=== PATIENT | female | born 1940 | race Two or more races ===

== ENCOUNTER 2024-04-24 13:18 | Emergency (ER) | payer MEDICARE, OTHER, SELFPAY ==
[2024-04-24 13:25] VITALS: BP 140/55
--- NOTE | 2024-04-24 15:25 | ED.GENMED ---
History of Present Illness
<Mikhail Acosta MD - Last Filed: 04/25/24 16:16>
General
Chief Complaint: Cold/Flu/URI Symptoms
Source: patient
Exam Limitations: none
Time Seen by Provider: 04/24/24 14:43
History of Present Illness
History of Present Illness:
83-year-old female brought in with her daughter. Complaining of some fever and chills for 3 days. Also some mild pain in the left flank posteriorly. No cough. Some mild shortness of breath at times.
Past History
<Mikhail Acosta MD - Last Filed: 04/25/24 16:16>
Past History
ED Past Medical History: HTN
ED Past Surgical History:
Social History
Tobacco: Non-smoker
Alcohol: None
Drug: None
Review of Systems
<Mikhail Acosta MD - Last Filed: 04/25/24 16:16>
Review of Systems
All Other Systems: Not applicable
Constitutional: Reports chills; Denies fever
Cardiac: Reports no symptoms
ABD/GI: Reports no symptoms
Phy Exam
<Mikhail Acosta MD - Last Filed: 04/25/24 16:16>
Physical Exam
Physical Exam:
GENERAL: Alert and oriented in no apparent distress
EYE: Orbits normal.
NECK: Supple, no significant adenopathy.
ENT: Pharynx without erythema
CARDIAC: Regular rate and rhythm without any obvious murmurs.
LUNGS: No respiratory distress however crackles in the left base. No CVA tenderness
ABDOMEN: Soft, without focal tenderness or distention
NEUROLOGICAL: Alert and oriented , grossly non-focal
SKIN: Warm and dry, no rash or lesion, no discoloration, skin intact.
MUSCULOSKELETAL: No edema,no deformity.Good color
PSYCH: Normal and appropriate interaction.
Course
<Mikhail Acosta MD - Last Filed: 04/25/24 16:16>
Orders/Labs/Results
Orders:
Orders
04/24/24 14:50
IV Insert/Care/Rem.- Treatment PRN
Pulse Ox/cont/shift [RESP] Stat
Quantity: 1
04/24/24 14:51
Electrocardiogram (*1) Stat
Reason for Study: Other
Other Reason for Exam: pneumonia
EKG- Treatment ONCE
CR Chest - 2 Views Urgent
Comment:
Reason For Exam: Chills/Rales left base
04/24/24 15:22
COVID-19 Antigen Urgent
Source: Nasal Swab
Complete Blood Count/With Diff Urgent
Influenza A+B Rapid Molecular Urgent
ELIZA Source: Nasal Swab
Specimen Description:
04/24/24 15:52
Basic Metabolic Panel Urgent
04/24/24 16:13
Urinalysis Reflex To Culture Urgent
Date Specimen was Collected: 04/24/24
Time Specimen was Collected: 16:01
Urine Microscopic Reflex Cult Urgent
04/24/24 16:55
Add On- LAB Urgent
Tests Added?: probnp
04/24/24 17:02
NT-proBNP Urgent
04/24/24 18:46
D-Dimer Urgent
Abnormal Lab Results
04/24/24 04/24/24 04/24/24
15:22 15:52 16:13
RBC 3.42 L 10^6/uL
(4.20-5.40)
Hgb 10.9 L g/dL
(12.0-16.0)
Hct 31.4 L %
(37.0-47.0)
MCH 31.9 H pg
(27.0-31.0)
Absolute Lymphs (auto) 1.0 L 10^3/uL
(1.2-3.4)
Absolute Monos (auto) 0.9 H 10^3/uL
(0.1-0.6)
Lymphocytes % 12.6 L %
(20.5-51.1)
Monocytes % 11.4 H %
(1.7-9.3)
D-Dimer
Sodium 126 L mmol/L
(135-145)
Chloride 89 L mmol/L
(98-107)
BUN 22 H mg/dl
(7-17)
Glucose 102 H mg/dl
(70-99)
Urine RBC 3-6 A /HPF
(0-2)
Urine Bacteria (Reflex) Few A
(Negative)
Urine Albumin (Reflex) 3+ A
(Neg - Trace)
04/24/24
18:46
RBC
Hgb
Hct
MCH
Absolute Lymphs (auto)
Absolute Monos (auto)
Lymphocytes %
Monocytes %
D-Dimer 0.62 H ug/mlFEU
(0.00-0.50)
Sodium
Chloride
BUN
Glucose
Urine RBC
Urine Bacteria (Reflex)
Urine Albumin (Reflex)
04/24/24 15:22
04/24/24 15:52
Vital Signs
Initial and Last Documented VS:
Initial Vital Signs
Temp Pulse Resp BP Pulse Ox
98.3 F 69 16 140/55 100
04/24/24 13:25 04/24/24 13:25 04/24/24 13:25 04/24/24 13:25 04/24/24 13:25
Last Documented Vital Signs
Temp Pulse Resp BP Pulse Ox
97.8 F 79 17 159/66 100
04/24/24 19:39 04/24/24 19:39 04/24/24 19:39 04/24/24 19:39 04/24/24 19:39
<Samreen De Oliveira MD - Last Filed: 04/24/24 19:31>
Orders/Labs/Results
Orders:
Orders
04/24/24 14:50
IV Insert/Care/Rem.- Treatment PRN
Pulse Ox/cont/shift [RESP] Stat
Quantity: 1
04/24/24 14:51
Electrocardiogram (*1) Stat
Reason for Study: Other
Other Reason for Exam: pneumonia
EKG- Treatment ONCE
CR Chest - 2 Views Urgent
Comment:
Reason For Exam: Chills/Rales left base
04/24/24 15:22
COVID-19 Antigen Urgent
Source: Nasal Swab
Complete Blood Count/With Diff Urgent
Influenza A+B Rapid Molecular Urgent
ELIZA Source: Nasal Swab
Specimen Description:
04/24/24 15:52
Basic Metabolic Panel Urgent
04/24/24 16:13
Urinalysis Reflex To Culture Urgent
Date Specimen was Collected: 04/24/24
Time Specimen was Collected: 16:01
Urine Microscopic Reflex Cult Urgent
04/24/24 16:55
Add On- LAB Urgent
Tests Added?: probnp
04/24/24 17:02
NT-proBNP Urgent
04/24/24 18:46
D-Dimer Urgent
Abnormal Lab Results
04/24/24 04/24/24 04/24/24
15:22 15:52 16:13
RBC 3.42 L 10^6/uL
(4.20-5.40)
Hgb 10.9 L g/dL
(12.0-16.0)
Hct 31.4 L %
(37.0-47.0)
MCH 31.9 H pg
(27.0-31.0)
Absolute Lymphs (auto) 1.0 L 10^3/uL
(1.2-3.4)
Absolute Monos (auto) 0.9 H 10^3/uL
(0.1-0.6)
Lymphocytes % 12.6 L %
(20.5-51.1)
Monocytes % 11.4 H %
(1.7-9.3)
D-Dimer
Sodium 126 L mmol/L
(135-145)
Chloride 89 L mmol/L
(98-107)
BUN 22 H mg/dl
(7-17)
Glucose 102 H mg/dl
(70-99)
Urine RBC 3-6 A /HPF
(0-2)
Urine Bacteria (Reflex) Few A
(Negative)
Urine Albumin (Reflex) 3+ A
(Neg - Trace)
04/24/24
18:46
RBC
Hgb
Hct
MCH
Absolute Lymphs (auto)
Absolute Monos (auto)
Lymphocytes %
Monocytes %
D-Dimer 0.62 H ug/mlFEU
(0.00-0.50)
Sodium
Chloride
BUN
Glucose
Urine RBC
Urine Bacteria (Reflex)
Urine Albumin (Reflex)
04/24/24 15:22
04/24/24 15:52
Vital Signs
Initial and Last Documented VS:
Initial Vital Signs
Temp Pulse Resp BP Pulse Ox
98.3 F 69 16 140/55 100
04/24/24 13:25 04/24/24 13:25 04/24/24 13:25 04/24/24 13:25 04/24/24 13:25
Last Documented Vital Signs
Temp Pulse Resp BP Pulse Ox
97.8 F 79 17 159/66 100
04/24/24 19:39 04/24/24 19:39 04/24/24 19:39 04/24/24 19:39 04/24/24 19:39
<Mikhail Acosta MD - Last Filed: 04/25/24 16:16>
MDM/Problems Addressed
Differential Diagnosis Includes:
Possible left lower lobe pneumonia. Possible urinary/kidney issue. Workup in progress. COVID flu chest x-ray urine. Patient in no distress
<Mikhail Acosta MD - Last Filed: 04/25/24 16:16>
*Pulse Oximetry
Patient hypoxic: no
*EKG
Interpreted by ED Provider?: Yes
Interpretation: abnormal
Comparison EKG: no changes
Heart Rate: 81
Rate: normal
Rhythm: sinus
[place]: normal axis
Interval: normal interval
QRS Pattern: right bundle branch block
Ischemia: T-wave inversion
*Critical Care Note
Total Time (30-74mins, 75-104mins- exclusive of procedures): Not Applicable
<Mikhail Acosta MD - Last Filed: 04/25/24 16:16>
Update Note
Update Note:
. Patient with hyponatremia. Crackles in the left base. May be clinical pneumonia. Possibly a mild component of CHF. Warrants inpatient management
<Samreen De Oliveira MD - Last Filed: 04/24/24 19:31>
Update Note
Update Note:
. Patient with hyponatremia. Crackles in the left base. May be clinical pneumonia. Possibly a mild component of CHF. Warrants inpatient management
731pm follow up on sign out---D dimer noted to be normal (age adjusted), recommendation for d/c.
ED Attending Note
<Mikhail Acosta MD - Last Filed: 04/25/24 16:16>
-
Portions of this chart may have been created with voice recognition software.� Occasional wrong word or��sound alike� substitutions may have occurred due to the inherent limitations of voice recognition software.
Discharge Plan
Departure
Patient Disposition: Home (Routine Discharge)
Date of Disposition: 04/24/24
Time of Disposition: 19:31
Patient with high blood pressure during this ER visit?: Yes
Discharge Problem:
Left posterior chest pain, Hyponatremia/dyspnea
Instructions: Upper Back Pain (DC), Hyponatremia, BLOOD PRESSURE
Prescriptions:
No Action
multivitamin with folic acid [Tab-A-Luba] 1 TABLET tablet
1 tab PO DAILY
hydralazine 25 MG tablet
50 mg PO BID Qty: 60 0RF
metoprolol succinate 25 MG tablet extended release 24 hr
25 mg PO DAILY Qty: 30 0RF
atorvastatin 40 mg Tablet
40 mg PO QPM Qty: 30 0RF
aspirin 81 mg Tablet,Chewable
81 mg PO DAILY Qty: 30 1RF
calcium carbonate [Calcium 500] 500 mg calcium (1,250 mg) Tablet
500 mg PO DAILY
amlodipine [Norvasc] 10 mg Tablet
10 mg PO DAILY
torsemide 10 mg tablet
5 mg PO DAILY
Referrals:
Lindsay Machado MD [Family Provider] - Tomorrow
Activity Restrictions/Additional Instructions:
Fluid restriction
Call your primary physician tomorrow to get a repeat sodium level done in 2 to 3 days
Interventions
Interventions:
*Risk Screen - Suicide Last Done: 04/24/24 13:25
*General Assessment Last Done: 04/24/24 13:25
*Neglect/Abuse Screening Last Done: 04/24/24 13:40
ED- Fall Risk Assessment Last Done: 04/24/24 19:39
*ED COVID-19 Vaccine History Last Done: 04/24/24 13:25
*Nursing Disposition Last Done: 04/24/24 19:39
ED- Pulmonary Assessment Last Done: 04/24/24 13:40
Discharge Date and Time
Discharge Date/Time: 04/24/24 19:50
Print Language: GUINEAN
[2024-04-24 15:49] LABS: % Basophils 0.4 % (0-2); % Eosinophils 0.1 % (0-6); % Immature Granulocytes 0.3 % (0-0.5); % Lymphocytes 12.6 % (20.5-51.1); % Monocytes 11.4 % (1.7-9.3); % Neutrophils 75.2 % (42.2-75.2); Absolute Monocytes 0.9 10^3/uL (0.1-0.6); Absolute Neutrophils 5.8 10^3/uL (1.4-6.5); Hematocrit 31.4 % (37.0-47.0); Hemoglobin 10.9 g/dL (12.0-16.0); Mean Corp Hgb Conc. 34.7 g/dL (33.0-37.0); Mean Corpuscular Hgb 31.9 pg (27.0-31.0); Mean Corpuscular Volume 91.8 fL (81.0-99.0); Mean Platelet Volume 10.4 fL (7.4-10.4); Nucleated Red Blood Cells % 0 %; Platelet Count 197 10^3/uL (130-400); Red Blood Cell Count 3.42 10^6/uL (4.20-5.40); White Blood Cell Count 7.7 10^3/uL (4.8-10.8)
[2024-04-24 15:53] LABS: COVID-19 Antigen Negative (Negative)
[2024-04-24 16:20] LABS: Urine Albumin 3+ (Neg - Trace); Urine Bilirubin Negative (Negative); Urine Character Clear (Clear); Urine Color Yellow; Urine Glucose Negative (Negative); Urine Ketone Negative (Negative); Urine Leukocyte Negative (Negative); Urine Nitrite Negative (Negative); Urine Occult Blood Negative (Negative); Urine Specific Gravity 1.015 (<1.030); Urine Urobilinogen Negative (Neg - 1+)
[2024-04-24 16:24] LABS: Blood Urea Nitrogen 22 mg/dl (7-17); Calcium 8.9 mg/dl (8.4-10.2); Carbon Dioxide 26 mmol/L (22-30); Chloride 89 mmol/L (98-107); Glucose 102 mg/dl (70-99); Potassium 4.5 mmol/L (3.5-5.1); Sodium 126 mmol/L (135-145); eGFR > 60.00
[2024-04-24 16:31] LABS: Urine Mucus Few
[2024-04-24 16:32] LABS: Urine Bacteria Few (Negative); Urine Hyaline Cast >15 /LPF (0-2)
[2024-04-24 17:32] LABS: NT-proBNP 3780 pg/ml
[2024-04-24 19:15] LABS: D-Dimer 0.62 ug/mlFEU (0.00-0.50)
[2024-04-24 19:39] VITALS: BP 159/66
== END 2024-04-24 19:50 | disposition home or self-care (01) ==
LOC: EMR 13:18
PROVIDERS: EMERGENCY PHYSICIAN Emergency Medicine; FAMILY PHYSICIAN Emergency Medicine
DX: R07.89 Other chest pain (principal); E87.1 Hypo-osmolality and hyponatremia; R06.00 Dyspnea, unspecified; R50.9 Fever, unspecified; I10 Essential (primary) hypertension
CPT/HCPCS: 99283; 71046; 80048; 81003; 81015; 83880; 85025; 85379; 87502; 87811; 93005

== ENCOUNTER → 2024-05-05 07:12 | Outpatient (REF) | payer MEDICARE, OTHER, SELFPAY | LOC: RCS 07:12 | PROVIDERS: ATTENDING PHYSICIAN Internal Medicine Cardiovascular Disease; FAMILY PHYSICIAN Emergency Medicine | DX: I10 Essential (primary) hypertension (principal); I50.30 Unspecified diastolic (congestive) heart failure | CPT/HCPCS: 93306 ==

== ENCOUNTER 2024-09-10 17:22 | Inpatient (IN) | payer MEDICARE, OTHER, SELFPAY ==
[2024-09-10] VITALS (10 sets, daily range): BP systolic 119–158; BP diastolic 48–65; BMI 24.1; BMI 23.0
[2024-09-10 14:52] LABS: % Basophils 0.1 % (0-2); % Immature Granulocytes 0.5 % (0-0.5); % Lymphocytes 2.6 % (20.5-51.1); % Monocytes 8.3 % (1.7-9.3); % Neutrophils 88.5 % (42.2-75.2); Absolute Immature Granulocytes 0.1 10^3/uL (0-0.05); Absolute Lymphocytes 0.3 10^3/uL (1.2-3.4); Absolute Monocytes 0.9 10^3/uL (0.1-0.6); Absolute Neutrophils 9.3 10^3/uL (1.4-6.5); Hematocrit 30.3 % (37.0-47.0); Hemoglobin 10.2 g/dL (12.0-16.0); Mean Corp Hgb Conc. 33.7 g/dL (33.0-37.0); Mean Corpuscular Hgb 31.1 pg (27.0-31.0); Mean Corpuscular Volume 92.4 fL (81.0-99.0); Mean Platelet Volume 10.3 fL (7.4-10.4); Nucleated Red Blood Cells % 0 %; Platelet Count 229 10^3/uL (130-400); Red Blood Cell Count 3.28 10^6/uL (4.20-5.40); Red Cell Dist. Width 12.1 % (11.5-14.5); White Blood Cell Count 10.5 10^3/uL (4.8-10.8)
[2024-09-10 15:04] LABS: ALT (SGPT) 29 U/L (0-35); AST (SGOT) 37 U/L (14-36); Albumin 4.2 g/dl (3.5-5.0); Alkaline Phosphatase 95 U/L (38-126); Blood Urea Nitrogen 26 mg/dl (7-17); Calcium 9.3 mg/dl (8.4-10.2); Carbon Dioxide 28 mmol/L (22-30); Chloride 89 mmol/L (98-107); Estimated Creatinine Clearance 32 ml/min; Glucose 173 mg/dl (70-99); Potassium 4.7 mmol/L (3.5-5.1); Sodium 125 mmol/L (135-145); Total Bilirubin 0.8 mg/dl (0.2-1.3); Total Protein 7.2 g/dl (6.3-8.2); eGFR 55.55
--- NOTE | 2024-09-10 15:12 | ED.GENMED ---
History of Present Illness
General
Chief Complaint: Weakness
Time Seen by Provider: 09/10/24 14:21
History of Present Illness
History of Present Illness:
84-year-old female with history of hypertension presenting to the emergency department for shortness of breath and weakness. Patient arrives with daughter who notes symptoms for the past week. However, symptoms appeared to have worsened today.
Patient was saying that she did not feel well so daughter called the ambulance. She does note that she saw the asset manager yesterday, told her everything was okay. She did change her medications, stopped her amlodipine and started nifedipine
instead. Patient has had increased difficulty breathing, swelling in her legs, swelling in her face. Does also note dyspnea on exertion. Denies chest pain. Denies cough or fever. Denies abdominal pain or GI symptoms. Denies any known sick
contacts. Denies additional acute complaints
Past History
Past History
ED Past Medical History: HTN
ED Past Surgical History:
Social History
Tobacco: Non-smoker
Alcohol: None
Drug: None
Phy Exam
Physical Exam
Physical Exam:
General: no clinical signs of dehydration, nontoxic and in no acute distress
HEENT: protecting airway
Neck: appears supple, JVD
CV: Normal heart rate, regular rhythm, no evidence of cyanosis
Resp: Mild tachypnea with crackles bilaterally
Abd: Soft and non-distended, no tenderness to palpation
Extremities: No deformities, minimal swelling to the ankles
Neuro: alert, no focal neurologic deficit
: deferred
Rectal: deferred
Psych: Normal affect
Skin: Intact
Course
Orders/Labs/Results
Orders:
Orders
09/10/24 14:23
EKG [Electrocardiogram (*1)] Urgent
Reason for Study: Fatigue / Weakness
09/10/24 14:24
EKG- Treatment ONCE
09/10/24 14:34
COVID-19 Antigen Urgent
Source: Nasal Swab
Complete Blood Count/With Diff Urgent
Comprehensive Metabolic Panel Urgent
Influenza A+B Rapid Molecular Urgent
ELIZA Source: Nasal Swab
Specimen Description:
09/10/24 14:45
CR Chest - 2 Views Urgent
Comment:
Reason For Exam: SOB
09/10/24 14:51
NT-proBNP Urgent
Troponin I Urgent
09/10/24 15:15
Electrocardiogram (*1) Urgent
Reason for Study: Fatigue / Weakness
EKG- Treatment ONCE
09/10/24 16:21
Procalcitonin Urgent
PCT Algorithmm Indication: Respiratory
Abnormal Lab Results
09/10/24
14:34
RBC 3.28 L 10^6/uL
(4.20-5.40)
Hgb 10.2 L g/dL
(12.0-16.0)
Hct 30.3 L %
(37.0-47.0)
MCH 31.1 H pg
(27.0-31.0)
Abs Immat Gran (auto) 0.1 H 10^3/uL
(0-0.05)
Absolute Neuts (auto) 9.3 H 10^3/uL
(1.4-6.5)
Absolute Lymphs (auto) 0.3 L 10^3/uL
(1.2-3.4)
Absolute Monos (auto) 0.9 H 10^3/uL
(0.1-0.6)
Neutrophils % 88.5 H %
(42.2-75.2)
Lymphocytes % 2.6 L %
(20.5-51.1)
Sodium 125 L mmol/L
(135-145)
Chloride 89 L mmol/L
(98-107)
BUN 26 H mg/dl
(7-17)
Glucose 173 H mg/dl
(70-99)
AST 37 H U/L
(14-36)
09/10/24 14:34
09/10/24 14:34
Vital Signs
Initial and Last Documented VS:
Initial Vital Signs
BP
139/56
09/10/24 14:17
Last Documented Vital Signs
Temp Pulse Resp BP Pulse Ox
97.6 F 74 31 131/51 97
09/10/24 14:19 09/10/24 16:00 09/10/24 16:00 09/10/24 16:00 09/10/24 16:00
MDM/Problems Addressed
MDM/Problems Addressed:
84-year-old female with history of high blood pressure presenting for generalized weakness and shortness of breath. Vital signs on arrival are significant for tachypnea.
On exam, patient is in no acute distress, however is tachypneic with increased work of breathing and crackles bilaterally. Patient also has signs of swelling, lower extremities and some puffiness to the face. Symptoms are concerning for possible
volume overload state such as CHF. Plan for EKG, laboratory analysis, chest x-ray imaging. Will also obtain viral swabs, however afebrile, nontoxic with lower suspicion for systemic infection
16:15 -patient's BNP is elevated. Chest x-ray shows patchy opacity in the left lung, possible mild pneumonia. Patient without cough or fever, no leukocytosis. Lower suspicion for infection. Continue to suspect volume overload state. Will start
patient on Lasix. Patient also noted to be hyponatremic, which she has had in the past. Will continue to monitor. Plan for admission given her increased work of breathing
*EKG
Interpreted by ED Provider?: Yes
EKG Intrepretation Date: 09/10/24
EKG Intrepretation Time: 16:22
Interpretation: normal
Comparison EKG: no changes (04/24/24)
Heart Rate: 75
Rate: normal
Rhythm: sinus
[place]: normal axis
Interval: normal interval
QRS Pattern: right bundle branch block
Ischemia: no ischemia
*Critical Care Note
Total Time (30-74mins, 75-104mins- exclusive of procedures): Not Applicable
ED Attending Note
-
Portions of this chart may have been created with voice recognition software.� Occasional wrong word or��sound alike� substitutions may have occurred due to the inherent limitations of voice recognition software.
Discharge Plan
Departure
Prescriptions:
No Action
multivitamin with folic acid [Tab-A-Luba] 1 TABLET tablet
1 tab PO DAILY
hydralazine 25 MG tablet
50 mg PO BID Qty: 60 0RF
metoprolol succinate 25 MG tablet extended release 24 hr
25 mg PO DAILY Qty: 30 0RF
atorvastatin 40 mg Tablet
40 mg PO QPM Qty: 30 0RF
aspirin 81 mg Tablet,Chewable
81 mg PO DAILY Qty: 30 1RF
calcium carbonate [Calcium 500] 500 mg calcium (1,250 mg) Tablet
500 mg PO DAILY
amlodipine [Norvasc] 10 mg Tablet
10 mg PO DAILY
torsemide 10 mg tablet
5 mg PO DAILY
Referrals:
Lindsay Machado MD [Family Provider] -
Interventions
Interventions:
*Risk Screen - Suicide Last Done: 09/10/24 14:26
*General Assessment Last Done: 09/10/24 14:50
*Neglect/Abuse Screening Last Done: 09/10/24 14:26
*ED- Fall Risk Assessment Last Done: 09/10/24 14:50
*ED COVID-19 Vaccine History Last Done: 09/10/24 14:50
ED- Cardiac Assessment Last Done: 09/10/24 14:24
ED- Neurological Assessment Last Done: 09/10/24 14:24
ED- Pulmonary Assessment Last Done: 09/10/24 14:24
Discharge Date and Time
Print Language: SWISS
[2024-09-10 15:24] LABS: COVID-19 Antigen Negative (Negative)
[2024-09-10 15:30] LABS: NT-proBNP 5430 pg/ml; Troponin I < 0.012 ng/ml
--- NOTE | 2024-09-10 17:00 | HPS.HSE ---
Family Physician
-
Family Physician: Lindsay Machado MD
Chief Complaint
-
shortness of breath
History of Present Illness
84-year-old female past medical history of hypertension, diastolic CHF, hypertension, CAD, right bundle branch block, paroxysmal atrial tachycardia, bradycardia, chronic hyponatremia, hyperlipidemia, presenting with shortness of breath and weakness.
She arrives with her daughter who notes symptoms for the few days but got worse today. She has increased shortness of breath, swelling in her legs and swelling particularly right leg and in her face. She has shortness of breath with exertion.
Denies chest pain. Denies cough or fever. Denies abdominal pain or nausea or vomiting or diarrhea. Denies sick contacts.
Her weight has been stable.
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 Regalado yesterday and everything was normal at that time.
Patient was previously on lisinopril which was changed to amlodipine due to hyperkalemia. She was treated with Lokelma. Yesterday at her set illustrator visit she was changed from amlodipine to nifedipine although her blood pressure has been stable.
Patient is also complaining of pain in her left upper back. No recent trauma or injury.
She does not smoke or drink alcohol.
Medical History
Past Medical History
Past Medical History: Reports Other (hypertension, diastolic CHF, hypertension, CAD, right bundle branch block, paroxysmal atrial tachycardia, bradycardia, chronic hyponatremia, hyperlipidemia)
Past Surgical History: Reports None
Social History
Tobacco: Non-smoker
Alcohol: None
Drug: None
Family History
Family History: Not pertinent
Allergies / Home Medications
Allergies reflects when Allergies were last updated in [facility].
Home Medications with original date entered in [facility]
Allergy/Medication List:
Allergies
Allergy/AdvReac Type Severity Reaction Status Date / Time
No Known Allergies Allergy Verified 09/10/24 14:19
Home Medications
multivitamin with folic acid 400 mcg tablet (Tab-A-Luba) 1 tab PO DAILY Supplement 04/13/20
hydralazine 25 mg tablet 50 mg (2 x 25 mg) PO BID #60 tabs 04/19/20
metoprolol succinate 25 mg tablet,extended release 24 hr 25 mg PO DAILY #30 tabs 04/19/20
aspirin 81 mg chewable tablet 81 mg PO DAILY #30 tabs 06/17/22
atorvastatin 40 mg tablet 40 mg PO QPM #30 tabs 06/17/22
amlodipine 10 mg tablet (Norvasc) 10 mg PO DAILY 04/24/24
calcium carbonate 500 mg PO DAILY 04/24/24
torsemide 10 mg tablet 5 mg PO DAILY 04/24/24
Review of Systems
-
History Source: Patient
A 12 point ROS was completed and negative except as noted: Yes
Constitutional: Reports No Symptoms
EENT: Reports No Symptoms
Respiratory: Reports See HPI
Cardiac: Reports See HPI
Abdomen/GI: Reports No Symptoms
: Reports No Symptoms
Musculoskeletal: Reports No Symptoms
Skin: Reports No Symptoms
Neurological: Reports No Symptoms
Endocrine: Reports No Symptoms
Hematologic/Lymphatic: Reports No Symptoms
Psych: Reports No Symptoms
Physical Exam
Vital Signs
Vital Signs
Temp Pulse Resp BP Pulse Ox
97.6 F 74 31 131/51 97
09/10/24 14:19 09/10/24 16:00 09/10/24 16:00 09/10/24 16:00 09/10/24 16:00
Physical Exam
General: Well Developed, Well Nourished and No Apparent Distress
HEENT: NormoCephalic, Moist mucous membranes and Atraumatic
Respiratory: Clear
Cardiac: S1/S2, Regular Rhythm and Peripheral Edema; No Murmur or Rub
GI: Soft, Non Tender, Non Distended and Normal Bowel Sounds; No Organomegaly
Rectal: Deferred by Provider
Musculoskeletal: No Clubbing, No Cyanosis and No Edema
Skin: No Rash
Neuro: Nonfocal/grossly intact
Laboratory Results
-
09/10/24 14:34
09/10/24 14:34
Laboratory Results
Total Bilirubin 0.8 mg/dl (0.2-1.3) 09/10/24 14:34
AST 37 U/L (14-36) H 09/10/24 14:34
ALT 29 U/L (0-35) 09/10/24 14:34
Alkaline Phosphatase 95 U/L (38-126) 09/10/24 14:34
Troponin I < 0.012 ng/ml 09/10/24 14:51
Data Reviewed
-
Lab Data: Labs Reviewed by me
Old Records: Reviewed
Impression/Plan
-
IMPRESSION:
PLAN:
# Acute HFpEF exacerbation
-Cardiac BNP of 5400
-Chest x-ray shows patchy opacity in the left lung base suspicious for mild pneumonia, stable cardiomegaly
-No infectious symptoms, Pro-Humphrey pending
-Check I's and O's, daily weights
-40 IV Lasix daily
-Right leg is asymmetrically more swollen, daughter would like to hold off on venous ultrasound at this time
-Cardiology consulted
# Upper back pain likely muscular
-Tylenol as needed
CAD
-Continue aspirin, statin
History of right bundle branch block
Paroxysmal atrial tachycardia
-Continue metoprolol
History of bradycardia
Essential hypertension
-Continue nifedipine
Chronic hyponatremia
-Sodium 125 from 126 previously
-Should improve with Lasix
Hyperlipidemia
Chronic anemia
-Hemoglobin stable
Full code
DVT prophylaxis�heparin
Cardiac diet
[2024-09-10] MEDS: LASIX 40 MG IV (17:13)
[2024-09-10 17:44] LABS: Procalcitonin < 0.05 ng/ml (0.0-0.25)
[2024-09-10] MEDS: DUONEB 3 ML INH (21:40)
[2024-09-10] MEDS: APRESOLINE 50 MG PO (22:03)
[2024-09-10] MEDS: LIPITOR 40 MG PO (22:03)
[2024-09-11 04:19] VITALS: BP 149/63
[2024-09-11 06:00] VITALS: BMI 21.1
[2024-09-11 06:06] LABS: % Basophils 0.1 % (0-2); % Eosinophils 0.1 % (0-6); % Immature Granulocytes 0.5 % (0-0.5); % Monocytes 9.7 % (1.7-9.3); % Neutrophils 85.6 % (42.2-75.2); Absolute Immature Granulocytes 0.1 10^3/uL (0-0.05); Absolute Lymphocytes 0.4 10^3/uL (1.2-3.4); Absolute Monocytes 1.1 10^3/uL (0.1-0.6); Absolute Neutrophils 9.3 10^3/uL (1.4-6.5); Hematocrit 27.8 % (37.0-47.0); Hemoglobin 9.6 g/dL (12.0-16.0); Mean Corp Hgb Conc. 34.5 g/dL (33.0-37.0); Mean Corpuscular Hgb 31.5 pg (27.0-31.0); Mean Corpuscular Volume 91.1 fL (81.0-99.0); Mean Platelet Volume 10.8 fL (7.4-10.4); Nucleated Red Blood Cells % 0 %; Platelet Count 216 10^3/uL (130-400); Red Blood Cell Count 3.05 10^6/uL (4.20-5.40); Red Cell Dist. Width 11.9 % (11.5-14.5); White Blood Cell Count 10.9 10^3/uL (4.8-10.8)
[2024-09-11 06:35] LABS: ALT (SGPT) 36 U/L (0-35); AST (SGOT) 43 U/L (14-36); Albumin 4.2 g/dl (3.5-5.0); Alkaline Phosphatase 100 U/L (38-126); Blood Urea Nitrogen 30 mg/dl (7-17); Carbon Dioxide 29 mmol/L (22-30); Chloride 87 mmol/L (98-107); Estimated Creatinine Clearance 33 ml/min; Glucose 109 mg/dl (70-99); Potassium 4.5 mmol/L (3.5-5.1); Sodium 126 mmol/L (135-145); Total Bilirubin 0.8 mg/dl (0.2-1.3); Total Protein 6.8 g/dl (6.3-8.2); eGFR 55.55
[2024-09-11 07:30] VITALS: BP 132/52
--- NOTE | 2024-09-11 08:54 | W.PN.HOSP.TC ---
Addendum entered and electronically signed by Terrell Mojica DO 09/11/24 13:48:
Correction: Acute on chronic heart failure with preserved EF exacerbation.
Original Note:
Today's Communication/Plan
-
Diuresis
Cardiology consult
Fluid restriction
Check urine studies, serum osmolarity, TSH
Assessment / Plan
Assessment / Plan
Gen-AAOx3, NAD
HEENT-NC, AT, anicteric, clear oral mm
Neck-supple
CV-reg, no M, +S1/S2
Lungs-mild end expiratory wheezing bilaterally
Abd-soft, NT, ND
Ext-no edema
Musculoskeletal-no cyanosis, clubbing
Skin-warm and dry
Neuro-grossly non-focal
Psych-calm, cooperative
Chronic heart failure preserved EF exacerbation -improving, continue IV Lasix. Consult cardiology. BNP 5430. Clinically improving, shortness of breath resolved. Although unclear if accurate, weight is down.
Chest x-ray reviewed. Patchy left base opacity noted, clinically doubt pneumonia. Repeat chest x-ray as an outpatient.
Chronic hyponatremia -sodium 126. Check urine studies, serum osmolarity, TSH. Fluid restriction.
Chronic normocytic anemia -hemoglobin at baseline. Outpatient follow-up.
Hyperlipidemia -atorvastatin.
Essential hypertension
Full code
Anticipated Discharge: 24 - 48 hours
Subjective/Interval History
-
Date of Service: September 11, 2024
Patient seen and examined. No complaints.
Objective Data
-
Labs:
Laboratory Results
09/11/24
05:37
WBC 10.9 H
Hgb 9.6 L
Hct 27.8 L
Plt Count 216
Sodium 126 L
Potassium 4.5
Chloride 87 L
Carbon Dioxide 29
BUN 30 H
Creatinine 1.0
Glucose 109 H
Calcium 9.0
Total Bilirubin 0.8
AST 43 H
ALT 36 H
Alkaline Phosphatase 100
Vital Signs:
Vital Signs
Temp Pulse Resp BP Pulse Ox
97.9 F 85 18 149/63 93
09/11/24 04:19 09/11/24 04:19 09/11/24 04:19 09/11/24 04:19 09/11/24 04:19
I&O
09/10/24 09/11/24 09/12/24
06:59 06:59 06:59
Output Total 300 / 300
Balance -300 / -300
Review of Systems
-
History Source: Patient
All other systems: Reviewed and negative
[2024-09-11] MEDS: APRESOLINE 50 MG PO ×2 (09:30→21:30)
[2024-09-11] MEDS: LASIX 40 MG IV (09:30)
[2024-09-11] MEDS: PROCARDIA XL (EXTENDED RELEASE) 30 MG PO (09:31)
[2024-09-11] MEDS: THERAGRAN 1 TABLET PO (09:31)
[2024-09-11] MEDS: LOW STRENGTH ASPIRIN 81 MG PO (09:31)
[2024-09-11] MEDS: TOPROL XL 25 MG PO (09:31)
[2024-09-11 10:20] LABS: Osmolality Urine 358 mOsm/kg (300-900)
[2024-09-11 10:22] LABS: TSH 1.73 uIU/ml (0.47-4.68)
[2024-09-11 10:27] LABS: Urine Sodium 5 mmol/L (30-90)
[2024-09-11 10:48] LABS: Osmolality Serum 265 mOsm/kg (275-300)
[2024-09-11 15:00] VITALS: BP 133/56
--- NOTE | 2024-09-11 15:14 | CM ---
conference manager reviewed patient's chart and spoke with patient and daughter at bedside, patient lives with daughter is independent with adl's and ambulation, no dme, home with daughter when stable.
PCP: Lindsay Machado
[facility] in [place]
Plan; Home when stable, no needs.
[2024-09-11] MEDS: TUMS CHEWABLE TABLET 200 MG PO (16:34)
[2024-09-11] MEDS: LIPITOR 40 MG PO (16:36)
--- NOTE | 2024-09-11 16:50 | CON.CAR ---
Consultation
Consultation Request
Date/Time Consultation Requested: 09/11/24 11:00AM
Date/Time Consultation Performed: 09/11/24 3:30 PM
Requesting Provider: Dr Paz
Performing Provider: Dr Dickson
Reason for Consultation: CHF
Medical History
-
Chief Complaint: chest pain
History of Present Illness:
84 year old female with past medical history of chronic heart failure with preserved ejection fraction, hypertension, hyponatremia/hyperkalemia, history of abnormal troponin in the setting of COVID-pneumonia 2021, previous syncope and atrial
tachycardia presents with face swelling, leg edema, and shortness of breath. She was recently seen in [facility] office and had some mild dyspnea but overall felt okay. 1 day prior to admission she had increased fatigue, shortness of breath, and more
swelling in her face and abdomen. Her breathing worsened and she had some orthopnea and presented to the emergency room was found to be in acute heart failure with preserved ejection fraction. She did admit to drinking more water over the past 24
hours and did have a diet that was somewhat high in salt. She was having some left axillary and flank pains. She has no fevers or chills. She has no coughing or wheezing. She denies any palpitations or syncope. Her lisinopril was recently
stopped due to elevated potassium.
Past Medical History
Past Medical History: CHF (chronic HfpEF), HTN and Other (hyponatremia, hyperkalemia, RBBB)
Past Surgical History:
Social History
Tobacco: Non-Smoker
Alcohol: None
Living: With Family
Family History
Family History: Hypertension
Allergies / Home Medications
Allergy/AdvReac Type Severity Reaction Status Date / Time
No Known Allergies Allergy Verified 09/10/24 14:19
�Medication �Instructions �Recorded �Confirmed �Type
multivitamin with folic acid 400 1 tab PO DAILY Supplement 04/13/20 09/10/24 History
mcg tablet (Tab-A-Luba)
hydralazine 25 mg tablet 50 mg (2 x 25 mg) PO BID #60 tabs 04/19/20 09/10/24 Rx
metoprolol succinate 25 mg 25 mg PO DAILY #30 tabs 04/19/20 09/10/24 Rx
tablet,extended release 24 hr
aspirin 81 mg chewable tablet 81 mg PO DAILY #30 tabs 06/17/22 09/10/24 Rx
atorvastatin 40 mg tablet 40 mg PO QPM #30 tabs 06/17/22 09/10/24 Rx
calcium carbonate 500 mg PO DAILY Supplement 04/24/24 09/10/24 History
nifedipine 30 mg tablet,extended 30 mg PO DAILY Blood Pressure 09/10/24 09/10/24 History
release 24 hr
omega 7-hsn-ypp-fish oil 1,000 mg 1 cap PO DAILY Supplement 09/10/24 09/10/24 History
(120 mg-180 mg) capsule (Fish Oil)
prednisolone 1 %-moxifloxacin 0.5 1 drp ophthalmic (eye) QID Eye 09/10/24 09/10/24 History
%-bromfenac 0.075 % eye drops susp Condition
sodium zirconium cyclosilicate 5 5 g PO DAILY Supplement 09/10/24 09/10/24 History
gram oral powder packet (Lokelma)
torsemide 5 mg tablet 5 mg PO DAILY Fluid 09/10/24 09/10/24 History
Retention/Swelling
Review of Systems
-
History Source: Family
Constitutional: Weight Gain and Fatigue
EENT: No Symptoms
Respiratory: Trouble Breathing
Cardiac: Chest Pain
Abdomen/GI: No Symptoms
: No Symptoms
Musculoskeletal: No Symptoms
Skin: No Symptoms
Neurological: Weakness
Endocrine: No Symptoms
Physical Exam
Vital Signs
Temp Pulse Resp BP Pulse Ox
97.7 F 92 16 132/52 91
09/11/24 07:30 09/11/24 07:30 09/11/24 07:30 09/11/24 07:30 09/11/24 07:30
Lab Results
09/11/24 05:37
09/11/24 05:37
Troponin I < 0.012 ng/ml 09/10/24 14:51
Gra-N-Ljneapxahdg Pept 5430 pg/ml 09/10/24 14:51
Physical Exam
General: Well Developed, Well Nourished and No Apparent Distress
HEENT: Normocephalic and Anicteric
Respiratory: Clear and Non Labored Respirations
Cardiac: S1/S2, Regular Rhythm and Murmur (06/27 syst LSB)
GI: Soft, Non Tender and Non Distended
Genito-urinary: No Costovertebral Tender
Musculoskeletal: No Cyanosis
Skin: Warm and Dry
Neuro: AO x 3
Psych: Calm
Impression / Plan
-
Assess:
Acute heart failure with preserved EF
COVID-pneumonia May 2022 with abnormal troponin
Chronic hyponatremia
Hyperkalemia with lisinopril
Hypertension
Paroxysmal atrial tachycardia
History of bradycardia
Hypercholesterolemia
Right bundle branch block
Echo April 2024, EF 71%, mild LVH, mild MR, mild TR with PA pressure 30
Lexiscan nuclear stress test August 13, 2022 with fixed inferior defect and no ischemia. EF 60%
PLan:
She presents with shortness of breath and acute heart failure with preserved ejection fraction. Lisinopril was recently stopped and she admits to drinking significant amounts of fluid. proBNP is elevated at 5430. Troponin is normal and EKG
reveals normal sinus rhythm with marked ST and T wave abnormalities in the inferolateral leads. EKG is unchanged from previous EKG
Clinically she is improved with diuresis. Continue IV Lasix for another 24 hours then switch to oral diuretics.
Continue metoprolol 25 mg daily. She has had bradycardia the past so would not further titrate. Would hold on lisinopril with hyperkalemia. Continue nifedipine 30 mg daily and hydralazine 50 mg twice daily.
Check on cost of Natanxiga. Creatinine 1.0.
She has a history of chronic hyponatremia. Continue to follow. Sodium currently 126. Could consider a dose of Samsca but underlying sodium over past several years has been in the 125-130 range
Will repeat echocardiogram to reevaluate LVEF and valves.
Data Reviewed
-
EKG: Tracing Personally Visualized and interpreted
Radiology: Report Reviewed by me
Medical Tests (Nuc Med, Echo etc): Report Reviewed by me
Labs: Labs Reviewed by me
Old Records: Reviewed
[2024-09-11 19:40] VITALS: BP 102/50
[2024-09-11] MEDS: DUONEB 3 ML INH (22:42)
[2024-09-11 23:31] VITALS: BP 145/64
[2024-09-12 03:45] VITALS: BP 138/63
[2024-09-12 06:00] VITALS: BMI 20.1
[2024-09-12 07:03] LABS: ALT (SGPT) 42 U/L (0-35); AST (SGOT) 42 U/L (14-36); Albumin 3.7 g/dl (3.5-5.0); Alkaline Phosphatase 107 U/L (38-126); Blood Urea Nitrogen 40 mg/dl (7-17); Calcium 9.3 mg/dl (8.4-10.2); Carbon Dioxide 31 mmol/L (22-30); Chloride 89 mmol/L (98-107); Estimated Creatinine Clearance 28 ml/min; Glucose 107 mg/dl (70-99); Potassium 4.9 mmol/L (3.5-5.1); Sodium 126 mmol/L (135-145); Total Bilirubin 0.8 mg/dl (0.2-1.3); Total Protein 6.7 g/dl (6.3-8.2); eGFR 44.64
[2024-09-12 07:25] VITALS: BP 155/65
[2024-09-12 11:09] VITALS: BP 148/61
[2024-09-12] MEDS: LOW STRENGTH ASPIRIN 81 MG PO (11:27)
[2024-09-12] MEDS: PROCARDIA XL (EXTENDED RELEASE) 30 MG PO (11:27)
[2024-09-12] MEDS: TOPROL XL 25 MG PO ×2 (11:27→20:14)
[2024-09-12] MEDS: APRESOLINE 50 MG PO ×2 (11:28→20:15)
[2024-09-12] MEDS: THERAGRAN 1 TABLET PO (11:28)
--- NOTE | 2024-09-12 11:47 | W.PN.HOSP.TC ---
Today's Communication/Plan
-
cards input
cont FR
Monitor BP
Assessment / Plan
Assessment / Plan
Gen-AAOx3, NAD
HEENT-NC, AT, anicteric, clear oral mm
Neck-supple
CV-reg, no M, +S1/S2
Lungs-CTA bl, on room air
Abd-soft, NT, ND
Ext-no edema
Musculoskeletal-no cyanosis, clubbing, improvement in ankle edema
Skin-warm and dry
Neuro-grossly non-focal
Psych-calm, cooperative
Chronic heart failure preserved EF exacerbation -improving, . Consult cardiology. BNP 5430. Clinically improving, shortness of breath resolved. Although unclear if accurate, weight is down.
Chest x-ray reviewed. Patchy left base opacity noted, clinically doubt pneumonia. Repeat chest x-ray as an outpatient.
can probably transition to po diuretics. await further input.
Chronic hyponatremia -sodium 126? SIADH. Cont with FR.
Chronic normocytic anemia -hemoglobin at baseline. Outpatient follow-up.
Hyperlipidemia -atorvastatin.
Essential hypertension-Cont nifedipine and hydralazine
CKD3a vs. 3b-Cr at 1.2
Full code
Anticipated Discharge: Within 24 hours
Subjective/Interval History
-
Date of Service: September 12, 2024
states feeling alot better
lost weight
on room air
Objective Data
-
Labs:
Laboratory Results
09/12/24
06:16
Sodium 126 L
Potassium 4.9
Chloride 89 L
Carbon Dioxide 31 H
BUN 40 H
Creatinine 1.2 H
Glucose 107 H
Calcium 9.3
Total Bilirubin 0.8
AST 42 H
ALT 42 H
Alkaline Phosphatase 107
Vital Signs:
Vital Signs
Temp Pulse Resp BP Pulse Ox
97.5 F 91 18 148/61 97
09/12/24 11:09 09/12/24 11:27 09/12/24 11:09 09/12/24 11:27 09/12/24 11:09
I&O
09/11/24 09/12/24 09/13/24
06:59 06:59 06:59
Intake Total 840 / 840
Output Total 300 / 300 100 / 100
Balance -300 / -300 740 / 740
--- NOTE | 2024-09-12 12:10 | W.PN.CARDCBS ---
Today's Communication / Plan
-
Switch to oral diuretics
Increase metoprolol and monitor tele
Monitor renal function/Na/K
Echo pending
D/C planning
Impression / Plan
-
Assess:
Acute heart failure with preserved EF
COVID-pneumonia May 2022 with abnormal troponin
Chronic hyponatremia
Hyperkalemia with lisinopril
Hypertension
Paroxysmal atrial tachycardia
History of bradycardia
Hypercholesterolemia
Right bundle branch block
Echo April 2024, EF 71%, mild LVH, mild MR, mild TR with PA pressure 30
Lexiscan nuclear stress test August 13, 2022 with fixed inferior defect and no ischemia. EF 60%
PLan:
HFpEF,improved
- proBNP is elevated at 5430.
- Troponin is normal and EKG reveals normal sinus rhythm with marked ST and T wave abnormalities in the inferolateral leads. EKG is unchanged from previous EKG
- Weight decreased (? accurate 15 lbs per chart; todays weight 110lbs) with IV lasix with improved symptoms. O2 97% RA
- Cr increased from 1 to 1.2; K ok at 4.9
-Switch back to oral torsemide but increase to 10mg daily
-Will repeat echocardiogram to reevaluate LVEF and valves.
-Consider outpatient addition of SGLT-2 inh but hold for now given increased Cr
Chronic hyponatremia
- stable.
-Could consider a dose of Samsca but underlying sodium over past several years has been in the 125-130 range
- Monitor with labs
- Follows with Nephrology
AoCRI
-s/p IV lasix
-Monitor and switch to oral lasix
PAT
-Will increase metoprolol succinte 25 mg BID.
-She has had bradycardia not seen at present; consider OP monitor
HTN0 uncontrolled
-NO ANAI/ARB/Aldactone with RASTA/ hyperkalemia.
- New nifedipine 30 mg daily started Thursday (switch from Norvas 2/2 pedal edema)
- Continue hydralazine 50 mg twice daily and increased Metoprolol succinate to 5mg BID
Discussed with daughter Thomas
Possible D/C home next 24 hours
Progress Note - Water Mangle Tender
Subjective
Date of Service: September 12, 2024
Seen and examined. Lying supine on RA. No complaints except daughter concerned about no BM for 2 days
Objective
Labs:
09/11/24 05:37
09/12/24 06:16
Labs
Hgb 9.6 g/dL (12.0-16.0) L 09/11/24 05:37
Hct 27.8 % (37.0-47.0) L 09/11/24 05:37
Plt Count 216 10^3/uL (130-400) 09/11/24 05:37
Sodium 126 mmol/L (135-145) L 09/12/24 06:16
Potassium 4.9 mmol/L (3.5-5.1) 09/12/24 06:16
BUN 40 mg/dl (7-17) H 09/12/24 06:16
Creatinine 1.2 mg/dL (0.6-1.0) H 09/12/24 06:16
Glucose 107 mg/dl (70-99) H 09/12/24 06:16
Troponins
09/10/24
14:51
Troponin I < 0.012
Vital Signs and I&O:
Vital Signs
Temp Pulse Resp BP Pulse Ox
97.5 F 91 18 148/61 97
09/12/24 11:09 09/12/24 11:27 09/12/24 11:09 09/12/24 11:27 09/12/24 11:09
Vital Signs
Temp Pulse Resp BP Pulse Ox
97.5 F 91 18 148/61 97
09/12/24 11:09 09/12/24 11:27 09/12/24 11:09 09/12/24 11:27 09/12/24 11:09
Intake & Output
09/10/24 09/11/24 09/12/24 09/13/24
06:59 06:59 06:59 06:59
Intake Total 840 / 840
Output Total 300 / 300 100 / 100
Balance -300 / -300 740 / 740
Physical Exam
Physical Exam
General: No acute distress, AAOX3
Heart: Regular, positive S1/S2, No murmur
Lungs: bronchovesicular BS, + rhonchi
Abd: Positive BS, NT/ND, neg rebound/rigidity/guarding
Ext: resolved edema tops of feet.
[2024-09-12] MEDS: LASIX IV (12:13)
[2024-09-12 15:38] VITALS: BP 110/58
[2024-09-12] MEDS: SENOKOT-S 1 TABLET PO ×2 (16:39→20:15)
[2024-09-12] MEDS: MIRALAX 17 GRAMS PO (16:39)
[2024-09-12] MEDS: LIPITOR 40 MG PO (16:39)
[2024-09-12 19:55] VITALS: BP 141/66
[2024-09-12] MEDS: DULCOLAX 10 MG PO (21:21)
[2024-09-12] MEDS: DUONEB 3 ML INH (21:58)
[2024-09-12 23:06] VITALS: BP 126/58
[2024-09-13 03:04] VITALS: BP 133/55
[2024-09-13 06:00] VITALS: BMI 20.3
[2024-09-13 07:30] VITALS: BP 133/56
[2024-09-13 07:57] LABS: NT-proBNP 11500 pg/ml
[2024-09-13 08:18] LABS: ALT (SGPT) 35 U/L (0-35); AST (SGOT) 35 U/L (14-36); Albumin 3.3 g/dl (3.5-5.0); Alkaline Phosphatase 86 U/L (38-126); Blood Urea Nitrogen 54 mg/dl (7-17); Calcium 8.6 mg/dl (8.4-10.2); Carbon Dioxide 28 mmol/L (22-30); Chloride 90 mmol/L (98-107); Estimated Creatinine Clearance 24 ml/min; Glucose 101 mg/dl (70-99); Magnesium 2.6 mg/dl (1.6-2.3); Potassium 4.4 mmol/L (3.5-5.1); Sodium 125 mmol/L (135-145); Total Bilirubin 0.7 mg/dl (0.2-1.3)
[2024-09-13] MEDS: PROCARDIA XL (EXTENDED RELEASE) 30 MG PO (09:32)
[2024-09-13] MEDS: APRESOLINE 50 MG PO ×2 (09:32→19:40)
[2024-09-13] MEDS: THERAGRAN 1 TABLET PO (09:33)
[2024-09-13] MEDS: LOW STRENGTH ASPIRIN 81 MG PO (09:33)
[2024-09-13] MEDS: MIRALAX 17 GRAMS PO (09:33)
[2024-09-13] MEDS: TOPROL XL 25 MG PO ×2 (09:35→19:41)
[2024-09-13] MEDS: SENOKOT-S 1 TABLET PO ×2 (09:35→19:40)
[2024-09-13 11:17] VITALS: BP 133/55
--- NOTE | 2024-09-13 11:46 | W.PN.HOSP.TC ---
Today's Communication/Plan
-
bowel regimen
trend bmp
nephro input
cont with FR
Assessment / Plan
Assessment / Plan
Gen-AAOx3, NAD
HEENT-NC, AT, anicteric, clear oral mm
Neck-supple
CV-reg, no M, +S1/S2
Lungs-CTA bl, on room air
Abd-soft, NT, ND
Ext-no edema
Musculoskeletal-no cyanosis, clubbing, improvement in ankle edema
Skin-warm and dry
Neuro-grossly non-focal
Psych-calm, cooperative
Chronic heart failure preserved EF exacerbation -improving, . Consult cardiology. [place] 5430 to [address]. Clinically improving, shortness of breath resolved. Although unclear if weight is down by so much.
Chest x-ray reviewed. Patchy left base opacity noted, clinically doubt pneumonia. Repeat chest x-ray as an outpatient.
can probably transition to po diuretics-demadex 10mg. Bump in BUN/Cr noted. Await further nephro input
Chronic hyponatremia -sodium 125. FR continues. Will ask nephro for input-?samsca.
Chronic normocytic anemia -hemoglobin at baseline. Outpatient follow-up.
Hyperlipidemia -atorvastatin.
Essential hypertension-Cont nifedipine and hydralazine
Constipation-resolved.
Mild BRANDON on CKD3a vs. 3b-Cr at 1.4
Full code
Anticipated Discharge: Within 24 hours
Subjective/Interval History
-
Date of Service: September 13, 2024
denies sob
had bm earlier today
increase in creatine
Objective Data
-
Labs:
Laboratory Results
09/13/24
06:58
Sodium 125 L
Potassium 4.4
Chloride 90 L
Carbon Dioxide 28
BUN 54 H
Creatinine 1.4 H
Glucose 101 H
Calcium 8.6
Total Bilirubin 0.7
AST 35
ALT 35
Alkaline Phosphatase 86
Vital Signs:
Vital Signs
Temp Pulse Resp BP Pulse Ox
97.3 F 76 16 133/55 96
09/13/24 11:17 09/13/24 11:17 09/13/24 11:17 09/13/24 11:17 09/13/24 11:17
I&O
09/12/24 09/13/24 09/14/24
06:59 06:59 06:59
Intake Total 840 / 840 600 / 600
Output Total 100 / 100
Balance 740 / 740 600 / 600
--- NOTE | 2024-09-13 12:32 | W.PN.CARDCBS ---
Today's Communication / Plan
-
Nephrology evaluation for worsening renal insufficiency and hyponatremia
Might consider Dashawn as remains hypoxic with exertion
Impression / Plan
-
PCP: Dr. Lindsay Machado
Assess:
Acute heart failure with preserved EF
COVID-pneumonia May 2022 with abnormal troponin
Chronic hyponatremia
Hyperkalemia with lisinopril
Hypertension
Paroxysmal atrial tachycardia
History of bradycardia
Hypercholesterolemia
Right bundle branch block
Echocardiogram 09/12/2024: Ejection fraction 60 to 65%, mild to moderate MR, PA systolic 52 mmHg
Echo April 2024, EF 71%, mild LVH, mild MR, mild TR with PA pressure 30
Lexiscan nuclear stress test August 13, 2022 with fixed inferior defect and no ischemia. EF 60%
PLan:
She remains hypoxic per nursing and nephrology has been consulted for hyponatremia and worsening renal insufficiency
? Might need to consider Dashawn
Consider outpatient addition of SGLT-2 inh but hold for now given increased Cr
NO ANAI/ARB/Aldactone with RASTA/ hyperkalemia.
nifedipine 30 mg daily started during admission (switch from Norvas 2/2 pedal edema)
Continue hydralazine 50 mg twice daily and increased Metoprolol succinate to 5mg BID
Progress Note - Baker Operator Automatic
Subjective
Date of Service: September 13, 2024
No complaints. Hypoxic with ambulation per nursing
Objective
Labs:
09/11/24 05:37
09/13/24 06:58
Labs
Hgb 9.6 g/dL (12.0-16.0) L 09/11/24 05:37
Hct 27.8 % (37.0-47.0) L 09/11/24 05:37
Plt Count 216 10^3/uL (130-400) 09/11/24 05:37
Sodium 125 mmol/L (135-145) L 09/13/24 06:58
Potassium 4.4 mmol/L (3.5-5.1) 09/13/24 06:58
BUN 54 mg/dl (7-17) H 09/13/24 06:58
Creatinine 1.4 mg/dL (0.6-1.0) H 09/13/24 06:58
Glucose 101 mg/dl (70-99) H 09/13/24 06:58
Troponins
09/10/24
14:51
Troponin I < 0.012
Vital Signs and I&O:
Vital Signs
Temp Pulse Resp BP Pulse Ox
97.3 F 76 16 133/55 96
09/13/24 11:17 09/13/24 11:17 09/13/24 11:17 09/13/24 11:17 09/13/24 11:17
Vital Signs
Temp Pulse Resp BP Pulse Ox
97.3 F 76 16 133/55 96
09/13/24 11:17 09/13/24 11:17 09/13/24 11:17 09/13/24 11:17 09/13/24 11:17
Intake & Output
09/11/24 09/12/24 09/13/24 09/14/24
06:59 06:59 06:59 06:59
Intake Total 840 / 840 600 / 600
Output Total 300 / 300 100 / 100
Balance -300 / -300 740 / 740 600 / 600
Physical Exam
Physical Exam
General: Well developed, well nourished in NAD.
Neck: Supple, no JVD, HJR, carotids +2 B/L, no bruits bilaterally.
Heart: Non displaced PMI, RRR, no murmurs, No S3, S4, no rubs.
Lungs: Scattered rhonchi
Extremities: No clubbing, cyanosis or edema bilaterally.
Neuro: Grossly nonfocal, awake, alert and oriented x3.
[2024-09-13] MEDS: DEMADEX PO (13:24)
--- NOTE | 2024-09-13 13:36 | CM ---
Chart reviewed. Care ongoing at this time.
Nephro consulted
Plan: Home; no needs
--- NOTE | 2024-09-13 14:15 | W.CON.NEPH ---
Consultation
-
Date/Time Consultation Requested: 09/13/24 0851
Date/Time Consultation Performed: 09/13/24 1530
Requesting Provider: Marky Pollard
Performing Provider: Isaura Barksdale
Reason for Consultation: BRANDON, hyponatremia
Medical History
-
Chief Complaint: SOB
History of Present Illness:
84-year-old female past medical history of hypertension on CCB, hydralazine,metoprolol, diastolic CHF on low dose of Torsemide, CAD on ASA, right bundle branch block, paroxysmal atrial tachycardia, bradycardia, chronic hyponatremia, CKD3b cr
1.2-1.[address] Matos hyperlipidemia, presenting with shortness of breath and weakness on 09/10. She diagnosed with CHF flare and has been receiving diuretics. Her sodium was at 125 since admit with out change despite diuretics. Her cr also
increasing to 1.4 hence nephrology consulted.
She saw Dr Matos on 09/02, 2 months prior pt was started on lisinopril for proteinuria 1.7gm/gm of cr however was discontinued for hyperkalemia, 2weeks ago. Repeat labs still had potassium 5.6 hence she was given Lokelma, She only had 1-2 doses
then started c/o increasing edema. She subsequently saw Dr Mccrary on and Amlodipine changed to Nifedipine for edema. Denies chest pain. Denies cough or fever. Denies abdominal pain or nausea or vomiting or diarrhea. Denies sick
contacts.She still with sob mostly when she on left side and back on 2lit of O2 today. No dysuria. She also has vague c/o left upper abd pain.
Past Medical History
hypertension, diastolic CHF, hypertension, CAD, right bundle branch block, paroxysmal atrial tachycardia, bradycardia, chronic hyponatremia, hyperlipidemia, proteinuria
Social History
Tobacco: Non-Smoker
Alcohol: None
Living: With Family (daughter)
Family History
Family History: Not Pertinent
Allergies / Home Medications
Allergy/AdvReac Type Severity Reaction Status Date / Time
No Known Allergies Allergy Verified 09/10/24 14:19
�Medication �Instructions �Recorded �Confirmed �Type
multivitamin with folic acid 400 1 tab PO DAILY Supplement 04/13/20 09/10/24 History
mcg tablet (Tab-A-Luba)
hydralazine 25 mg tablet 50 mg (2 x 25 mg) PO BID #60 tabs 04/19/20 09/10/24 Rx
metoprolol succinate 25 mg 25 mg PO DAILY #30 tabs 04/19/20 09/10/24 Rx
tablet,extended release 24 hr
aspirin 81 mg chewable tablet 81 mg PO DAILY #30 tabs 06/17/22 09/10/24 Rx
atorvastatin 40 mg tablet 40 mg PO QPM #30 tabs 06/17/22 09/10/24 Rx
calcium carbonate 500 mg PO DAILY Supplement 04/24/24 09/10/24 History
nifedipine 30 mg tablet,extended 30 mg PO DAILY Blood Pressure 09/10/24 09/10/24 History
release 24 hr
omega 0-bbe-rsf-fish oil 1,000 mg 1 cap PO DAILY Supplement 09/10/24 09/10/24 History
(120 mg-180 mg) capsule (Fish Oil)
prednisolone 1 %-moxifloxacin 0.5 1 drp ophthalmic (eye) QID Eye 09/10/24 09/10/24 History
%-bromfenac 0.075 % eye drops susp Condition
sodium zirconium cyclosilicate 5 5 g PO DAILY Supplement 09/10/24 09/10/24 History
gram oral powder packet (Lokelma)
torsemide 5 mg tablet 5 mg PO DAILY Fluid 09/10/24 09/10/24 History
Retention/Swelling
Review of Systems
-
All other systems: Negative unless noted
Physical Exam
Vital Signs
Vital Signs
Temp Pulse Resp BP Pulse Ox
97.3 F 76 16 133/55 96
09/13/24 11:17 09/13/24 11:17 09/13/24 11:17 09/13/24 11:17 09/13/24 13:19
Lab Results
WBC 10.9 10^3/uL (4.8-10.8) H 09/11/24 05:37
RBC 3.05 10^6/uL (4.20-5.40) L 09/11/24 05:37
Hgb 9.6 g/dL (12.0-16.0) L 09/11/24 05:37
Hct 27.8 % (37.0-47.0) L 09/11/24 05:37
Plt Count 216 10^3/uL (130-400) 09/11/24 05:37
Sodium 125 mmol/L (135-145) L 09/13/24 06:58
Potassium 4.4 mmol/L (3.5-5.1) 09/13/24 06:58
Chloride 90 mmol/L (98-107) L 09/13/24 06:58
Carbon Dioxide 28 mmol/L (22-30) 09/13/24 06:58
BUN 54 mg/dl (7-17) H 09/13/24 06:58
Creatinine 1.4 mg/dL (0.6-1.0) H 09/13/24 06:58
eGFR 37.10 09/13/24 06:58
Glucose 101 mg/dl (70-99) H 09/13/24 06:58
Calcium 8.6 mg/dl (8.4-10.2) 09/13/24 06:58
Tqz-U-Lhhdvskgskp Pept 25273 pg/ml 09/13/24 06:58
Albumin 3.3 g/dl (3.5-5.0) L 09/13/24 06:58
Physical Exam
General: Awake, Alert, Oriented, AOx3 and Nontoxic
HEENT: EOMI, Anicteric and Neck Supple
Respiratory: Crackels (left base) and Other (mild tachypena, using neck muscles)
Cardiac: S1/S2 and Regular Rate/Rhythm
Breast: Deferred by me
Abdomen: Soft, Nontender and Nondistended
Musculoskeletal: No Cyanosis and No Edema (trace)
Skin: No Rash, Warm and Dry
Neuro: Nonfocal/Grossly Intact
Psych: Insight/judgement good and Appropriate
Data Reviewed
-
Radiology: Report Reviewed by me, Discussed with Nurse, Discussed with Patient and Discussed with Family
Labs: Labs Reviewed by me, Discussed with Nurse, Discussed with Patient and Discussed with Family
Assessment/Plan
-
IMP:
Acute on chr HFpEF
Chronic hyponatremia
CKD [id number] cr 1.2-1.3
PAT
HTN
Chronic normocytic anemia
Hyperlipidemia
Essential hypertension
Constipation
proteinuria-1.7gm/gm of cr
Plan:
A/w CHF, worsened hyponatremia
wt improving CHF is better iV diuresis
cr is up at 1.4 which is not too far from her baseline, check bladder scan 150cc
likely may have to tolerate higher cr to maintain vol status, urine studies ordered
hyponatremia-from hypervolemia, U na low, U osmo 358
TSH normal, will dose samsca
maintain FR and low salt diet
BP stable
she still with sob despite losing wt and improving edema
BNP is high, check CXR , probably o to resume Torsemide
d/w pt and daughter on phone
d/w nursing
[2024-09-13 15:24] VITALS: BP 127/57
[2024-09-13] MEDS: DUONEB 3 ML INH (15:46)
[2024-09-13] MEDS: LIPITOR 40 MG PO (17:25)
[2024-09-13] MEDS: SAMSCA 7.5 MG PO (18:17)
[2024-09-13] MEDS: DULCOLAX 10 MG PO (19:43)
[2024-09-13 20:03] VITALS: BP 146/58
[2024-09-13 21:22] LABS: Urine Albumin 2+ (Neg - Trace); Urine Bilirubin Negative (Negative); Urine Character Clear (Clear); Urine Color Yellow; Urine Glucose Negative (Negative); Urine Ketone Negative (Negative); Urine Leukocyte 2+ (Negative); Urine Nitrite Negative (Negative); Urine Occult Blood Negative (Negative); Urine Specific Gravity 1.015 (<1.030); Urine Urobilinogen Negative (Neg - 1+)
[2024-09-13 21:32] LABS: Urine Squamous Cell 0-2 /LPF (Few)
[2024-09-13 21:33] LABS: Urine Bacteria Moderate (Negative); Urine Red Blood Cell 0-2 /HPF (0-2)
[2024-09-13 21:54] LABS: Protein/creatinine Ratio 0.7; Urine Protein 54 mg/dl; Urine Sodium < 5 mmol/L (30-90)
[2024-09-13 23:37] VITALS: BP 146/61
[2024-09-14] VITALS (7 sets, daily range): BP systolic 132–151; BP diastolic 43–84; PULSE 76; O2SAT 90; BMI 20.4
[2024-09-14] MEDS: MIRALAX 17 GRAMS PO (08:55)
[2024-09-14] MEDS: APRESOLINE 50 MG PO ×2 (08:56→20:47)
[2024-09-14] MEDS: SENOKOT-S 1 TABLET PO ×2 (08:56→20:47)
[2024-09-14] MEDS: DEMADEX 10 MG PO (08:56)
[2024-09-14] MEDS: PROCARDIA XL (EXTENDED RELEASE) 30 MG PO (08:58)
[2024-09-14] MEDS: TOPROL XL 25 MG PO ×2 (08:59→20:47)
[2024-09-14] MEDS: THERAGRAN 1 TABLET PO (08:59)
[2024-09-14] MEDS: LOW STRENGTH ASPIRIN 81 MG PO (08:59)
[2024-09-14] MEDS: FLUSH (NSS) 1 FLUSH IV (08:59)
[2024-09-14 09:27] LABS: Blood Urea Nitrogen 64 mg/dl (7-17); Calcium 8.9 mg/dl (8.4-10.2); Carbon Dioxide 33 mmol/L (22-30); Chloride 91 mmol/L (98-107); Estimated Creatinine Clearance 25 ml/min; Glucose 100 mg/dl (70-99); Potassium 4.4 mmol/L (3.5-5.1); Sodium 129 mmol/L (135-145); eGFR 40.55
--- NOTE | 2024-09-14 12:46 | W.PN.HOSP.TC ---
Addendum entered and electronically signed by Marky Toribio MD 09/14/24 14:06:
updated daughter and grandson over the phone in details.
Described to them US RESULTS of R sided pleural effusion-family to d/w among themselves about Thoracentesis.
Original Note:
Today's Communication/Plan
-
cont demadex 10mg
US chest
nephro recs
Assessment / Plan
Assessment / Plan
Gen-AAOx3, NAD
HEENT-NC, AT, anicteric, clear oral mm
Neck-supple
CV-reg, no M, +S1/S2
Lungs-CTA bl, on room air
Abd-soft, NT, ND
Ext-no edema
Musculoskeletal-no cyanosis, clubbing, improvement in ankle edema
Skin-warm and dry
Neuro-grossly non-focal
Psych-calm, cooperative
Chronic heart failure preserved EF exacerbation -improving, . Consult cardiology. BNP 5430 to [address]. Clinically improving, shortness of breath resolved. Although unclear if weight is down by so much.
Chest x-ray reviewed. Patchy left base opacity noted, clinically doubt pneumonia.
can probably transition to po diuretics-demadex 10mg. Bump in BUN/Cr noted. Await further nephro input
Check US chest to assess for effusion
Chronic hyponatremia -sodium 125 s/p samsca. Na now at 129. Cont with FR. Appreciate nephro input.
Chronic normocytic anemia -hemoglobin at baseline. Outpatient follow-up.
Hyperlipidemia -atorvastatin.
Essential hypertension-Cont nifedipine and hydralazine
Constipation-resolved.
Mild BRANDON on CKD3a vs. 3b-Cr improved to 1.3
Full code
Anticipated Discharge: Within 24 hours
Subjective/Interval History
-
Date of Service: September 14, 2024
denies chest pain
tolerating diet
no overt sob
s/p samsca
Objective Data
-
Labs:
Laboratory Results
09/14/24
08:24
Sodium 129 L
Potassium 4.4
Chloride 91 L
Carbon Dioxide 33 H
BUN 64 H
Creatinine 1.3 H
Glucose 100 H
Calcium 8.9
Vital Signs:
Vital Signs
Temp Pulse Resp BP Pulse Ox
98.0 F 76 20 141/49 90
09/14/24 11:15 09/14/24 11:15 09/14/24 11:15 09/14/24 11:15 09/14/24 11:15
I&O
09/13/24 09/14/24 09/15/24
06:59 06:59 06:59
Intake Total 600 / 600 840 / 840
Output Total 700 / 700
Balance 600 / 600 140 / 140
--- NOTE | 2024-09-14 13:27 | W.PN.CARDCBS ---
Addendum entered and electronically signed by Jimbo Dai MD 09/14/24 14:14:
I saw and examined the patient.
The High Pressure Boiler Operator's note was reviewed and I agree with the note.
Comment: Briefly, 84-year-old woman with past medical history of heart failure preserved ejection fraction presenting in acute decompensated heart failure
Appears euvolemic today on exam and is no longer requiring supplemental oxygen
Weights have plateaued and patient has been transitioned to oral diuretics
May benefit from MRA or SGLT2 but given fluctuating renal function would hold off for now, consider adding as outpatient
Appreciate nephrology input regarding management of renal insufficiency and hyponatremia, will defer further diuretic dosing to them
We will sign off, outpatient follow-up will be arranged
Please recall as needed
Original Note:
Today's Communication / Plan
-
await chest US, may need thoracentesis
currently on po torsemide, diuresis per nephrology
consider increasing BB given elevated BPs
Impression / Plan
-
PCP: Dr. Lindsay Machado
Primary Renal Dialysis Rn: Dr. Regalado
Assessment:
Acute heart failure with preserved EF
COVID-pneumonia May 2022 with abnormal troponin
Chronic hyponatremia
Hyperkalemia with lisinopril
Hypertension
Paroxysmal atrial tachycardia
History of bradycardia
Hypercholesterolemia
Right bundle branch block
Echocardiogram 09/12/2024: Ejection fraction 60 to 65%, mild to moderate MR, PA systolic 52 mmHg
Echo April 2024, EF 71%, mild LVH, mild MR, mild TR with PA pressure 30
Lexiscan nuclear stress test August 13, 2022 with fixed inferior defect and no ischemia. EF 60%
Plan:
-patient without complaints today
-Unclear if weights on admission accurate. Suspect down closer to 4 pounds from admission
-Nephrology managing diuretics in the setting of BRANDON and hyponatremia. Currently on torsemide 10 mg daily. Creatinine 1.3
-Received Samsca 09/13 and sodium up to 129
-Repeat chest x-ray 09/13 with evidence of small to right sided pleural effusion and proBNP 09/13 was up from admission (5430 --> 17554). For chest ultrasound to evaluate further and may consider for thoracentesis if enough fluid present
-may need to tolerate degree of renal insufficiency to keep patient euvolemic
-EF normal by echocardiogram this admission. Continue beta-farideh (dose increased this admission), hydralazine, nifedipine (switched from Norvasc this admission due to lower extremity edema). Consider uptitration as BPs remain elevated. She is
not a candidate for ANAI/ARB/Aldactone with RASTA and prior hyperkalemia. Could consider addition of SGLT2 inhibitor as an outpatient if creatinine stabilizes
-in SR with PACs and 2 brief episodes of atrial tachycardia on review of tele overnight.
-d/w nursing
-d/w daughter Thomas via telephone for 10:54 and updated. She relayed that she was unhappy that she did not know that patient got a repeat CXR yesterday or chest US today. We discussed that based on results of chest US her mother may be considered for
thoracentesis. She tells me she would like to be notified prior to any additional tests being ordered; this was relayed to nephro and hospitalist via TT. We reviewed results of echo this admission and discussed patient's diastolic CHF. discussed HTN
likely contributing. We discussed we need to be cautious with diuresis and CHF treatment due to patient's renal insufficiency and hyponatremia.
Progress Note - Renal Dialysis Rn
Subjective
Date of Service: September 14, 2024
patient without complaints
Objective
Labs:
09/11/24 05:37
09/14/24 08:24
Labs
Hgb 9.6 g/dL (12.0-16.0) L 09/11/24 05:37
Hct 27.8 % (37.0-47.0) L 09/11/24 05:37
Plt Count 216 10^3/uL (130-400) 09/11/24 05:37
Sodium 129 mmol/L (135-145) L 09/14/24 08:24
Potassium 4.4 mmol/L (3.5-5.1) 09/14/24 08:24
BUN 64 mg/dl (7-17) H 09/14/24 08:24
Creatinine 1.3 mg/dL (0.6-1.0) H 09/14/24 08:24
Glucose 100 mg/dl (70-99) H 09/14/24 08:24
Vital Signs and I&O:
Vital Signs
Temp Pulse Resp BP Pulse Ox
98.0 F 76 20 141/49 90
09/14/24 11:15 09/14/24 11:15 09/14/24 11:15 09/14/24 11:15 09/14/24 11:15
Vital Signs
Temp Pulse Resp BP Pulse Ox
98.0 F 76 20 141/49 90
09/14/24 11:15 09/14/24 11:15 09/14/24 11:15 09/14/24 11:15 09/14/24 11:15
Intake & Output
09/12/24 09/13/24 09/14/24 09/15/24
07:59 07:59 07:59 07:59
Intake Total 840 / 840 600 / 600 840 / 840
Output Total 100 / 100 700 / 700
Balance 740 / 740 600 / 600 140 / 140
Physical Exam
Physical Exam
GEN: No distress, awake, alert
HEENT: supple, anicteric, mmm, eomi
LUNGS: Decreased BS RLB, no wheezes
CV: Reg, S1/S2, no murmur
EXT: No cyanosis, clubbing, edema
NEURO: Gross non-focal
SKIN: Warm, pink, dry. No rash
--- NOTE | 2024-09-14 15:13 | W.PN.NEPH.PH ---
Today's Communication / Plan
-
Torsemide
Assessment/Plan
-
IMP:
Acute on chr HFpEF
Chronic hyponatremia
CKD [id number] cr 1.2-1.3
PAT
HTN
Chronic normocytic anemia
Hyperlipidemia
Essential hypertension
Constipation
proteinuria-1.7gm/gm of cr
Plan:
A/w CHF, worsened hyponatremia
wt improving CHF is better iV diuresis
likely may have to tolerate higher cr to maintain vol status, urine studies ordered
hyponatremia-from hypervolemia, U na low, U osmo 358
maintain FR and low salt diet
Lost 8 kg since admission
Status post [facility] 09/13
Ultrasound the chest no significant pleural effusion
Continue with torsemide
Placed call to daughter, Thomas [phone] , no answer will contact her tomorrow as needed
-
-
Date of Service: September 14, 2024
CC / HPI / ROS
-
Chief Complaint:
Shortness of breath and CHF
History of Present Illness:
Patient with more chronic kidney disease CHF presents with shortness of breath
Review of Systems:
Comfortable sitting in the chair no chest pain or shortness of breath
Labs
-
Labs:
WBC 10.9 10^3/uL (4.8-10.8) H 09/11/24 05:37
RBC 3.05 10^6/uL (4.20-5.40) L 09/11/24 05:37
Hgb 9.6 g/dL (12.0-16.0) L 09/11/24 05:37
Hct 27.8 % (37.0-47.0) L 09/11/24 05:37
Plt Count 216 10^3/uL (130-400) 09/11/24 05:37
Sodium 129 mmol/L (135-145) L 09/14/24 08:24
Potassium 4.4 mmol/L (3.5-5.1) 09/14/24 08:24
Chloride 91 mmol/L (98-107) L 09/14/24 08:24
Carbon Dioxide 33 mmol/L (22-30) H 09/14/24 08:24
BUN 64 mg/dl (7-17) H 09/14/24 08:24
Creatinine 1.3 mg/dL (0.6-1.0) H 09/14/24 08:24
eGFR 40.55 09/14/24 08:24
Glucose 100 mg/dl (70-99) H 09/14/24 08:24
Calcium 8.9 mg/dl (8.4-10.2) 09/14/24 08:24
Mym-N-Zccimmyxtfk Pept 76266 pg/ml 09/13/24 06:58
Albumin 3.3 g/dl (3.5-5.0) L 09/13/24 06:58
Physical Exam
-
Vital Signs:
Vital Signs
Temp Pulse Resp BP Pulse Ox
98.0 F 76 20 141/49 90
09/14/24 11:15 09/14/24 11:15 09/14/24 11:15 09/14/24 11:15 09/14/24 11:15
Respiratory:: Bilateral: Coarse
Lung Excursion:: Normal
Abdomen:: Soft
Bowel Sounds:: Decreased
Extremity Edema:: +1: Bilateral:
Other Findings::
COVID isolation
--- NOTE | 2024-09-14 16:20 | PTCARENOTE ---
Pt AA, Ox3, responds slowly to name; slight language barrier; understand Zambian. HUDSON; OOB to chair/BR with assist x1/walker, polina well. No c/o weakness/dizziness. VSS. Telemetry:NSR. On room air- pulse ox 92 %; pt with (+) slight HOYOS; denies
SOB. Abd soft, polina PO well, re-inforced 1200 ml fluid restriction. Resting in bed at present. Will continue to monitor.
[2024-09-14] MEDS: LIPITOR 40 MG PO (17:30)
[2024-09-15 03:23] VITALS: BP 124/65
[2024-09-15 05:37] VITALS: BMI 20.4
[2024-09-15 07:44] LABS: Blood Urea Nitrogen 68 mg/dl (7-17); Calcium 8.6 mg/dl (8.4-10.2); Carbon Dioxide 32 mmol/L (22-30); Chloride 93 mmol/L (98-107); Estimated Creatinine Clearance 28 ml/min; Glucose 103 mg/dl (70-99); Potassium 4.8 mmol/L (3.5-5.1); Sodium 131 mmol/L (135-145); eGFR 44.64
[2024-09-15 08:01] VITALS: BP 157/56
[2024-09-15] MEDS: MIRALAX 17 GRAMS PO (08:49)
[2024-09-15] MEDS: DEMADEX 10 MG PO (08:50)
[2024-09-15] MEDS: APRESOLINE 50 MG PO ×2 (08:51→20:17)
[2024-09-15] MEDS: SENOKOT-S 1 TABLET PO (08:51)
[2024-09-15] MEDS: LOW STRENGTH ASPIRIN 81 MG PO (08:51)
[2024-09-15] MEDS: PROCARDIA XL (EXTENDED RELEASE) 30 MG PO (08:51)
[2024-09-15] MEDS: THERAGRAN 1 TABLET PO (08:51)
[2024-09-15] MEDS: TOPROL XL 25 MG PO ×2 (08:51→20:17)
--- NOTE | 2024-09-15 09:52 | W.PN.HOSP.TC ---
Addendum entered and electronically signed by Marky Toribio MD 09/15/24 14:42:
This am, Daughter was mentioning about transfer [facility]. Currently, pt here with heart failure, mild hyponatremia and new finding of pleural effusion likely due to heart failure which can be managed here and currently no acute
reason for transfer. Daughter to look into options and look into accepting physician if family wants. Call back again in the afternoon and discuss further. Went straight to voicemail. Left voicemail for call back if family would like to discuss
further. Will wait to hear back from family.
Original Note:
Today's Communication/Plan
-
await nephro input
IV lasix
wean o2 as tolerated
Assessment / Plan
Assessment / Plan
Gen-AAOx3, NAD
HEENT-NC, AT, anicteric, clear oral mm
Neck-supple
CV-reg, no M, +S1/S2
Lungs-dec bs R>>L, oxygen
Abd-soft, NT, ND
Ext-no edema
Musculoskeletal-no cyanosis, clubbing, improvement in ankle edema
Skin-warm and dry
Neuro-grossly non-focal
Psych-calm, cooperative
#Acute on chronic HFpEF
Status post IV Lasix.
Patient complains of shortness of breath close/pleural effusion
on 10mg torsemide
consider transition to IV diuresis. Will await further nephrology input.
Discussed with nephrology and recommending 60 mg of IV Lasix.
Strict I's and O's. Daily weights.
#Acute hypoxic respiratory insufficiency likely secondary to right-sided pleural effusion
Discussed with patient and patient daughter about recommendation for thoracentesis. Patient/daughter would like to avoid procedure if needed and recommending management conservatively.
wean o2 as tolerate
Consult IRAD once pt/family agrees for thoracentesis
#Chronic hyponatremia -sodium 125 s/p samsca. Na now at 131 . Cont with FR. Appreciate nephro input.
#Chronic normocytic anemia -hemoglobin at baseline. Outpatient follow-up.
#Hyperlipidemia -atorvastatin.
#Essential hypertension-Cont nifedipine and hydralazine
#Constipation-resolved.
#Mild BRANDON on CKD3a vs. 3b-Cr improved to 1.2
DVT ppx-scds/heparin sc-Pt refusing both. Licensed Mortician patient for compliance to avoid DVT.
Full code
Updated daughter on phone on 09/14 and again on 09/15/2024.
Called again later on 09/15/2024 in the afternoon went straight to [employer].
Discussed with Dr. Mccrary also agreed wtih thoracentesis.
Discussed with nephrology
Anticipated Discharge: 24 - 48 hours
Subjective/Interval History
-
Date of Service: September 15, 2024
Was sob earlier this am and require to be place on oxygen
tolerating diet
worked with PT yesterday
Objective Data
-
Labs:
Laboratory Results
09/15/24
06:53
Sodium 131 L
Potassium 4.8
Chloride 93 L
Carbon Dioxide 32 H
BUN 68 H
Creatinine 1.2 H
Glucose 103 H
Calcium 8.6
Vital Signs:
Vital Signs
Temp Pulse Resp BP Pulse Ox
97.6 F 73 18 157/56 96
09/15/24 08:01 09/15/24 08:01 09/15/24 08:01 09/15/24 08:01 09/15/24 08:01
I&O
09/14/24 09/15/24 09/16/24
06:59 06:59 06:59
Intake Total 840 / 840 1080 / 1080
Output Total 700 / 700 1800 / 1800
Balance 140 / 140 -720 / -720
Data Reviewed
-
Total Time Spent with Patient (in minutes): 55
[2024-09-15 11:27] VITALS: BP 142/92
--- NOTE | 2024-09-15 14:48 | CM ---
Chart reviewed. Care ongoing at this time.
Per hospitalist, patient's daughter is requesting patient to transfer to [place], though there is no medical reason as patient's care is able to be managed.
Hospitalist to further discuss w/ family
Plan: Home vs transfer to [facility]
[2024-09-15] MEDS: LASIX 60 MG IV (15:16)
--- NOTE | 2024-09-15 15:23 | W.PN.NEPH.PH ---
Today's Communication / Plan
-
Intravenous Lasix
Assessment/Plan
-
IMP:
Acute on chr HFpEF
Chronic hyponatremia
CKD [id number] cr 1.2-1.3
PAT
HTN
Chronic normocytic anemia
Hyperlipidemia
Essential hypertension
Constipation
proteinuria-1.7gm/gm of cr
Plan:
A/w CHF, worsened hyponatremia
likely may have to tolerate higher cr to maintain vol status, urine studies ordered
hyponatremia-from hypervolemia, U na low, U osmo 358
maintain FR and low salt diet
Lost 8 kg since admission
Status post [facility] 09/13
Moderate right effusion
Continue with torsemide
Weights are stable but she has some increasing crackles and a pleural effusion. I will give 1 IV dose of Lasix 60 mg today
Placed call to daughter, Thomas [phone] , informed her that I was giving her 60 mg of IV Lasix with some increase in weight since some increased breath sounds.
She does not want a thoracentesis at this time. She is trying to have her mother transfer to [facility]
-
-
Date of Service: September 15, 2024
CC / HPI / ROS
-
Chief Complaint:
Shortness of breath and CHF
History of Present Illness:
Patient with more chronic kidney disease CHF presents with shortness of breath
Review of Systems:
Comfortable sitting in the chair no chest pain or shortness of breath
Labs
-
Labs:
WBC 10.9 10^3/uL (4.8-10.8) H 09/11/24 05:37
RBC 3.05 10^6/uL (4.20-5.40) L 09/11/24 05:37
Hgb 9.6 g/dL (12.0-16.0) L 09/11/24 05:37
Hct 27.8 % (37.0-47.0) L 09/11/24 05:37
Plt Count 216 10^3/uL (130-400) 09/11/24 05:37
Sodium 131 mmol/L (135-145) L 09/15/24 06:53
Potassium 4.8 mmol/L (3.5-5.1) 09/15/24 06:53
Chloride 93 mmol/L (98-107) L 09/15/24 06:53
Carbon Dioxide 32 mmol/L (22-30) H 09/15/24 06:53
BUN 68 mg/dl (7-17) H 09/15/24 06:53
Creatinine 1.2 mg/dL (0.6-1.0) H 09/15/24 06:53
eGFR 44.64 09/15/24 06:53
Glucose 103 mg/dl (70-99) H 09/15/24 06:53
Calcium 8.6 mg/dl (8.4-10.2) 09/15/24 06:53
Bvy-K-Vzndmyhkend Pept 82002 pg/ml 09/13/24 06:58
Albumin 3.3 g/dl (3.5-5.0) L 09/13/24 06:58
Physical Exam
-
Vital Signs:
Vital Signs
Temp Pulse Resp BP Pulse Ox
97.7 F 64 20 142/92 100
09/15/24 11:27 09/15/24 11:27 09/15/24 11:27 09/15/24 11:27 09/15/24 11:27
Respiratory:: Bilateral: Coarse and Bilateral: Rales
Lung Excursion:: Normal
Abdomen:: Soft
Bowel Sounds:: Decreased
Extremity Edema:: None: Bilateral:
[2024-09-15 15:38] VITALS: BP 119/49
[2024-09-15] MEDS: LIPITOR 40 MG PO (17:43)
[2024-09-15 20:15] VITALS: BP 156/59
[2024-09-15] MEDS: SENOKOT-S PO (20:18)
[2024-09-15 23:31] VITALS: BP 140/54
[2024-09-16] VITALS (7 sets, daily range): BP systolic 132–157; BP diastolic 47–62; PULSE 66; O2SAT 92; BMI 20.4
[2024-09-16] MEDS: APRESOLINE 50 MG PO ×2 (08:10→20:33)
[2024-09-16] MEDS: PROCARDIA XL (EXTENDED RELEASE) 30 MG PO (08:10)
[2024-09-16] MEDS: DEMADEX 10 MG PO (08:14)
[2024-09-16] MEDS: THERAGRAN 1 TABLET PO (08:14)
[2024-09-16] MEDS: LOW STRENGTH ASPIRIN 81 MG PO (08:14)
[2024-09-16] MEDS: TOPROL XL 25 MG PO ×2 (08:14→20:34)
[2024-09-16] MEDS: SENOKOT-S PO (08:14)
[2024-09-16] MEDS: MIRALAX PO (08:15)
--- NOTE | 2024-09-16 08:18 | PTCARENOTE ---
Used language line to assist w/ assessment and administering medications. Questions answered.
[2024-09-16 09:11] LABS: Blood Urea Nitrogen 64 mg/dl (7-17); Calcium 8.6 mg/dl (8.4-10.2); Carbon Dioxide 37 mmol/L (22-30); Chloride 94 mmol/L (98-107); Estimated Creatinine Clearance 28 ml/min; Glucose 99 mg/dl (70-99); Potassium 4.4 mmol/L (3.5-5.1); Sodium 135 mmol/L (135-145); eGFR 44.64
--- NOTE | 2024-09-16 12:23 | W.PN.HOSP.TC ---
Today's Communication/Plan
-
po diuretics
Elevate LE
trend bmp
start dispo
Assessment / Plan
Assessment / Plan
Gen-AAOx3, NAD
HEENT-NC, AT, anicteric, clear oral mm
Neck-supple
CV-reg, no M, +S1/S2
Lungs-dec bs R>>L, oxygen
Abd-soft, NT, ND
Ext-no edema
Musculoskeletal-no cyanosis, clubbing, Ankle edema
Skin-warm and dry
Neuro-grossly non-focal
Psych-calm, cooperative
#Acute on chronic HFpEF
Status post IV Lasix.
Plan to continue on 10mg torsemide for now and observe
s/p 60mg IV lasix on 09/15.
Strict I's and O's. Daily weights.
#Acute hypoxic respiratory insufficiency likely secondary to right-sided pleural effusion
Discussed with patient and patient daughter about recommendation for thoracentesis. Patient/daughter would like to avoid procedure if needed and recommending management conservatively.
wean o2 as tolerate
Consult IRAD once pt/family agrees for thoracentesis
resolved on room air.
#Chronic hyponatremia -sodium 125 s/p samsca. Na now at 135 . Cont with FR. Appreciate nephro input.
#Chronic normocytic anemia -hemoglobin at baseline. Outpatient follow-up.
#Hyperlipidemia -atorvastatin.
#Essential hypertension-Cont nifedipine and hydralazine
#Constipation-resolved.
#Mild BRANDON on CKD3a vs. 3b-Cr improved to 1.2
DVT ppx-scds/heparin sc-Pt refusing both. Vp Clinical patient for compliance to avoid DVT.
Full code
PT eval-home vn
update dtr over the phone in details
Dispo-home VN. Hopefully in next 24h
Anticipated Discharge: Within 24 hours
Subjective/Interval History
-
Date of Service: September 16, 2024
sitting in chair
on room air
states passed increasing amount of urine yesterday after lasix
denies sob currently
Objective Data
-
Labs:
Laboratory Results
09/16/24
07:32
Sodium 135
Potassium 4.4
Chloride 94 L
Carbon Dioxide 37 H
BUN 64 H
Creatinine 1.2 H
Glucose 99
Calcium 8.6
Vital Signs:
Vital Signs
Temp Pulse Resp BP Pulse Ox
97.7 F 66 20 137/57 90
09/16/24 11:20 09/16/24 11:20 09/16/24 11:20 09/16/24 11:20 09/16/24 11:20
I&O
09/15/24 09/16/24 09/17/24
06:59 06:59 06:59
Intake Total 1080 / 1080 240 / 240
Output Total 1800 / 1800 275 / 275
Balance -720 / -720 -35 / -35
Data Reviewed
-
Total Time Spent with Patient (in minutes): 55
--- NOTE | 2024-09-16 13:46 | W.PN.NEPH.PH ---
Today's Communication / Plan
-
Maintain torsemide for now at 10 mg
Follow BMP
Assessment/Plan
-
IMP:
Acute on chr HFpEF
Chronic hyponatremia
CKD [id number] cr 1.2-1.3
PAT
HTN
Chronic normocytic anemia
Hyperlipidemia
Essential hypertension
Constipation
proteinuria-1.7gm/gm of cr
Plan:
A/w CHF, sodium up to 135
likely may have to tolerate higher cr to maintain vol status, urine studies ordered
hyponatremia-from hypervolemia, U na low, U osmo 358
maintain FR and low salt diet
Lost 8 kg since admission
Status post [facility] 09/13
Moderate right effusion
Continue with torsemide 10mg daily
Weights are stable
Follow BMP
Daughter does not want a thoracentesis at this time. She is trying to have her mother transfer to [facility]
-
-
Date of Service: September 16, 2024
CC / HPI / ROS
-
Chief Complaint:
Shortness of breath and CHF
History of Present Illness:
Patient with more chronic kidney disease CHF presents with shortness of breath
Creatinine stable at 1.2
Sodium up to 135 following 60 mg of IV Lasix yesterday
Review of Systems:
Weights stable
Subjectively nonoliguric
Labs
-
Labs:
WBC 10.9 10^3/uL (4.8-10.8) H 09/11/24 05:37
RBC 3.05 10^6/uL (4.20-5.40) L 09/11/24 05:37
Hgb 9.6 g/dL (12.0-16.0) L 09/11/24 05:37
Hct 27.8 % (37.0-47.0) L 09/11/24 05:37
Plt Count 216 10^3/uL (130-400) 09/11/24 05:37
Sodium 135 mmol/L (135-145) 09/16/24 07:32
Potassium 4.4 mmol/L (3.5-5.1) 09/16/24 07:32
Chloride 94 mmol/L (98-107) L 09/16/24 07:32
Carbon Dioxide 37 mmol/L (22-30) H 09/16/24 07:32
BUN 64 mg/dl (7-17) H 09/16/24 07:32
Creatinine 1.2 mg/dL (0.6-1.0) H 09/16/24 07:32
eGFR 44.64 09/16/24 07:32
Glucose 99 mg/dl (70-99) 09/16/24 07:32
Calcium 8.6 mg/dl (8.4-10.2) 09/16/24 07:32
Muw-S-Ljvpkdrkwvc Pept 74610 pg/ml 09/13/24 06:58
Albumin 3.3 g/dl (3.5-5.0) L 09/13/24 06:58
Physical Exam
-
Vital Signs:
Vital Signs
Temp Pulse Resp BP Pulse Ox
97.7 F 66 20 137/57 90
09/16/24 11:20 09/16/24 11:20 09/16/24 11:20 09/16/24 11:20 09/16/24 11:20
Cardiovascular:: Regular rate and rhythm
--- NOTE | 2024-09-16 15:28 | CM ---
Addendum entered by Lin Eddy 09/16/24 16:19:
Daughter just called; transfer request to [facility] and Home Health agemcy options were discussed; informed her that mother was not known to [facility]
Daughter reported that her mother does not have a doctor at [facility]
Pt's Home Health recommendation discussed; daughter is open to home care; CM will follow up when mother is discharged
Addendum entered by Lin Eddy 09/16/24 15:45:
Attempted to speak with patient's daughter via phone; the mail box is full; unable to leave a message
Original Note:
chart reviewed: per Attending, plan is Disposition to home with [facility]
Anticipated Discharge: Within 24 hours
Left a voice mail for daughterThomas, # [phone] to call Accounts Specialist to discuss discharge plan
--- NOTE | 2024-09-16 15:58 | VNURNOTE ---
Home health liaison called daughter Thomas to discuss patient having [facility] services. Daughter states she would like to discuss her mother being transferred to [place] /plan for discharge before committing to a homecare agency. States her mother had a
homecare agency in 2021 and is going to try and find out which agency it was because she would like to have them when the time comes. (Home health liaison checked with [facility] office after phone call and patient has never been with [facility]). manager cardiovascular
aware of situation and has tried to call daughter but voice mail is full. Dr. Toribio made aware daughter would like to discuss plan and is difficult to get a hold of.
[2024-09-16] MEDS: LIPITOR 40 MG PO (17:48)
[2024-09-16] MEDS: SENOKOT-S 1 TABLET PO (20:32)
[2024-09-17 03:55] VITALS: BP 165/58
[2024-09-17 06:00] VITALS: BMI 20.6
[2024-09-17 07:12] LABS: % Basophils 0.1 % (0-2); % Eosinophils 0.5 % (0-6); % Immature Granulocytes 0.4 % (0-0.5); % Lymphocytes 4.7 % (20.5-51.1); % Monocytes 7.2 % (1.7-9.3); % Neutrophils 87.1 % (42.2-75.2); Absolute Eosinophils 0.1 10^3/uL (0-0.7); Absolute Lymphocytes 0.5 10^3/uL (1.2-3.4); Absolute Monocytes 0.7 10^3/uL (0.1-0.6); Absolute Neutrophils 8.3 10^3/uL (1.4-6.5); Hematocrit 28.7 % (37.0-47.0); Hemoglobin 9.4 g/dL (12.0-16.0); Mean Corp Hgb Conc. 32.8 g/dL (33.0-37.0); Mean Corpuscular Volume 94.7 fL (81.0-99.0); Nucleated Red Blood Cells % 0 %; Platelet Count 247 10^3/uL (130-400); Red Blood Cell Count 3.03 10^6/uL (4.20-5.40); Red Cell Dist. Width 11.9 % (11.5-14.5); White Blood Cell Count 9.5 10^3/uL (4.8-10.8)
[2024-09-17 07:29] LABS: Blood Urea Nitrogen 76 mg/dl (7-17); Calcium 8.8 mg/dl (8.4-10.2); Carbon Dioxide 34 mmol/L (22-30); Chloride 93 mmol/L (98-107); Estimated Creatinine Clearance 30 ml/min; Glucose 105 mg/dl (70-99); Potassium 4.8 mmol/L (3.5-5.1); Sodium 136 mmol/L (135-145); eGFR 49.55
[2024-09-17 08:17] VITALS: BP 90/50
[2024-09-17] MEDS: DEMADEX 10 MG PO (09:19)
[2024-09-17] MEDS: APRESOLINE 50 MG PO ×2 (09:19→20:30)
[2024-09-17] MEDS: THERAGRAN 1 TABLET PO (09:20)
[2024-09-17] MEDS: TOPROL XL 25 MG PO ×2 (09:20→20:32)
[2024-09-17] MEDS: LOW STRENGTH ASPIRIN 81 MG PO (09:20)
[2024-09-17] MEDS: MIRALAX 17 GRAMS PO (09:20)
[2024-09-17] MEDS: PROCARDIA XL (EXTENDED RELEASE) 30 MG PO (09:20)
[2024-09-17] MEDS: SENOKOT-S 1 TABLET PO ×2 (09:20→20:31)
[2024-09-17] MEDS: FLUSH (NSS) 1 FLUSH IV (09:21)
--- NOTE | 2024-09-17 11:00 | PTCARENOTE ---
Pt's BP this morning 90/50, pt asymptomatic, not pt's trend, BPs have been higher. Rechecked BP, 158/62. Dr. Toribio aware. Administered ordered meds, on recheck 120/56 after meds, will monitor.
[2024-09-17 11:37] VITALS: BP 120/50
--- NOTE | 2024-09-17 11:48 | W.PN.HOSP.TC ---
Today's Communication/Plan
-
CXR 2 view assess effusion
po demadex
Assessment / Plan
Assessment / Plan
Gen-AAOx3, NAD
HEENT-NC, AT, anicteric, clear oral mm
Neck-supple
CV-reg, no M, +S1/S2
Lungs-dec bs R>L.
Abd-soft, NT, ND
Ext-no edema
Musculoskeletal-no cyanosis, clubbing, Ankle edema improved
Skin-warm and dry
Neuro-grossly non-focal
Psych-calm, cooperative
#Acute on chronic HFpEF
Status post IV Lasix.
Plan to continue on 10mg torsemide for now and observe
s/p 60mg IV lasix on 09/15.
Strict I's and O's. Daily weights.
#Acute hypoxic respiratory insufficiency likely secondary to right-sided pleural effusion
Discussed with patient and patient daughter about recommendation for thoracentesis. Patient/daughter would like to avoid procedure if needed and recommending management conservatively.
Consult IRAD once pt/family agrees for thoracentesis
resolved on room air.
Repeat CXR today to assess if any improvement in effusion.
#Chronic hyponatremia -sodium 125 s/p samsca. Na now at 136 . Cont with FR. Appreciate nephro input.
#Chronic normocytic anemia -hemoglobin at baseline. Outpatient follow-up.
#Hyperlipidemia -atorvastatin.
#Essential hypertension-Cont nifedipine and hydralazine BP controlled 120/50
#Constipation-resolved.
#Mild BRANDON on CKD3a vs. 3b-Cr improved to 1.1. BUN continued to uptrend. Monitor.
DVT ppx-scds/heparin sc-Pt refusing both. Mainframe Software Developer patient for compliance to avoid DVT.
Full code
PT eval-home vn
d/w with daughter at bedside in details. Answered all questions to her satisfaction.
Dispo-home VN. Hopefully in next 24h
Anticipated Discharge: 24 - 48 hours
Subjective/Interval History
-
Date of Service: September 17, 2024
feeling tired
tolerating diet
Objective Data
-
Labs:
Laboratory Results
09/17/24
06:50
WBC 9.5
Hgb 9.4 L
Hct 28.7 L
Plt Count 247
Sodium 136
Potassium 4.8
Chloride 93 L
Carbon Dioxide 34 H
BUN 76 H
Creatinine 1.1 H
Glucose 105 H
Calcium 8.8
Vital Signs:
Vital Signs
Temp Pulse Resp BP Pulse Ox
97.9 F 70 18 120/50 96
09/17/24 11:37 09/17/24 11:37 09/17/24 11:37 09/17/24 11:37 09/17/24 11:37
I&O
09/16/24 09/17/24 09/18/24
06:59 06:59 06:59
Intake Total 660 / 660
Output Total 1675 / 1675
Balance -1015 / -1015
Data Reviewed
-
Total Time Spent with Patient (in minutes): 55
--- NOTE | 2024-09-17 13:54 | W.PN.NEPH.PH ---
Today's Communication / Plan
-
Maintain fluid restriction and current dosage of torsemide
Follow-up chest x-ray was ordered by primary RE: effusion
Assessment/Plan
-
IMP:
Acute on chr HFpEF
Chronic hyponatremia
CKD [id number] cr 1.2-1.3
PAT
HTN
Chronic normocytic anemia
Hyperlipidemia
Essential hypertension
Constipation
proteinuria-1.7gm/gm of cr
Plan:
A/w CHF, sodium up to 136
hyponatremia-from hypervolemia, U na low, U osmo 358
maintain FR and low salt diet
Status post [facility] 09/13
Moderate right effusion
Continue with torsemide 10mg daily
For repeat chest x-ray today by primary team re: pleural effusion
Weights are stable
Follow BMP
-
-
Date of Service: September 17, 2024
CC / HPI / ROS
-
Chief Complaint:
Shortness of breath and CHF
History of Present Illness:
Patient with more chronic kidney disease CHF presents with shortness of breath
Creatinine stable at 1.1
Sodium up to 136
Review of Systems:
Weights stable
non oliguric
Subjectively nonoliguric
Labs
-
Labs:
WBC 9.5 10^3/uL (4.8-10.8) 09/17/24 06:50
RBC 3.03 10^6/uL (4.20-5.40) L 09/17/24 06:50
Hgb 9.4 g/dL (12.0-16.0) L 09/17/24 06:50
Hct 28.7 % (37.0-47.0) L 09/17/24 06:50
Plt Count 247 10^3/uL (130-400) 09/17/24 06:50
Sodium 136 mmol/L (135-145) 09/17/24 06:50
Potassium 4.8 mmol/L (3.5-5.1) 09/17/24 06:50
Chloride 93 mmol/L (98-107) L 09/17/24 06:50
Carbon Dioxide 34 mmol/L (22-30) H 09/17/24 06:50
BUN 76 mg/dl (7-17) H 09/17/24 06:50
Creatinine 1.1 mg/dL (0.6-1.0) H 09/17/24 06:50
eGFR 49.55 09/17/24 06:50
Glucose 105 mg/dl (70-99) H 09/17/24 06:50
Calcium 8.8 mg/dl (8.4-10.2) 09/17/24 06:50
Ffk-T-Eivzllbvqkw Pept 25069 pg/ml 09/13/24 06:58
Albumin 3.3 g/dl (3.5-5.0) L 09/13/24 06:58
Physical Exam
-
Vital Signs:
Vital Signs
Temp Pulse Resp BP Pulse Ox
97.9 F 70 18 120/50 96
09/17/24 11:37 09/17/24 11:37 09/17/24 11:37 09/17/24 11:37 09/17/24 11:37
Cardiovascular:: Regular rate and rhythm
Respiratory:: Bilateral: Coarse
De Oliveira Catheter: No
[2024-09-17 15:48] VITALS: BP 144/56
[2024-09-17] MEDS: LIPITOR 40 MG PO (17:42)
[2024-09-17 19:29] VITALS: BP 166/68
[2024-09-17 23:59] VITALS: BP 165/64
[2024-09-18] VITALS (8 sets, daily range): BP systolic 100–174; BP diastolic 49–88; BMI 20.3
--- NOTE | 2024-09-18 01:18 | PTCARENOTE ---
Pt states that she feels 'out of breath'. SpO2=89-90% on RA. Breath sounds diminished throughout. Pt placed on 1L O2 NC, SpO2=94-95%. Pt states that it's better. Will continue to monitor the pt's status.
--- NOTE | 2024-09-18 05:48 | PTCARENOTE ---
Repeat IZ=973/64, HR=78. ELECTRONIC ENGINEERING TECHNICIAN made aware. No order given, monitor for now. Will follow.
[2024-09-18 08:06] LABS: Blood Urea Nitrogen 65 mg/dl (7-17); Calcium 8.8 mg/dl (8.4-10.2); Chloride 95 mmol/L (98-107); Estimated Creatinine Clearance 25 ml/min; Glucose 102 mg/dl (70-99); Sodium 140 mmol/L (135-145); eGFR 40.55
[2024-09-18 08:16] LABS: Carbon Dioxide 42 mmol/L (22-30)
[2024-09-18] MEDS: MIRALAX PO (08:40)
[2024-09-18] MEDS: DEMADEX 10 MG PO (08:41)
[2024-09-18] MEDS: APRESOLINE 50 MG PO ×2 (08:41→20:32)
[2024-09-18] MEDS: FLUSH (NSS) 1 FLUSH IV (08:42)
[2024-09-18] MEDS: THERAGRAN 1 TABLET PO (08:42)
[2024-09-18] MEDS: PROCARDIA XL (EXTENDED RELEASE) 30 MG PO (08:42)
[2024-09-18] MEDS: SENOKOT-S 1 TABLET PO ×2 (08:42→20:33)
[2024-09-18] MEDS: LOW STRENGTH ASPIRIN 81 MG PO (08:42)
[2024-09-18] MEDS: TOPROL XL 25 MG PO ×2 (08:42→20:33)
--- NOTE | 2024-09-18 10:31 | W.PN.NEPH.PH ---
Today's Communication / Plan
-
Follow electrolyte
Adjusted fluid restriction up to 48 ounces daily
Assessment/Plan
-
IMP:
Acute on chr HFpEF
Chronic hyponatremia
CKD [id number] cr 1.2-1.3
PAT
HTN
Chronic normocytic anemia
Hyperlipidemia
Essential hypertension
Constipation
proteinuria-1.7gm/gm of cr
Plan:
A/w CHF, sodium up to 140, adjusted fluid restriction from 1200 to 1440 mL/day
Creatinine stable at 1.3
hyponatremia-from hypervolemia, U na low, U osmo 358
maintain FR and low salt diet
Status post [facility] 09/13
Moderate right effusion appears to be loculated on chest x-ray
Continue with torsemide 10mg daily
Weights are down
Follow BMP
-
-
Date of Service: September 18, 2024
CC / HPI / ROS
-
Chief Complaint:
Shortness of breath and CHF
History of Present Illness:
Patient with more chronic kidney disease CHF presents with shortness of breath
Creatinine stable at 1.3
Sodium up to 140
Review of Systems:
Weights stable
non oliguric
Subjectively nonoliguric
Labs
-
Labs:
WBC 9.5 10^3/uL (4.8-10.8) 09/17/24 06:50
RBC 3.03 10^6/uL (4.20-5.40) L 09/17/24 06:50
Hgb 9.4 g/dL (12.0-16.0) L 09/17/24 06:50
Hct 28.7 % (37.0-47.0) L 09/17/24 06:50
Plt Count 247 10^3/uL (130-400) 09/17/24 06:50
Sodium 140 mmol/L (135-145) 09/18/24 06:47
Potassium 5.0 mmol/L (3.5-5.1) 09/18/24 06:47
Chloride 95 mmol/L (98-107) L 09/18/24 06:47
Carbon Dioxide 42 mmol/L (22-30) H 09/18/24 06:47
BUN 65 mg/dl (7-17) H 09/18/24 06:47
Creatinine 1.3 mg/dL (0.6-1.0) H 09/18/24 06:47
eGFR 40.55 09/18/24 06:47
Glucose 102 mg/dl (70-99) H 09/18/24 06:47
Calcium 8.8 mg/dl (8.4-10.2) 09/18/24 06:47
Rbf-O-Rsoljlxjwxx Pept 66597 pg/ml 09/13/24 06:58
Albumin 3.3 g/dl (3.5-5.0) L 09/13/24 06:58
Physical Exam
-
Vital Signs:
Vital Signs
Temp Pulse Resp BP Pulse Ox
98.0 F 82 16 169/63 98
09/18/24 07:00 09/18/24 08:41 09/18/24 07:00 09/18/24 08:41 09/18/24 08:44
Cardiovascular:: Regular rate and rhythm
Respiratory:: Bilateral: Coarse
De Oliveira Catheter: No
--- NOTE | 2024-09-18 10:35 | W.PN.HOSP.TC ---
Today's Communication/Plan
-
IRAD for thora
Pulm c/s
po demadex
Assessment / Plan
Assessment / Plan
Gen-AAOx3, NAD
HEENT-NC, AT, anicteric, clear oral mm
Neck-supple
CV-reg, no M, +S1/S2
Lungs-dec bs R>L.
Abd-soft, NT, ND
Ext-no edema
Musculoskeletal-no cyanosis, clubbing, Ankle edema improved
Skin-warm and dry
Neuro-grossly non-focal
Psych-calm, cooperative
#Acute on chronic HFpEF
Status post IV Lasix.
Plan to continue on 10mg torsemide for now and observe
s/p 60mg IV lasix on 09/15.
Strict I's and O's. Daily weights.
#Acute hypoxic respiratory insufficiency likely secondary to right-sided pleural effusion
Discussed with patient and patient daughter about recommendation for thoracentesis. Patient/daughter would like to avoid procedure if needed and recommending management conservatively.
Consult IRAD once pt/family agrees for thoracentesis
resolved on room air.
Repeat CXR showing progression of pleural effusion
Patient and family FINALLY agreed for thoracentesis
Pulm c/s
IRAD consult. Fluid studies ordered.
#Chronic hyponatremia -sodium 125 s/p samsca. Na now at 140 . Cont with FR 48oz. Appreciate nephro input.
#Chronic normocytic anemia -hemoglobin at baseline. Outpatient follow-up.
#Hyperlipidemia -atorvastatin.
#Essential hypertension-Cont nifedipine and hydralazine BP controlled 120/50
#Constipation-resolved.
#Mild BRANDON on CKD3a vs. 3b-Cr improved to 1.1. BUN continued to uptrend. Monitor.
DVT ppx-scds/heparin sc-Pt refusing both. 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
Full code
PT eval-home vn
d/w with daughter at bedside in details. Answered all questions to her satisfaction.
Dispo-home VN.
Anticipated Discharge: 24 - 48 hours
Subjective/Interval History
-
Date of Service: September 18, 2024
having bm
feeling weak
Objective Data
-
Labs:
Laboratory Results
09/18/24
06:47
Sodium 140
Potassium 5.0
Chloride 95 L
Carbon Dioxide 42 H
BUN 65 H
Creatinine 1.3 H
Glucose 102 H
Calcium 8.8
Vital Signs:
Vital Signs
Temp Pulse Resp BP Pulse Ox
98.0 F 82 16 169/63 98
09/18/24 07:00 09/18/24 08:41 09/18/24 07:00 09/18/24 08:41 09/18/24 08:44
I&O
09/17/24 09/18/24 09/19/24
06:59 06:59 06:59
Intake Total 660 / 660 960 / 960
Output Total 1675 / 1675 1800 / 1800
Balance -1015 / -1015 -840 / -840
Data Reviewed
-
Total Time Spent with Patient (in minutes): 55
--- NOTE | 2024-09-18 15:50 | CON.PUL ---
Addendum entered and electronically signed by Rome Arita MD 09/18/24 20:19:
Total time spent today was 56 minutes for this encounter. Time includes reviewing laboratory test/imaging results, reviewing pertinent medical records, obtaining and reviewing medical history, performing an appropriate exam, ordering medications,
tests and procedures. Time also includes documentation of this encounter, coordinating patient care and communicating with other healthcare professionals. Total time does not include separately billed tests performed on this date of service.
Original Note:
Consultation
Consultation Request
Date/Time Consultation Requested: 09/18/2024 - 1351
Date/Time Consultation Performed: 09/18/2024 - 1440
Requesting Provider: Dr. Toribio
Performing Provider: Dr. Arita
Reason for Consultation: Pleural effusion
Medical History
-
Chief Complaint: Weak/shaky
History of Present Illness:
84-year-old female non-smoker with a past medical history of COVID-19, CKD, chronic HFpEF, history of bradycardia and history of syncopal episodes who presented from home with shakiness and weakness. She also had facial swelling with leg edema and
shortness of breath. She had worsening shortness of breath with orthopnea and thus brought her to the ER. She had admitted to drinking more water prior to arrival with a diet that was somewhat high in salt. She was admitted on 09/10/2024 for an
acute HFpEF exacerbation with initial CXR showing a suspected pneumonia at the left base. Initial WBC was 10.5 with initial proBNP of 5430. She was treated in the ER with 40 mg IV Lasix and then admitted to telemetry for suspected CHF
exacerbation. She had no infectious symptoms and procalcitonin was negative (<0.05), hence no antibiotics were started. Cardiology consulted and she was continued with torsemide which improved her clinically, and also got 40mg IV lasix on
09/10-09/11. Her creatinine slowly worsened and nephrology was consulted. Echo on 09/12/2024 showed preserved biventricular function with LVEF 60-65% with mild as moderate MR, and pulmonary hypertension with PASP 52 mmHg. There was normal LV
diastolic function. She also developed hyponatremia with sodium alec 125 mmol/L - received tolvaptan 7.5 mg on 09/13. Patient started to require supplemental oxygen on 09/13 up to 2 L/min, and had SOB when she laid on her left side. CXR on the
evening of 09/13 showed a large right-sided pleural effusion which was new compared to CXR from 3 days prior. Chest ultrasound performed on 09/14 showed a small pleural effusion on the left and a more moderate-sized effusion on the right with what
appears to be septations on the US images. She did receive 60 mg IV Lasix on 09/15. CXR on 09/17 showed persistent/slightly worsening right-sided pleural effusion with suggested loculation. Patient is pending IR thoracentesis. Pulmonary service
now consulted for additional management/recommendations.
When I saw the pt she was resting in bed in NAD on room air. She initially denies SOB. Also denies cough and denies chest pain. At the end of our conversation she asked me to place her on oxygen because she felt SOB - I put her on 2L/min NC
Of note patient had seen us in the office with Dr. Sow in August 2022. We had seen her in the hospital in May 2022 after she had COVID-19 with acute decompensated heart failure and BRANDON. She was doing very well at that pulmonary office
visit. Prior CTA chest in May 2022 showed scattered small groundglass opacities/tree-in-bud nodules in the right lower/middle lobes. She was told to continue following up with us as needed.
PMHx: History of bradycardia, hypercholesterolemia, RBBB, history of COVID-19, history of paroxysmal atrial tachycardia, history of syncopal episodes, CKD, hyperlipidemia, diastolic heart failure
PSHx:
Past Medical History
Past Medical History: Other (Above as per HPI)
Past Surgical History: Other (Above as per HPI)
Social History
Tobacco: Non-smoker
Alcohol: None
Drug: None
Family History
Family History: Reviewed & Not Pertinent
Allergies / Home Medications
Allergies
Allergy/AdvReac Type Severity Reaction Status Date / Time
No Known Allergies Allergy Verified 09/10/24 14:19
Home Medications
�Medication �Instructions �Recorded �Confirmed �Last Taken �Type
multivitamin with folic acid 400 1 tab PO DAILY Supplement 04/13/20 09/10/24 09/10/24 History
mcg tablet (Tab-A-Luba)
hydralazine 25 mg tablet 50 mg (2 x 25 mg) PO BID #60 tabs 04/19/20 09/10/24 09/10/24 Rx
metoprolol succinate 25 mg 25 mg PO DAILY #30 tabs 04/19/20 09/10/24 09/10/24 Rx
tablet,extended release 24 hr
aspirin 81 mg chewable tablet 81 mg PO DAILY #30 tabs 06/17/22 09/10/24 09/10/24 Rx
atorvastatin 40 mg tablet 40 mg PO QPM #30 tabs 06/17/22 09/10/24 09/09/24 Rx
calcium carbonate 500 mg PO DAILY Supplement 04/24/24 09/10/24 09/10/24 History
nifedipine 30 mg tablet,extended 30 mg PO DAILY Blood Pressure 09/10/24 09/10/24 09/10/24 History
release 24 hr
omega 1-qoc-hwy-fish oil 1,000 mg 1 cap PO DAILY Supplement 09/10/24 09/10/24 09/10/24 History
(120 mg-180 mg) capsule (Fish Oil)
prednisolone 1 %-moxifloxacin 0.5 1 drp ophthalmic (eye) QID Eye 09/10/24 09/10/24 09/10/24 History
%-bromfenac 0.075 % eye drops susp Condition
sodium zirconium cyclosilicate 5 5 g PO DAILY Supplement 09/10/24 09/10/24 09/08/24 History
gram oral powder packet (Lokelma)
torsemide 5 mg tablet 5 mg PO DAILY Fluid 09/10/24 09/10/24 09/10/24 History
Retention/Swelling
Review of Systems
-
History Source: Patient
All other systems: Negative unless noted
Vitals / Labs / Diagnostic Testing
Vital Signs
Temp Pulse Resp BP Pulse Ox
97.8 F 72 18 144/49 100
09/18/24 15:00 09/18/24 15:00 09/18/24 15:00 09/18/24 15:00 09/18/24 15:00
Lab Data
09/17/24 06:50
09/18/24 06:47
Diagnostic Testing:
Physical Exam
-
HEENT: Normocephalic and Anicteric
Cardiovascular: S1/S2 and Peripheral Edema (negative)
Respiratory: Wheeze (negative), Rales (bilateral (R>L)), Rhonchi (negative) and Accessory Resp Muscle Use (negative)
GI: Soft, Non Distended, Non Tender and Normal Bowel Sounds
Neurology: Awake, Alert and Tremors (negative)
Skin: Warm and Dry
General: Respiratory Distress (negative), Comfortable, Chills (negative) and Sweats (negative)
Assessment
-
Assessment: 84-year-old female non-smoker with a past medical history of COVID-19, CKD, chronic HFpEF, history of bradycardia and history of syncopal episodes who presented from home with shakiness and weakness. She also had facial swelling with
leg edema and shortness of breath. She had worsening shortness of breath with orthopnea and thus brought her to the ER. She had admitted to drinking more water prior to arrival with a diet that was somewhat high in salt. She was admitted on
09/10/2024 for an acute HFpEF exacerbation with initial CXR showing a suspected pneumonia at the left base. Initial WBC was 10.5 with initial proBNP of 5430. She was treated in the ER with 40 mg IV Lasix and then admitted to telemetry for suspected
CHF exacerbation. She had no infectious symptoms and procalcitonin was negative (<0.05), hence no antibiotics were started. Cardiology consulted and she was continued with torsemide which improved her clinically, and also got 40mg IV lasix on
09/10-09/11. Her creatinine slowly worsened and nephrology was consulted. Echo on 09/12/2024 showed preserved biventricular function with LVEF 60-65% with mild as moderate MR, and pulmonary hypertension with PASP 52 mmHg. There was normal LV
diastolic function. She also developed hyponatremia with sodium alec 125 mmol/L - received tolvaptan 7.5 mg on 09/13. Patient started to require supplemental oxygen on 09/13 up to 2 L/min, and had SOB when she laid on her left side. CXR on the
evening of 09/13 showed a large right-sided pleural effusion which was new compared to CXR from 3 days prior. Chest ultrasound performed on 09/14 showed a small pleural effusion on the left and a more moderate-sized effusion on the right with what
appears to be septations on the US images. She did receive 60 mg IV Lasix on 09/15. CXR on 09/17 showed persistent/slightly worsening right-sided pleural effusion with suggested loculation. Patient is pending IR thoracentesis. Pulmonary service
now consulted for additional management/recommendations.
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
Impression:
#Bilateral pleural effusions with suspected right sided loculated effusion - right-sided effusion is suspicious for a pneumonia with parapneumonic effusion
#Acute HFpEF exacerbation
#Acute respiratory failure with hypoxia due to above
#BRANDON on CKD
#History of COVID-19 with acute decompensated heart failure with bronchiolitis seen in the RML + lower lobes in May 2022
#RBBB
#History of bradycardia
Plan:
- She initially was admitted for a CHF exacerbation and was diuresed, which was met with hyponatremia and BRANDON. Her creatinine is now stable, sodium is improved s/p tolvaptan on 09/13, but right-sided pleural effusion is persisting with suspected
loculations. She does have a small left-sided pleural effusion
- Although WBC count is normal on 09/17/2024, it is possible that this right-sided effusion is parapneumonic from a right lower lobe aspiration pneumonia
- She is pending a right-sided thoracentesis which should be sent for the usual studies including glucose, pH, LDH, protein, albumin, cell count with differential, bacterial/AFB/fungus cultures and cytopathology
- After thoracentesis is performed, would empirically start antibiotics while fluid cultures/studies are pending; obtain a set of blood cultures tomorrow morning as well; obtain sputum culture if she can produce a decent sample
- If pt spikes a fever prior to thora, then would start Abx sooner
- If thoracentesis reveals purulent fluid then she will need a chest tube to fully drain empyema
- If thoracentesis not performed by tomorrow (09/19) then would empirically start Abx so as not to delay treatment
- Check MRSA swab, and check urine antigens for Legionella + strep pneumonia
- Given her BRANDON with elevated creatinine, low utility in re-checking procalcitonin at this point
- Recommend obtaining a CT chest after thoracentesis is performed to see if there is any evidence of pneumonia that could be contributing to this fluid buildup
- She has been afebrile with normal white count since admission with exception of 10.9 on 09/11/2024; procalcitonin was negative on 09/10
- Continue to trend WBC and monitor for fevers
- Would check a SCALP SPECIALIST evaluation to assess for aspiration
- Maintain SpO2 >90-94% with supplemental O2 as needed
- Continue aspiration precautions
- prn nebulized bronchodilators - not currently bronchospastic
- Defer continued diuresis to cardiology team
- Continue to trend serum creatinine + serum sodium
- Nephrology also following � recs appreciated
- Incentive spirometer encouraged q1hr while awake
- Replete electrolytes with K>4, Mg>2
- Trend H/H and transfuse if needed to keep Hb>7g/dL; keep plt>20k, unless there is concern for bleeding then keep plt>50k
- Maintain euglycemia with goal BG >100 and <180
- DVT ppx: HSQ
I did call the patient's daughter, Thomas, and spoke with her and the patient's grandson, Cruz, on the call together, and answered all their questions.
Pulmonary service will continue to follow along. Outpatient office follow-up will also be arranged. She will need repeat imaging in 4-6 weeks to assess for resolution vs persistence of this R-sided effusion and suspected PNA.
Data:
CXR 09/17/2024:
Progressed findings suggesting a loculated moderate right pleural effusion.
Moderate opacification of the right lower lung field concerning for right lower lobe pneumonia. Stable
Cardiomegaly. Stable
[2024-09-18] MEDS: LIPITOR 40 MG PO (18:12)
[2024-09-19] VITALS (8 sets, daily range): BP systolic 63–158; BP diastolic 34–80; BMI 20.4
[2024-09-19 08:27] LABS: Blood Urea Nitrogen 71 mg/dl (7-17); Calcium 8.7 mg/dl (8.4-10.2); Chloride 96 mmol/L (98-107); Estimated Creatinine Clearance 28 ml/min; Glucose 97 mg/dl (70-99); LDH 158 U/L (120-246); Potassium 4.7 mmol/L (3.5-5.1); Sodium 138 mmol/L (135-145); Total Protein 5.2 g/dl (6.3-8.2); eGFR 44.64
[2024-09-19 08:31] LABS: % Basophils 0.2 % (0-2); % Eosinophils 1.2 % (0-6); % Lymphocytes 7.8 % (20.5-51.1); % Monocytes 8.5 % (1.7-9.3); % Neutrophils 81.3 % (42.2-75.2); Absolute Eosinophils 0.1 10^3/uL (0-0.7); Absolute Immature Granulocytes 0.1 10^3/uL (0-0.05); Absolute Lymphocytes 0.8 10^3/uL (1.2-3.4); Absolute Monocytes 0.8 10^3/uL (0.1-0.6); Absolute Neutrophils 7.9 10^3/uL (1.4-6.5); Hemoglobin 7.5 g/dL (12.0-16.0); Mean Corp Hgb Conc. 32.6 g/dL (33.0-37.0); Mean Corpuscular Hgb 31.5 pg (27.0-31.0); Mean Corpuscular Volume 96.6 fL (81.0-99.0); Mean Platelet Volume 11.2 fL (7.4-10.4); Nucleated Red Blood Cells % 0 %; Platelet Count 244 10^3/uL (130-400); Red Blood Cell Count 2.38 10^6/uL (4.20-5.40); Red Cell Dist. Width 12.3 % (11.5-14.5); White Blood Cell Count 9.7 10^3/uL (4.8-10.8)
[2024-09-19 08:46] LABS: Carbon Dioxide 35 mmol/L (22-30)
[2024-09-19] MEDS: PROCARDIA XL (EXTENDED RELEASE) 30 MG PO (09:26)
[2024-09-19] MEDS: MIRALAX 17 GRAMS PO (09:26)
[2024-09-19] MEDS: DEMADEX 10 MG PO (09:27)
[2024-09-19] MEDS: THERAGRAN 1 TABLET PO (09:27)
[2024-09-19] MEDS: APRESOLINE 50 MG PO ×2 (09:27→20:39)
[2024-09-19] MEDS: LOW STRENGTH ASPIRIN 81 MG PO (09:27)
[2024-09-19] MEDS: TOPROL XL 25 MG PO ×2 (09:27→20:40)
[2024-09-19] MEDS: SENOKOT-S 1 TABLET PO ×2 (09:27→20:40)
--- NOTE | 2024-09-19 13:06 | W.PN.HOSP.TC ---
Today's Communication/Plan
-
Thoracentesis to be done this afternoon
Start IV Zosyn after thoracentesis (time for 6 PM)
Obtain CT chest without contrast after thoracentesis
Follow-up fluid studies
Assessment / Plan
Assessment / Plan
#Acute hypoxemic respiratory insufficiency
#Right-sided pleural effusion
#Acute on chronic HFpEF
-Has required low levels of O2 here; concern for parapneumonic effusion versus empyema
-Status post course of IV Lasix for decompensated HFpEF; now on torsemide 10 mg daily, no GDMT
-Had chest x-ray performed 09/17 that showed moderate loculated right pleural effusion, possible CAP underlying
-MRSA screen pending; blood culture NGTD; urine Legionella and streptococcal antigens negative
-IR consulted for diagnostic and therapeutic thoracentesis, to be performed later in day 09/19
-Pulmonology following; recommending empiric antibiotics and performing CT chest after thoracentesis
-As of this morning requiring 1 L of O2 with SpO2 98%
Plan
-Start IV Zosyn after thoracentesis per pulm recommendations (first dose 6 PM)
-Order CT chest without contrast to be performed morning of 09/20
-Follow-up fluid studies for lights criteria, parapneumonic effusion criteria
-Plan for chest tube with gross purulence/empyema found
-Aspiration precautions, as needed nebs, and AUDIO VIDEO TECH eval
-SpO2 goal > 90%
#Hypervolemic hyponatremia
-Sodium as low as 125 here; associated with decompensated heart failure
-Nephrology following, s/p 1 dose of Samsca with sodium up to 140
-Continue to trend BMP on oral torsemide
#Chronic normocytic anemia
#Drop in hemoglobin concerning for lab abnormality
-Hemoglobin dropped from 9.5-7.5 on morning labs
-Patient and daughter denies any known bleeding, nursing not aware of any bleeding
-Suspect that this was a lab error, will repeat CBC this afternoon
-Plan for type and screen, blood consent, Hemoccult if continuing to worsen
#Dyslipidemia
-No known ASCVD history, remains on statin therapy
#Primary hypertension
-No known history of hypertensive systemic diseases
-Home medications include nifedipine and hydralazine
-Blood pressure well-controlled
#CKD 3
-Creatinine here has been stable in the range of 1-1.2
-Patient appears fairly euvolemic now s/p diuresis
-No chronic acidemia or signs of bone mineral disease
-Continue to monitor BMP
DVT prophylaxis: Patient refusing, SCDs and heparin order
Diet: Cholesterol-lowering
CODE STATUS: Full code
Anticipated Discharge: > 48 hours
Subjective/Interval History
-
Date of Service: September 19, 2024
Seen and examined at the bedside. No acute events reported overnight. AFVSS on 1 L O2
Thoracentesis planned for later this afternoon. Patient denies shortness of breath, fevers, productive cough
Denies any new complaints as of this morning.
Objective Data
-
Labs:
Laboratory Results
09/19/24 09/19/24
07:44 16:00
WBC 9.7 Pending
Hgb 7.5 L D Pending
Hct 23.0 L Pending
Plt Count 244 Pending
Sodium 138
Potassium 4.7
Chloride 96 L
Carbon Dioxide 35 H
BUN 71 H
Creatinine 1.2 H
Glucose 97
Calcium 8.7
Vital Signs:
Vital Signs
Temp Pulse Resp BP Pulse Ox
98.2 F 73 18 121/47 100
09/19/24 11:37 09/19/24 11:37 09/19/24 11:37 09/19/24 11:37 09/19/24 11:37
I&O
09/18/24 09/19/24 09/20/24
06:59 06:59 06:59
Intake Total 960 / 960 1260 / 1260
Output Total 1800 / 1800 2074
Balance -840 / -840 -815 / -815
Review of Systems
-
History Source: Patient
All other systems: Reviewed and negative
Physical Exam
-
General: Well Developed, No Apparent Distress and Appears Chronically Ill
HEENT: Normocephalic, Atraumatic, Moist Mucous Membranes and Oxygen
Respiratory: Non Labored Respirations and Decreased Breath Sounds (Right-sided); Negative Accessory Resp Muscle Use
Cardiac: Regular Rhythm and S1/S2; Negative Murmur, Rub or Gallop
GI: Soft, Nontender, Nondistended and Normal Bowel Sounds
Musculoskeletal: No Clubbing, No Cyanosis and No Edema
Skin: Warm and Dry; Negative Rash or Normal Turgor
Neuro: AO x 3 and Nonfocal/Grossly Intact; Negative Tremors
Psych: Calm
Data Reviewed
-
Labs: Labs Reviewed by me, Discussed with Patient and Discussed with Family
--- NOTE | 2024-09-19 14:21 | CM ---
Chart reviewed. Care ongoing at this time
Thoracentesis this afternoon. Start of IV Zofran following that
Plan: Home w/ VN when stable
--- NOTE | 2024-09-19 14:30 | W.PN.PUL3 ---
Today's Communication / Plan
-
-Await CT post thoracentesis
-Await pleural fluid analysis
-Start Zosyn post thoracentesis
Assessment
-
Assessment: 84-year-old female non-smoker with a past medical history of COVID-19, CKD, chronic HFpEF, history of bradycardia and history of syncopal episodes who presented from home with shakiness and weakness. She also had facial swelling with
leg edema and shortness of breath. She had worsening shortness of breath with orthopnea and thus brought her to the ER. She had admitted to drinking more water prior to arrival with a diet that was somewhat high in salt. She was admitted on
09/10/2024 for an acute HFpEF exacerbation with initial CXR showing a suspected pneumonia at the left base. Initial WBC was 10.5 with initial proBNP of 5430. She was treated in the ER with 40 mg IV Lasix and then admitted to telemetry for suspected
CHF exacerbation. She had no infectious symptoms and procalcitonin was negative (<0.05), hence no antibiotics were started. Cardiology consulted and she was continued with torsemide which improved her clinically, and also got 40mg IV lasix on
09/10-09/11. Her creatinine slowly worsened and nephrology was consulted. Echo on 09/12/2024 showed preserved biventricular function with LVEF 60-65% with mild as moderate MR, and pulmonary hypertension with PASP 52 mmHg. There was normal LV
diastolic function. She also developed hyponatremia with sodium alec 125 mmol/L - received tolvaptan 7.5 mg on 09/13. Patient started to require supplemental oxygen on 09/13 up to 2 L/min, and had SOB when she laid on her left side. CXR on the
evening of 09/13 showed a large right-sided pleural effusion which was new compared to CXR from 3 days prior. Chest ultrasound performed on 09/14 showed a small pleural effusion on the left and a more moderate-sized effusion on the right with what
appears to be septations on the US images. She did receive 60 mg IV Lasix on 09/15. CXR on 09/17 showed persistent/slightly worsening right-sided pleural effusion with suggested loculation. Patient is pending IR thoracentesis. Pulmonary service
now consulted for additional management/recommendations.
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
Impression:
#Right sided, suspect loculated pleural effusion. Initial CXR on 09/10 was without any effusion, first noted on CXR on 09/13.
-Empyema is a concern. Hemothorax in differential with rapid development and drop in Hb noted today. No reported fall or trauma
-IR Guided thoracentesis and fluid analysis, cell count. LDH, Protein, c/s and cytology
-Start antibiotics after tap, and f/u CT Chest post thoracentesis
-Further recommendations after thoracentesis
-Speech therapy evaluation
#Acute HFpEF exacerbation with worsened Pulmonary HTN
-PA pressure up to 52 on recent ECHO compared from 30 in the past. Suspect Group II with CHF exacerbation
-Needs f/u ECHO in 3 months after achieving Euvolemia. If still elevated, will need RHC
-Continue O2 support to avoid hypoia
-Out patient follow up with cardiology
#Acute respiratory failure with hypoxia due to above
-O2 as needed
Pulmonary service will continue to follow along. Outpatient office follow-up will also be arranged. She will need repeat imaging in 4-6 weeks to assess for resolution vs persistence of this R-sided effusion and suspected PNA.
Total time spent on this consultation/encounter _32___ minutes which includes review of history, physical exam, medications, laboratory data, personal review of imaging, extensive review of outpatient records, discussion with care team and
respiratory therapy.
Data:
CXR 09/17/2024:
Progressed findings suggesting a loculated moderate right pleural effusion.
Moderate opacification of the right lower lung field concerning for right lower lobe pneumonia. Stable
Cardiomegaly. Stable
ECHO 08/2024: Normal LV wall thickness. Normal left ventricular chamber size. Normal left
ventricular systolic function. Left ventricular ejection fraction is 60-65% by
visual assessment. Normal diastolic function.
Mitral valve opens normally. Thickened mitral valve leaflets. Mild to moderate
mitral regurgitation.
Tricuspid valve opens normally. Mild tricuspid regurgitation. Estimated
pulmonary artery pressure of 52 mmHg, assuming a right atrial pressure of 3
mmHg.
Since echo April 2024, PA systolic pressure is increased from 30 mmHg to 52
mmHg.
Subjective Data
-
Date of Service:
Date of Service: September 19, 2024
Review of Systems
Genitourinary: Other (negative except as stated in HPI)
Objective Data
Data Reviewed
Vital Signs / I&O / Oxygen:
Vital Signs
Temp Pulse Resp BP Pulse Ox
97.6 F 63 16 116/34 100
09/19/24 14:18 09/19/24 14:18 09/19/24 14:18 09/19/24 14:18 09/19/24 14:18
Intake and Output
09/18/24 09/19/24 09/20/24
06:59 06:59 06:59
Intake Total 960 / 960 1260 / 1260
Output Total 1800 / 1800 2074 / 2074
Balance -840 / -840 -815 / -815
SaO2 100
Nasal Cannula flow liters per 1
minute
Physical Exam
General: Comfortable
HEENT: Normocephalic
Cardiovascular: S1-S2 and Regular Rhythm
Respiratory: Clear, Non-Labored Respirations and Other (Decreased air entry in the right side. )
GI: Soft and Non Distended
Neurology: Awake and Alert
Labs/Micro/Reports
Lab Data
09/19/24 07:44
Microbiology
09/18/24 23:00 Urine Legionella Urinary Antigen - Final
Negative for Legionella pneumophila Serogroup 1 antigen.
A negative result does not rule out the possiblity of
Legionella infection due to other serogroups or species of
Legionella. Clinical correlation is recommended.
09/18/24 23:00 Urine Streptococcus pneumoniae Antigen (M - Final
Negative for Streptococcus pneumoniae antigen.
A negative result does not exclude infection with
Streptococcus pneumoniae. Clinical correlation is
recommended.
[2024-09-19 15:46] LABS: Body Fluid pH 7.49
[2024-09-19 15:52] LABS: Body Fluid WBC 1176 /CUMM
[2024-09-19 15:53] LABS: Body Fluid Mononuclear 95.6 %; Body Fluid Polymorphonuclear 4.4 %
[2024-09-19 15:54] LABS: Body Fluid Second Tech EYM
[2024-09-19 16:05] LABS: Body Fluid Glucose 120 mg/dl; Body Fluid Protein < 2.0 g/dl; Body Fluid Triglycerides < 30 mg/dl
[2024-09-19 16:22] LABS: Body Fluid Amylase < 30 U/L; Body Fluid LDH 144 U/L
--- NOTE | 2024-09-19 16:45 | PTCARENOTE ---
Received patient from [facility] s/p Thoracentesis. AAOx3, ambulated with assistance. Bandaid to right side of back. Call terry in close reach.
--- NOTE | 2024-09-19 17:26 | W.PN.NEPH.PH ---
Today's Communication / Plan
-
follow labs
Assessment/Plan
-
IMP:
Acute on chr HFpEF
Chronic hyponatremia
CKD [id number] cr 1.2-1.3
PAT
HTN
Chronic normocytic anemia
Hyperlipidemia
Essential hypertension
Constipation
proteinuria-1.7gm/gm of cr
Plan:
A/w CHF, sodium up to 138, fluid restriction 1440 mL/day
Creatinine stable at 1.2-baseline
Moderate right effusion s/p thoracentesis 400cc
abx per pulm, ct chest done
Continue with torsemide 10mg daily, wt stable
Follow BMP
d/w pt and daughter at bedside
-
-
Date of Service: September 19, 2024
CC / HPI / ROS
-
Chief Complaint:
Shortness of breath and CHF
History of Present Illness:
Patient with more chronic kidney disease CHF presents with shortness of breath
Creatinine stable at 1.2
Sodium up to 138
s/p thoracentesis 400cc
Review of Systems:
Weights stable
non oliguric
nonoliguric
Labs
-
Labs:
Sodium 138 mmol/L (135-145) 09/19/24 07:44
Potassium 4.7 mmol/L (3.5-5.1) 09/19/24 07:44
Chloride 96 mmol/L (98-107) L 09/19/24 07:44
Carbon Dioxide 35 mmol/L (22-30) H 09/19/24 07:44
BUN 71 mg/dl (7-17) H 09/19/24 07:44
Creatinine 1.2 mg/dL (0.6-1.0) H 09/19/24 07:44
eGFR 44.64 09/19/24 07:44
Glucose 97 mg/dl (70-99) 09/19/24 07:44
Calcium 8.7 mg/dl (8.4-10.2) 09/19/24 07:44
Lch-A-Ydaufqlaspn Pept 96163 pg/ml 09/13/24 06:58
Albumin 3.3 g/dl (3.5-5.0) L 09/13/24 06:58
Physical Exam
-
Vital Signs:
Vital Signs
Temp Pulse Resp BP Pulse Ox
97.5 F 62 16 116/39 98
09/19/24 16:36 09/19/24 16:36 09/19/24 16:36 09/19/24 16:36 09/19/24 16:36
Cardiovascular:: Regular rate and rhythm
Respiratory:: Bilateral: Coarse
Lung Excursion:: Normal
Abdomen:: Nontender and Soft
Extremity Edema:: None: Bilateral:
De Oliveira Catheter: No
[2024-09-19] MEDS: ZOSYN 50 IV (17:33)
[2024-09-19] MEDS: LIPITOR 40 MG PO (17:33)
[2024-09-19 17:48] LABS: Hematocrit 22.3 % (37.0-47.0); Mean Corp Hgb Conc. 31.4 g/dL (33.0-37.0); Mean Corpuscular Hgb 30.8 pg (27.0-31.0); Mean Corpuscular Volume 98.2 fL (81.0-99.0); Platelet Count 229 10^3/uL (130-400); Red Blood Cell Count 2.27 10^6/uL (4.20-5.40); Red Cell Dist. Width 12.2 % (11.5-14.5); White Blood Cell Count 7.4 10^3/uL (4.8-10.8)
--- NOTE | 2024-09-19 18:04 | W.PN.UPDATE ---
Update Note
Progress Note Update
4 PM hemoglobin came back at 7.0, down from 7.5 on a.m. labs which was significant drop from 9.4 on previous labs.
Spoke with nursing and patient still without any signs of active bleeding. Remains asymptomatic concerning signs of anemia.
Will order iron studies, B12, folate, LFTs, LDH, stool heme test and type and screen with tomorrow's labs. If patient develops any signs of bleeding overnight would transfuse 1 unit of packed red blood cells and recheck CBC.
[2024-09-20] VITALS (7 sets, daily range): BP systolic 109–160; BP diastolic 47–80; PULSE 63; O2SAT 98
[2024-09-20] MEDS: ZOSYN 50 IV ×5 (00:22→23:32)
[2024-09-20] MEDS: MIRALAX 17 GRAMS PO (08:25)
[2024-09-20] MEDS: SENOKOT-S 1 TABLET PO (08:30)
[2024-09-20] MEDS: LOW STRENGTH ASPIRIN 81 MG PO (08:30)
[2024-09-20] MEDS: TOPROL XL PO (08:30)
[2024-09-20] MEDS: THERAGRAN 1 TABLET PO (08:30)
[2024-09-20] MEDS: DEMADEX 10 MG PO (08:30)
--- NOTE | 2024-09-20 08:47 | W.PN.PUL3 ---
Today's Communication / Plan
-
-Continue diuresis
-Follow-up on pleural fluid cultures
Assessment
-
Assessment: 84-year-old female non-smoker with a past medical history of COVID-19, CKD, chronic HFpEF, history of bradycardia and history of syncopal episodes who presented from home with shakiness and weakness. She also had facial swelling with
leg edema and shortness of breath. She had worsening shortness of breath with orthopnea and thus brought her to the ER. She had admitted to drinking more water prior to arrival with a diet that was somewhat high in salt. She was admitted on
09/10/2024 for an acute HFpEF exacerbation with initial CXR showing a suspected pneumonia at the left base. Initial WBC was 10.5 with initial proBNP of 5430. She was treated in the ER with 40 mg IV Lasix and then admitted to telemetry for suspected
CHF exacerbation. She had no infectious symptoms and procalcitonin was negative (<0.05), hence no antibiotics were started. Cardiology consulted and she was continued with torsemide which improved her clinically, and also got 40mg IV lasix on
09/10-09/11. Her creatinine slowly worsened and nephrology was consulted. Echo on 09/12/2024 showed preserved biventricular function with LVEF 60-65% with mild as moderate MR, and pulmonary hypertension with PASP 52 mmHg. There was normal LV
diastolic function. She also developed hyponatremia with sodium alec 125 mmol/L - received tolvaptan 7.5 mg on 09/13. Patient started to require supplemental oxygen on 09/13 up to 2 L/min, and had SOB when she laid on her left side. CXR on the
evening of 09/13 showed a large right-sided pleural effusion which was new compared to CXR from 3 days prior. Chest ultrasound performed on 09/14 showed a small pleural effusion on the left and a more moderate-sized effusion on the right with what
appears to be septations on the US images. She did receive 60 mg IV Lasix on 09/15. CXR on 09/17 showed persistent/slightly worsening right-sided pleural effusion with suggested loculation. Patient is pending IR thoracentesis. Pulmonary service
now consulted for additional management/recommendations.
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
Impression:
#Right sided, Pleural effusion. Initial CXR on 09/10 was without any effusion, first noted on CXR on 09/13.
s/p Thoracentesis 09/19, 400 ml sero-sanguinous fluid. Pseudo-exudate with Serum Protein-Pleural protein gradient >3.2. Heart failure appears to be the etiology
-Less likely empyema, await final cultures and cytology
-Continue diuretics
# Multi-focal pneumonia, most pronounced in RLL
-Started on Zosyn, follow up cultures
-Need f/u CT in 6-8 weeks to ensure resolution and normal underlying parenchyma, no h/o smoking
-Will arrange out patient follow up with Pulmonary clinic
-Updated patient's daughter, Thomas, via phone
#Acute HFpEF exacerbation with worsened Pulmonary HTN
-PA pressure up to 52 on recent ECHO compared from 30 in the past. Suspect Group II with CHF exacerbation
-Needs f/u ECHO in 3 months after achieving Euvolemia. If still elevated, will need RHC
-Continue O2 support to avoid hypoxia
-Out patient follow up with cardiology
#Acute respiratory failure with hypoxia due to above
-O2 as needed
Total time spent on this consultation/encounter _38__ minutes which includes review of history, physical exam, medications, laboratory data, personal review of imaging, extensive review of outpatient records, discussion with care team and
respiratory therapy.
Data:
CT Chest 08/2024: Interval improvement within the right-sided pleural effusion with trace residual right-sided pleural effusion. No pneumothorax.
There is bilateral lower lobe bronchial wall thickening with bilateral lower lobe nodular opacities/consolidations which represent atelectasis, however is suspicious for multifocal pneumonia. Additionally there are ground glass opacities within the
right middle and upper lobes which may be infectious/inflammatory. Recommend follow-up to ensure resolution.
Diffuse hypoattenuation of the mediastinal blood pool which can be seen with anemia.
CXR 09/17/2024:
Progressed findings suggesting a loculated moderate right pleural effusion.
Moderate opacification of the right lower lung field concerning for right lower lobe pneumonia. Stable
Cardiomegaly. Stable
ECHO 08/2024: Normal LV wall thickness. Normal left ventricular chamber size. Normal left
ventricular systolic function. Left ventricular ejection fraction is 60-65% by
visual assessment. Normal diastolic function.
Mitral valve opens normally. Thickened mitral valve leaflets. Mild to moderate
mitral regurgitation.
Tricuspid valve opens normally. Mild tricuspid regurgitation. Estimated
pulmonary artery pressure of 52 mmHg, assuming a right atrial pressure of 3
mmHg.
Since echo April 2024, PA systolic pressure is increased from 30 mmHg to 52
mmHg.
Subjective Data
-
Date of Service:
Date of Service: September 20, 2024
Subjective:
Patient comfortably lying in bed in no acute distress.
Review of Systems
Genitourinary: Other (All 14 systems reviewed and negative except as stated above in the history of present illness.)
Objective Data
Data Reviewed
Vital Signs / I&O / Oxygen:
Vital Signs
Temp Pulse Resp BP Pulse Ox
98.0 F 59 18 109/80 95
09/20/24 03:00 09/20/24 08:30 09/20/24 03:00 09/20/24 08:30 09/20/24 03:00
Intake and Output
09/19/24 09/20/24 09/21/24
06:59 06:59 06:59
Intake Total 1260 / 1260 720 / 720
Output Total 2074 / 2074 450 / 450
Balance -815 / -815 270 / 270
SaO2 95
Nasal Cannula flow liters per 2
minute
Physical Exam
General: Comfortable
HEENT: Normocephalic
Cardiovascular: S1-S2 and Regular Rhythm
Respiratory: Clear, Non-Labored Respirations and Other (Decreased air entry in the right side. )
GI: Soft and Non Distended
Neurology: Awake and Alert
Skin: Warm
Labs/Micro/Reports
Microbiology
09/18/24 23:00 Nose MRSA Screen - Final
No Methicillin Resistant Staphylococcus aureus isolated.
09/19/24 07:44 Blood/Venous Blood Culture - Preliminary
No Growth in 24 hours- Final report to follow
09/18/24 23:00 Urine Legionella Urinary Antigen - Final
Negative for Legionella pneumophila Serogroup 1 antigen.
A negative result does not rule out the possiblity of
Legionella infection due to other serogroups or species of
Legionella. Clinical correlation is recommended.
09/18/24 23:00 Urine Streptococcus pneumoniae Antigen (M - Final
Negative for Streptococcus pneumoniae antigen.
A negative result does not exclude infection with
Streptococcus pneumoniae. Clinical correlation is
recommended.
[2024-09-20 08:59] LABS: % Basophils 0.1 % (0-2); % Eosinophils 3.5 % (0-6); % Lymphocytes 6.9 % (20.5-51.1); % Monocytes 6.2 % (1.7-9.3); % Neutrophils 82.3 % (42.2-75.2); Absolute Eosinophils 0.3 10^3/uL (0-0.7); Absolute Immature Granulocytes 0.1 10^3/uL (0-0.05); Absolute Lymphocytes 0.7 10^3/uL (1.2-3.4); Absolute Monocytes 0.6 10^3/uL (0.1-0.6); Absolute Neutrophils 7.9 10^3/uL (1.4-6.5); Hematocrit 22.6 % (37.0-47.0); Hemoglobin 7.1 g/dL (12.0-16.0); Mean Corp Hgb Conc. 31.4 g/dL (33.0-37.0); Mean Corpuscular Volume 98.7 fL (81.0-99.0); Mean Platelet Volume 11.6 fL (7.4-10.4); Nucleated Red Blood Cells % 0 %; Platelet Count 226 10^3/uL (130-400); Red Blood Cell Count 2.29 10^6/uL (4.20-5.40); Red Cell Dist. Width 12.3 % (11.5-14.5); Reticulocyte Count 2.8 % (0.4-2.8); White Blood Cell Count 9.7 10^3/uL (4.8-10.8)
[2024-09-20 09:05] LABS: ALT (SGPT) 23 U/L (0-35); AST (SGOT) 30 U/L (14-36); Alkaline Phosphatase 74 U/L (38-126); Blood Urea Nitrogen 65 mg/dl (7-17); Calcium 8.7 mg/dl (8.4-10.2); Chloride 93 mmol/L (98-107); Direct Bilirubin 0.2 mg/dl (0.0-0.4); Estimated Creatinine Clearance 24 ml/min; Glucose 93 mg/dl (70-99); Iron 46 ug/dl (37-170); Sodium 137 mmol/L (135-145); Total Bilirubin 0.4 mg/dl (0.2-1.3); Total Protein 5.4 g/dl (6.3-8.2)
[2024-09-20 09:14] LABS: Carbon Dioxide 40 mmol/L (22-30); Percent Saturation 16 % (20-50); Total Iron Binding Capacity 273 ug/dl (265-497)
[2024-09-20] MEDS: APRESOLINE PO (09:15)
[2024-09-20] MEDS: PROCARDIA XL (EXTENDED RELEASE) PO (09:30)
[2024-09-20 09:39] LABS: Ferritin 84.3 ng/ml (11.1-264.0)
[2024-09-20 10:10] LABS: Folate > 20.0 ng/ml (2.76-20); Vitamin B12 857 pg/ml (239-931)
--- NOTE | 2024-09-20 10:13 | PTOTSP ---
Dysphagia Evaluation
No signs concerning for oral/pharyngeal dysphagia during clinical bedside swallowing evaluation. Patient denied history of dysphagia. Risk factors for dysphagia include cardiac comorbidities. If concerned for silent aspiration given multifocal
pneumonia, consider video swallow study.
Recommend:
1. Regular, Thin liquids
2. General aspiration and reflux precautions
3. Medications as best tolerated
4. Reconsult via video swallow study as appropriate. Otherwise no further tx warranted at this time
--- NOTE | 2024-09-20 13:37 | W.PN.HOSP.TC ---
Today's Communication/Plan
-
IV Zosyn
Oral torsemide
Follow-up pleural fluid culture
Follow-up heme stool test
Trend CBC
Assessment / Plan
Assessment / Plan
#Acute hypoxemic respiratory insufficiency
#Right-sided transudative pleural effusion
#Acute on chronic HFpEF
-Status post course of IV Lasix for decompensated HFpEF; now on torsemide 10 mg daily, no GDMT
-Had chest x-ray performed 09/17 that showed moderate loculated right pleural effusion
-MRSA screen pending; blood culture NGTD; urine Legionella and streptococcal antigens negative
-Thoracentesis on 09/19 transudative per lights criteria and protein ratios; pH >7.4 low suspicion for empyema or parapneumonic
-Pulmonology following; started IV Zosyn after thoracentesis; repeat CT shows signs of multifocal pneumonia
-As of this morning requiring 1 L of O2 with SpO2 98%
Plan
-Continue IV Zosyn and trend CBC and temperature curve
-Continue oral torsemide 10 mg daily for diuresis
-Follow-up pleural fluid cultures and Gram stain
-Aspiration precautions, as needed nebs
-SpO2 goal > 90%
#Hypervolemic hyponatremia
-Sodium as low as 125 here; associated with decompensated heart failure
-Nephrology following, s/p 1 dose of Samsca with sodium up to 140
-Continue to trend BMP on oral torsemide
#Acute blood loss anemia (?)
#Chronic normocytic anemia
-Hemoglobin dropped from 9.5-7.5-7.0-7.1; no bleeding reported
-iron studies and B vitamins without deficiency; reticulocyte 2.8%; LFTs normal
-Type and screen obtained this morning, hemoglobin stabilized
-Remains asymptomatic concerning symptoms of anemia
-Will continue to trend CBC, monitor for bleeding
-Hemoglobin goal >7 or absence of symptoms
#Dyslipidemia
-No known ASCVD history, remains on statin therapy
#Primary hypertension
-No known history of hypertensive systemic diseases
-Home medications include nifedipine and hydralazine
-Blood pressure well-controlled
#CKD 3
-Creatinine here has been stable in the range of 1-1.2
-Patient appears fairly euvolemic now s/p IV diuresis
-No chronic acidemia or signs of bone mineral disease
-Continue to monitor BMP
DVT prophylaxis: SCDs ordered
Diet: Cholesterol-lowering
CODE STATUS: Full code
Anticipated Discharge: > 48 hours
Subjective/Interval History
-
Date of Service: September 20, 2024
Seen and examined at the bedside. No acute events overnight. AFVSS on 1 L O2 with SpO2 98%
Hemoglobin has stabilized, last for draws 9.5�7.5�7.0�7.1. Patient without complaints of bleeding. Nursing without any observed bleeding events. Iron studies without signs of deficiency
Patient states she feels well today, was seated up in bed. Denies any new complaints
Objective Data
-
Labs:
Laboratory Results
09/20/24
07:48
WBC 9.7
Hgb 7.1 L
Hct 22.6 L
Plt Count 226
Sodium 137
Potassium 5.0
Chloride 93 L
Carbon Dioxide 40 H
BUN 65 H
Creatinine 1.4 H
Glucose 93
Calcium 8.7
Total Bilirubin 0.4
AST 30
ALT 23
Alkaline Phosphatase 74
Vital Signs:
Vital Signs
Temp Pulse Resp BP Pulse Ox
98.1 F 62 18 131/47 98
09/20/24 11:09 09/20/24 11:09 09/20/24 11:09 09/20/24 11:09 09/20/24 11:09
I&O
09/19/24 09/20/24 09/21/24
06:59 06:59 06:59
Intake Total 1260 / 1260 720 / 720
Output Total 2074 450 / 450
Balance -815 / -815 270 / 270
Review of Systems
-
History Source: Patient
All other systems: Reviewed and negative
Physical Exam
-
General: Well Developed, No Apparent Distress and Comfortable
HEENT: Normocephalic, Atraumatic, Moist Mucous Membranes and Anicteric
Respiratory: Rales and Non Labored Respirations; Negative Wheezes or Rhonchi
Cardiac: Regular Rhythm and S1/S2; Negative Murmur, Rub, JVD or Gallop
GI: Soft, Nontender, Nondistended and Normal Bowel Sounds
Musculoskeletal: No Clubbing, No Cyanosis and No Edema
Skin: Warm, Dry and Normal Turgor; Negative Rash
Neuro: AO x 3 and Nonfocal/Grossly Intact; Negative Tremors
Psych: Calm
Data Reviewed
-
Labs: Labs Reviewed by me and Discussed with Patient
--- NOTE | 2024-09-20 14:43 | W.PN.NEPH.PH ---
Today's Communication / Plan
-
diamox
IV fe course
labs in am
Assessment/Plan
-
IMP:
Acute on chr HFpEF
Chronic hyponatremia
CKD [id number] cr 1.2-1.3
PAT
HTN
Chronic normocytic anemia
Hyperlipidemia
Essential hypertension
Constipation
proteinuria-1.7gm/gm of cr
Plan:
A/w CHF, sodium up to 137, fluid restriction 1440 mL/day
Creatinine up at 1.4 but not too far from baseline
Moderate right effusion s/p thoracentesis 400cc 09/19
abx per pulm
met alkalosis-will dose diamox
Continue with torsemide 10mg daily, wt stable
hb decreasing-Fe sat 16-start IV fe, prn transfusion per primary
Follow BMP
d/w pt
-
-
Date of Service: September 20, 2024
CC / HPI / ROS
-
Chief Complaint:
Shortness of breath and CHF
History of Present Illness:
Patient with more chronic kidney disease CHF presents with shortness of breath
Creatinine up at 1.4
Sodium up to 137
s/p thoracentesis 400cc 09/19
Bp stable
hb low 7.1
Review of Systems:
Weights were stable
non oliguric
no cp or sob
feels well
Labs
-
Labs:
WBC 9.7 10^3/uL (4.8-10.8) 09/20/24 07:48
RBC 2.29 10^6/uL (4.20-5.40) L 09/20/24 07:48
Hgb 7.1 g/dL (12.0-16.0) L 09/20/24 07:48
Hct 22.6 % (37.0-47.0) L 09/20/24 07:48
Plt Count 226 10^3/uL (130-400) 09/20/24 07:48
Sodium 137 mmol/L (135-145) 09/20/24 07:48
Potassium 5.0 mmol/L (3.5-5.1) 09/20/24 07:48
Chloride 93 mmol/L (98-107) L 09/20/24 07:48
Carbon Dioxide 40 mmol/L (22-30) H 09/20/24 07:48
BUN 65 mg/dl (7-17) H 09/20/24 07:48
Creatinine 1.4 mg/dL (0.6-1.0) H 09/20/24 07:48
eGFR 37.10 09/20/24 07:48
Glucose 93 mg/dl (70-99) 09/20/24 07:48
Calcium 8.7 mg/dl (8.4-10.2) 09/20/24 07:48
Zkm-H-Iiyskjimdkc Pept 35009 pg/ml 09/13/24 06:58
Albumin 3.0 g/dl (3.5-5.0) L 09/20/24 07:48
Physical Exam
-
Vital Signs:
Vital Signs
Temp Pulse Resp BP Pulse Ox
98.1 F 62 18 131/47 98
09/20/24 11:09 09/20/24 11:09 09/20/24 11:09 09/20/24 11:09 09/20/24 11:09
Cardiovascular:: Regular rate and rhythm
Respiratory:: Bilateral: Coarse
Lung Excursion:: Normal
Abdomen:: Nontender and Soft
Extremity Edema:: None: Bilateral:
De Oliveira Catheter: No
[2024-09-20] MEDS: FERRLECIT 110 MG IV (16:26)
[2024-09-20] MEDS: LIPITOR 40 MG PO (17:21)
[2024-09-20] MEDS: TOPROL XL 25 MG PO (20:55)
[2024-09-20] MEDS: APRESOLINE 50 MG PO (20:56)
[2024-09-20] MEDS: SENOKOT-S PO (20:57)
[2024-09-20] MEDS: DIAMOX 125 MG PO (20:58)
[2024-09-20] MEDS: FLUSH (NSS) 1 FLUSH IV (23:33)
[2024-09-21] VITALS (9 sets, daily range): BP systolic 98–147; BP diastolic 40–68; BMI 20.7
[2024-09-21] MEDS: ZOSYN 50 IV ×3 (05:58→21:02)
[2024-09-21 08:33] LABS: % Basophils 0.1 % (0-2); % Eosinophils 2.4 % (0-6); % Immature Granulocytes 0.5 % (0-0.5); % Lymphocytes 7.9 % (20.5-51.1); % Monocytes 7.1 % (1.7-9.3); Absolute Eosinophils 0.2 10^3/uL (0-0.7); Absolute Immature Granulocytes 0.1 10^3/uL (0-0.05); Absolute Lymphocytes 0.7 10^3/uL (1.2-3.4); Absolute Monocytes 0.7 10^3/uL (0.1-0.6); Absolute Neutrophils 7.7 10^3/uL (1.4-6.5); Hematocrit 19.6 % (37.0-47.0); Hemoglobin 6.2 g/dL (12.0-16.0); Mean Corp Hgb Conc. 31.6 g/dL (33.0-37.0); Mean Corpuscular Hgb 31.2 pg (27.0-31.0); Mean Corpuscular Volume 98.5 fL (81.0-99.0); Mean Platelet Volume 11.7 fL (7.4-10.4); Nucleated Red Blood Cells % 0 %; Platelet Count 214 10^3/uL (130-400); Red Blood Cell Count 1.99 10^6/uL (4.20-5.40); White Blood Cell Count 9.3 10^3/uL (4.8-10.8)
[2024-09-21 08:57] LABS: Blood Urea Nitrogen 55 mg/dl (7-17); Calcium 8.4 mg/dl (8.4-10.2); Carbon Dioxide 37 mmol/L (22-30); Chloride 93 mmol/L (98-107); Estimated Creatinine Clearance 22 ml/min; Glucose 90 mg/dl (70-99); Potassium 4.6 mmol/L (3.5-5.1); Sodium 134 mmol/L (135-145); eGFR 34.15
[2024-09-21] MEDS: PROCARDIA XL (EXTENDED RELEASE) 30 MG PO (09:28)
[2024-09-21] MEDS: DEMADEX 10 MG PO (09:29)
[2024-09-21] MEDS: APRESOLINE 50 MG PO ×2 (09:29→21:02)
[2024-09-21] MEDS: TOPROL XL 25 MG PO ×2 (09:30→21:01)
[2024-09-21] MEDS: THERAGRAN 1 TABLET PO (09:30)
[2024-09-21] MEDS: LOW STRENGTH ASPIRIN 81 MG PO (09:30)
[2024-09-21] MEDS: SENOKOT-S PO (09:31)
[2024-09-21] MEDS: MIRALAX 17 GRAMS PO (09:31)
[2024-09-21] MEDS: DIAMOX 125 MG PO (09:31)
--- NOTE | 2024-09-21 10:47 | CON.ONC ---
Impression
Impression
Anemia, unspecified
Acute hypoxemic respiratory insufficiency
Right-sided transudative pleural effusion
Acute on chronic HFpEF
Chronic hyponatremia
CKD [id number] cr 1.2-1.3
PAT
HTN
Chronic normocytic anemia
Hyperlipidemia
Essential hypertension
Constipation
proteinuria-1.7gm/gm of cr
Plan
Plan
Etiology of anemia no obvious at this point.
No evidence for active bleeding.
No evidence for hemolysis.
Retic count elevated but not to the level we would expect to see but some tof that might be her age and CKD.
Check EPO level.
Iron panel suggests AOCD not true iron deficiency.
Transfuse PRN HgB < 7 PRN.
Patient History
History of Present Illness
Chief Complaint: chest pain
History of Present Illness:
84 year old female presents with face swelling, leg edema, and shortness of breath. Admitted for acute hypoxemic respiratory insufficiency, a right-sided transudative pleural effusion, and acute on chronic HFpEF. Currently getting diuresis. She
also has multi-focal pneumonia, most pronounced in RLL and was started on IV Zosyn. Consulted for falling HgB in the absence of bleeding. HgB 10.2 dropped to 6.2. Currently getting PRBC transfusion.
Past-Medical/Surgical History
PMH: CHF (chronic HfpEF), HTN and Other (hyponatremia, hyperkalemia, RBBB), previous syncope and atrial tachycardia
Past Surgical History:
Social History
Tobacco: Non-Smoker
Alcohol: None
Living: With Family
Family History
Family History: Hypertension
Patient Medication
�Medication �Instructions �Recorded �Confirmed �Last Taken �Type
multivitamin with folic acid 400 1 tab PO DAILY Supplement 04/13/20 09/10/24 09/10/24 History
mcg tablet (Tab-A-Luba)
hydralazine 25 mg tablet 50 mg (2 x 25 mg) PO BID #60 tabs 04/19/20 09/10/24 09/10/24 Rx
metoprolol succinate 25 mg 25 mg PO DAILY #30 tabs 04/19/20 09/10/24 09/10/24 Rx
tablet,extended release 24 hr
aspirin 81 mg chewable tablet 81 mg PO DAILY #30 tabs 06/17/22 09/10/24 09/10/24 Rx
atorvastatin 40 mg tablet 40 mg PO QPM #30 tabs 06/17/22 09/10/24 09/09/24 Rx
calcium carbonate 500 mg PO DAILY Supplement 04/24/24 09/10/24 09/10/24 History
nifedipine 30 mg tablet,extended 30 mg PO DAILY Blood Pressure 09/10/24 09/10/24 09/10/24 History
release 24 hr
omega 4-mvb-ftg-fish oil 1,000 mg 1 cap PO DAILY Supplement 09/10/24 09/10/24 09/10/24 History
(120 mg-180 mg) capsule (Fish Oil)
prednisolone 1 %-moxifloxacin 0.5 1 drp ophthalmic (eye) QID Eye 09/10/24 09/10/24 09/10/24 History
%-bromfenac 0.075 % eye drops susp Condition
sodium zirconium cyclosilicate 5 5 g PO DAILY Supplement 09/10/24 09/10/24 09/08/24 History
gram oral powder packet (Lokelma)
torsemide 5 mg tablet 5 mg PO DAILY Fluid 09/10/24 09/10/24 09/10/24 History
Retention/Swelling
Active Medications
Generic Name Dose Route Start Last Admin
Trade Name Freq PRN Reason Stop Dose Admin
Acetaminophen 650 mg 09/15/24 13:46
Acetaminophen 325 Mg Tablet PO 10/13/24 13:45
Q6HPRN PRN
mild pain/ fever>100.5F/kat
Acetazolamide 125 mg 09/20/24 20:00 09/21/24 09:31
Acetazolamide 125 Mg Tablet PO 09/21/24 20:01 125 mg
BID CHERYL Administration
Aspirin 81 mg 09/11/24 08:00 09/21/24 09:30
Aspirin 81 Mg Chewable Tablet PO 10/09/24 07:59 81 mg
DAILY CHERYL Administration
Atorvastatin Calcium 40 mg 09/10/24 21:00 09/20/24 17:21
Atorvastatin (Lipitor) 40 Mg Tablet PO 10/08/24 20:59 40 mg
QPM CHERYL Administration
Hydralazine HCl 50 mg 09/10/24 21:00 09/21/24 09:29
Hydralazine 25 Mg Tablet PO 10/08/24 20:59 50 mg
BID CHERYL Administration
Piperacillin Sod/Tazobactam Sod 2.25 grams in 50 mls @ 100 mls/hr 09/19/24 18:00 09/21/24 05:58
Zosyn IV 50 mls
Q6H CHERYL Administration
Ferric Sodium Gluconate 110 mls @ 110 mls/hr 09/20/24 16:00 09/20/24 16:26
Complex 125 mg/ Sodium IV 09/24/24 14:59 110 mls
Chloride DAILY@1400 CHERYL Administration
Metoprolol Succinate 25 mg 09/12/24 20:00 09/21/24 09:30
Metoprolol 25 Mg Extended Release Tablet PO 10/10/24 19:59 25 mg
BID CHERYL Administration
Multivitamins Therapeutic 1 tablet 09/11/24 08:00 09/21/24 09:30
Multivitamin Tablet PO 10/09/24 07:59 1 tablet
DAILY CHERYL Administration
Nifedipine 30 mg 09/11/24 08:00 09/21/24 09:28
Nifedipine 30 Mg Extended Release Tablet PO 10/09/24 07:59 30 mg
DAILY CHERYL Administration
Polyethylene Glycol 17 grams 09/12/24 16:00 09/21/24 09:31
Polyethylene Glycol Powder 17 Grams Packet PO 10/10/24 15:59 17 grams
DAILY CHERYL Administration
Senna/Docusate Sodium 1 tablet 09/12/24 20:00 09/21/24 09:31
Docusate W/Senna (Malina-Colace) Tablet PO 10/10/24 19:59 Not Given
BID CHERYL
Sodium Chloride 0 flush 09/10/24 18:00 09/20/24 23:33
Sodium Chloride 0.9% (Flush) Syringe IV 10/08/24 17:59 1 flush
PER PROTOCOL CHERYL Administration
Torsemide 10 mg 09/13/24 08:00 09/21/24 09:29
Torsemide 5 Mg Tablet PO 10/11/24 07:59 10 mg
DAILY CHERYL Administration
Physical Exam
-
General: No Apparent Distress and Comfortable
HEENT: Negative Jaundice
Cardiology: S1 and S2
Pulmonary: Clear
GI: Soft
Extremities: No C/C/E
Labs
Lab Results
WBC 9.3 10^3/uL (4.8-10.8) 09/21/24 07:22
RBC 1.99 10^6/uL (4.20-5.40) L 09/21/24 07:22
Hgb 6.2 g/dL (12.0-16.0) L* 09/21/24 07:22
Hct 19.6 % (37.0-47.0) L* 09/21/24 07:22
MCV 98.5 fL (81.0-99.0) 09/21/24 07:22
MCH 31.2 pg (27.0-31.0) H 09/21/24 07:22
MCHC 31.6 g/dL (33.0-37.0) L 09/21/24 07:22
RDW 12.0 % (11.5-14.5) 09/21/24 07:22
Plt Count 214 10^3/uL (130-400) 09/21/24 07:22
MPV 11.7 fL (7.4-10.4) H 09/21/24 07:22
Abs Immat Gran (auto) 0.1 10^3/uL (0-0.05) H 09/21/24 07:22
Absolute Neuts (auto) 7.7 10^3/uL (1.4-6.5) H 09/21/24 07:22
Absolute Lymphs (auto) 0.7 10^3/uL (1.2-3.4) L 09/21/24 07:22
Absolute Monos (auto) 0.7 10^3/uL (0.1-0.6) H 09/21/24 07:22
Absolute Eos (auto) 0.2 10^3/uL (0-0.7) 09/21/24 07:22
Absolute Basos (auto) 0.0 10^3/uL (0-0.2) 09/21/24 07:22
Immature Gran % 0.5 % (0-0.5) 09/21/24 07:22
Neutrophils % 82.0 % (42.2-75.2) H 09/21/24 07:22
Lymphocytes % 7.9 % (20.5-51.1) L 09/21/24 07:22
Monocytes % 7.1 % (1.7-9.3) 09/21/24 07:22
Eosinophils % 2.4 % (0-6) 09/21/24 07:22
Basophils % 0.1 % (0-2) 09/21/24 07:22
Creatinine 1.5 mg/dL (0.6-1.0) H 09/21/24 07:22
Laboratory Tests
09/19/24 09/20/24
07:44 07:48
Retic Count 2.8
Creatinine 1.4 H
Iron 46
TIBC 273
% Saturation 16 L
Ferritin 84.3
Lactate Dehydrogenase 158
Total Protein 5.4 L
Vitamin B12 857
Folate > 20.0 H
Vital Signs
Vital Signs
Temp Pulse Resp BP Pulse Ox
98.0 F 58 18 109/44 98
09/21/24 10:40 09/21/24 10:40 09/21/24 10:40 09/21/24 10:40 09/21/24 10:40
--- NOTE | 2024-09-21 11:43 | W.PN.NEPH.PH ---
Today's Communication / Plan
-
Diamox given for suspected contraction alkalosis
Maintain oral torsemide at current dosage
Blood products given
Follow BMP
Assessment/Plan
-
IMP:
Acute on chr HFpEF
Chronic hyponatremia
CKD [id number] cr 1.2-1.3
PAT
HTN
Chronic normocytic anemia
Hyperlipidemia
Essential hypertension
Constipation
proteinuria-1.7gm/gm of cr
Plan:
A/w CHF, sodium down to 134, fluid restriction 1440 mL/day
Creatinine up at 1.5 b, uop ~1200cc,weights up
Hemoglobin dropping to 6.2, I suspect this is inducing a significant prerenal stimulus contributing to both acute kidney injury and hyponatremia
For blood products today
Moderate right effusion s/p thoracentesis 400cc 09/19
abx per pulm
met alkalosis-s/p diamox provided for three doses
Continue with torsemide 10mg daily, wt stable
Follow BMP
-
-
Date of Service: September 21, 2024
CC / HPI / ROS
-
Chief Complaint:
Shortness of breath and CHF
History of Present Illness:
Patient with more chronic kidney disease CHF presents with shortness of breath
Creatinine up at 1.5
Sodium down to 134
s/p thoracentesis 400cc 09/19
Bp labile
hb low 6.2
Review of Systems:
Weights are up
non oliguric
Labs
-
Labs:
Sodium 134 mmol/L (135-145) L 09/21/24 07:22
Potassium 4.6 mmol/L (3.5-5.1) 09/21/24 07:22
Chloride 93 mmol/L (98-107) L 09/21/24 07:22
Carbon Dioxide 37 mmol/L (22-30) H 09/21/24 07:22
BUN 55 mg/dl (7-17) H 09/21/24 07:22
Creatinine 1.5 mg/dL (0.6-1.0) H 09/21/24 07:22
eGFR 34.15 09/21/24 07:22
Glucose 90 mg/dl (70-99) 09/21/24 07:22
Calcium 8.4 mg/dl (8.4-10.2) 09/21/24 07:22
Vqs-Y-Yznkfakuhke Pept 47820 pg/ml 09/13/24 06:58
Albumin 3.0 g/dl (3.5-5.0) L 09/20/24 07:48
Physical Exam
-
Vital Signs:
Vital Signs
Temp Pulse Resp BP Pulse Ox
98.0 F 58 18 109/44 98
09/21/24 10:40 09/21/24 10:40 09/21/24 10:40 09/21/24 10:40 09/21/24 10:40
Cardiovascular:: Regular rate and rhythm
Respiratory:: Bilateral: Coarse
Lung Excursion:: Normal
Abdomen:: Nontender and Soft
Extremity Edema:: None: Bilateral:
De Oliveira Catheter: No
--- NOTE | 2024-09-21 11:55 | W.PN.HOSP.TC ---
Today's Communication/Plan
-
Transfuse [address] C/A/P, EPO, CBC in PM
Hemoglobin goal >7 or lack of symptoms
Continue IV antibiotic for now
Continue oral torsemide and Diamox per nephrology
Assessment / Plan
Assessment / Plan
#Acute hypoxemic respiratory insufficiency
#Right-sided transudative pleural effusion
#Acute on chronic HFpEF
-Status post course of IV Lasix for decompensated HFpEF; now on torsemide 10 mg daily, no GDMT
-Had chest x-ray performed 09/17 that showed moderate loculated right pleural effusion
-MRSA screen pending; blood culture NGTD; urine Legionella and streptococcal antigens negative
-Thoracentesis on 09/19 transudative per lights criteria and protein ratios; pH >7.4 low suspicion for empyema or parapneumonic
-Pulmonology following; started IV Zosyn after thoracentesis; repeat CT shows signs of multifocal pneumonia
-As of this morning requiring 1 L of O2 with SpO2 98%
Plan
-Continue IV Zosyn and trend CBC and temperature curve
-Continue oral torsemide 10 mg daily; diamox PRN per neph
-Follow-up pleural fluid cultures and AFB
-Ultimately plan to transition to Augmentin
-Aspiration precautions, as needed nebs
-SpO2 goal > 90%
#Acute on chronic anemia
#Chronic normocytic anemia
-Differentials include occult bleeding event v. acute on chronic AOCD
-Hemoglobin dropped from 9.5-7.5-7.0-7.1-6.2; no bleeding reported
-iron studies and B vitamins without deficiency; reticulocyte 2.8%; LFTs normal
-Type and screen obtained, ordering 1 unit of PRBC now
-Remains asymptomatic concerning symptoms of anemia
-Consulted hematology, recommended checking EPO
Plan
-Order CT C/A/P to assess for hematoma, r/o retroperitoneal hematoma
-Follow-up EPO level
-Repeat CBC this afternoon following blood
-Will continue to trend CBC, monitor for bleeding
-Transfuse hemoglobin <7.0 or symptoms
#Hypervolemic hyponatremia
-Sodium as low as 125 here; associated with decompensated heart failure
-Nephrology following, s/p 1 dose of Samsca with sodium up to 140
-Continue to trend BMP on oral torsemide
#Dyslipidemia
-No known ASCVD history, remains on statin therapy
#Primary hypertension
-No known history of hypertensive systemic diseases
-Home medications include nifedipine and hydralazine
-Blood pressure well-controlled
#CKD 3
-Creatinine here has been stable in the range of 1-1.2
-Patient appears fairly euvolemic now s/p IV diuresis
-No chronic acidemia or signs of bone mineral disease
-Continue to monitor BMP
#Chronic RBBB
DVT prophylaxis: SCDs ordered
Diet: Cholesterol-lowering
CODE STATUS: Full code
Daughter updated at bedside or by phone on 09/19, 09/20, 09/21
Anticipated Discharge: > 48 hours
Subjective/Interval History
-
Date of Service: September 21, 2024
Seen and examined at the bedside. No acute events overnight. AFVSS on 1 L O2 with SpO2 100%
Hemoglobin this morning did come back at 6.1. Spoke with daughter on the phone and obtained consent for transfusion. Ordered 1 unit PRBC. Hematology consulted and ordered EPO levels
Patient denies any new complaints today, states she feels well. Denies any sources of bleeding that she is aware of
Objective Data
-
Labs:
Laboratory Results
09/21/24 09/21/24
07:22 17:00
WBC 9.3 Pending
Hgb 6.2 L* Pending
Hct 19.6 L* Pending
Plt Count 214 Pending
Sodium 134 L
Potassium 4.6
Chloride 93 L
Carbon Dioxide 37 H
BUN 55 H
Creatinine 1.5 H
Glucose 90
Calcium 8.4
Vital Signs:
Vital Signs
Temp Pulse Resp BP Pulse Ox
97.9 F 62 18 127/40 100
09/21/24 11:53 09/21/24 11:53 09/21/24 11:53 09/21/24 11:53 09/21/24 11:53
I&O
09/20/24 09/21/24 09/22/24
06:59 06:59 06:59
Intake Total 720 / 720 690 / 690 0 / 0
Output Total 450 / 450 1200 / 1200
Balance 270 / 270 -510 / -510 0 / 0
Review of Systems
-
History Source: Patient
All other systems: Reviewed and negative
Physical Exam
-
General: Well Developed, No Apparent Distress, Comfortable and Other (Frail-appearing)
HEENT: Normocephalic, Atraumatic, Moist Mucous Membranes and Anicteric
Respiratory: Rales and Non Labored Respirations; Negative Wheezes, Rhonchi or Accessory Resp Muscle Use
Cardiac: Regular Rhythm and S1/S2; Negative Murmur, Rub, JVD or Gallop
GI: Soft, Nontender, Nondistended and Normal Bowel Sounds
Genito-urinary: Other (No flank pain or costovertebral angle tenderness)
Musculoskeletal: No Clubbing, No Cyanosis and No Edema
Skin: Warm, Dry and Normal Turgor; Negative Rash
Neuro: AO x 3 and Nonfocal/Grossly Intact; Negative Tremors
Psych: Calm
Data Reviewed
-
Labs: Labs Reviewed by me, Discussed with Physician (Hematology, nephrology), Discussed with Patient and Discussed with Family
[2024-09-21] MEDS: ZOSYN IV (12:00)
--- NOTE | 2024-09-21 13:02 | W.PN.PUL3 ---
Today's Communication / Plan
-
-Await f/u CT Chest
-If infectious work up stays negative, will considering narrowing antibiotic coverage in 24-48 hrs
Assessment
-
Assessment: 84-year-old female non-smoker with a past medical history of COVID-19, CKD, chronic HFpEF, history of bradycardia and history of syncopal episodes who presented from home with shakiness and weakness. She also had facial swelling with
leg edema and shortness of breath. She had worsening shortness of breath with orthopnea and thus brought her to the ER. She had admitted to drinking more water prior to arrival with a diet that was somewhat high in salt. She was admitted on
09/10/2024 for an acute HFpEF exacerbation with initial CXR showing a suspected pneumonia at the left base. Initial WBC was 10.5 with initial proBNP of 5430. She was treated in the ER with 40 mg IV Lasix and then admitted to telemetry for suspected
CHF exacerbation. She had no infectious symptoms and procalcitonin was negative (<0.05), hence no antibiotics were started. Cardiology consulted and she was continued with torsemide which improved her clinically, and also got 40mg IV lasix on
09/10-09/11. Her creatinine slowly worsened and nephrology was consulted. Echo on 09/12/2024 showed preserved biventricular function with LVEF 60-65% with mild as moderate MR, and pulmonary hypertension with PASP 52 mmHg. There was normal LV
diastolic function. She also developed hyponatremia with sodium alec 125 mmol/L - received tolvaptan 7.5 mg on 09/13. Patient started to require supplemental oxygen on 09/13 up to 2 L/min, and had SOB when she laid on her left side. CXR on the
evening of 09/13 showed a large right-sided pleural effusion which was new compared to CXR from 3 days prior. Chest ultrasound performed on 09/14 showed a small pleural effusion on the left and a more moderate-sized effusion on the right with what
appears to be septations on the US images. She did receive 60 mg IV Lasix on 09/15. CXR on 09/17 showed persistent/slightly worsening right-sided pleural effusion with suggested loculation. Patient is pending IR thoracentesis. Pulmonary service
now consulted for additional management/recommendations.
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
Impression:
#Right sided, Pleural effusion. Initial CXR on 09/10 was without any effusion, first noted on CXR on 09/13.
s/p Thoracentesis 09/19, 400 ml sero-sanguinous fluid. Pseudo-exudate with Serum Protein-Pleural protein gradient >3.2. Heart failure appears to be the etiology
-Negative cytology. Negative culture so far.
-Continue diuretics
-Await f/u imaging
# Multi-focal pneumonia, most pronounced in RLL
-Started on Zosyn, follow up cultures
-Need f/u CT in 6-8 weeks to ensure resolution and normal underlying parenchyma, no h/o smoking
-Will arrange out patient follow up with Pulmonary clinic
-Few crackles on exam, await f/u imaging
#Acute HFpEF exacerbation with worsened Pulmonary HTN
-PA pressure up to 52 on recent ECHO compared from 30 in the past. Suspect Group II with CHF exacerbation
-Needs f/u ECHO in 3 months after achieving Euvolemia. If still elevated, will need RHC
-Continue O2 support to avoid hypoxia
-Out patient follow up with cardiology
#Acute respiratory failure with hypoxia due to above
-O2 as needed
Total time spent on this consultation/encounter _39_ minutes which includes review of history, physical exam, medications, laboratory data, personal review of imaging, extensive review of outpatient records, discussion with care team and respiratory
therapy.
Data:
CT Chest 08/2024: Interval improvement within the right-sided pleural effusion with trace residual right-sided pleural effusion. No pneumothorax.
There is bilateral lower lobe bronchial wall thickening with bilateral lower lobe nodular opacities/consolidations which represent atelectasis, however is suspicious for multifocal pneumonia. Additionally there are ground glass opacities within the
right middle and upper lobes which may be infectious/inflammatory. Recommend follow-up to ensure resolution.
Diffuse hypoattenuation of the mediastinal blood pool which can be seen with anemia.
CXR 09/17/2024:
Progressed findings suggesting a loculated moderate right pleural effusion.
Moderate opacification of the right lower lung field concerning for right lower lobe pneumonia. Stable
Cardiomegaly. Stable
ECHO 08/2024: Normal LV wall thickness. Normal left ventricular chamber size. Normal left
ventricular systolic function. Left ventricular ejection fraction is 60-65% by
visual assessment. Normal diastolic function.
Mitral valve opens normally. Thickened mitral valve leaflets. Mild to moderate
mitral regurgitation.
Tricuspid valve opens normally. Mild tricuspid regurgitation. Estimated
pulmonary artery pressure of 52 mmHg, assuming a right atrial pressure of 3
mmHg.
Since echo April 2024, PA systolic pressure is increased from 30 mmHg to 52
mmHg.
Subjective Data
-
Date of Service:
Date of Service: September 21, 2024
Subjective:
Lying in bed, no acute distress, receiving blood transfusion. No new pulmonary complaints.
Review of Systems
Genitourinary: Other (No new symptoms reported )
Objective Data
Data Reviewed
Vital Signs / I&O / Oxygen:
Vital Signs
Temp Pulse Resp BP Pulse Ox
97.9 F 62 18 127/40 100
09/21/24 11:53 09/21/24 11:53 09/21/24 11:53 09/21/24 11:53 09/21/24 11:53
Intake and Output
09/20/24 09/21/24 09/22/24
06:59 06:59 06:59
Intake Total 720 / 720 690 / 690 0 / 0
Output Total 450 / 450 1200 / 1200
Balance 270 / 270 -510 / -510 0 / 0
SaO2 100
Nasal Cannula flow liters per 1
minute
Physical Exam
General: Comfortable
HEENT: Normocephalic and Other (Pale conjunctiva)
Cardiovascular: S1-S2 and Regular Rhythm
Respiratory: Clear, Non-Labored Respirations and Other (Decreased air entry in the right side. )
GI: Soft and Non Distended
Neurology: Awake and Alert
Skin: Warm
Labs/Micro/Reports
Lab Data
09/21/24 07:22
Microbiology
09/19/24 15:18 Pleural Fluid Body Fluid Culture - Preliminary
No Growth After 48 Hours
09/19/24 15:18 Pleural Fluid Gram Stain - Preliminary
09/19/24 07:44 Blood/Venous Blood Culture - Preliminary
No Growth in 48 hours- Final report to follow
09/18/24 23:00 Nose MRSA Screen - Final
No Methicillin Resistant Staphylococcus aureus isolated.
09/18/24 23:00 Urine Legionella Urinary Antigen - Final
Negative for Legionella pneumophila Serogroup 1 antigen.
A negative result does not rule out the possiblity of
Legionella infection due to other serogroups or species of
Legionella. Clinical correlation is recommended.
09/18/24 23:00 Urine Streptococcus pneumoniae Antigen (M - Final
Negative for Streptococcus pneumoniae antigen.
A negative result does not exclude infection with
Streptococcus pneumoniae. Clinical correlation is
recommended.
[2024-09-21 13:40] LABS: Venous Blood Gas B.E. 8.9 mmol/L (-4 to +4); Venous Blood Gas HCO3 36.8 mmol/L (22-27); Venous Blood Gas O2 Sat % 87.2 %; Venous Blood Gas pH 7.31 (7.32-7.43); Venous Blood Gas pO2 51 mmHg (30-50)
[2024-09-21 13:46] LABS: Venous Blood Gas pCO2 73 mmHg (35-48)
--- NOTE | 2024-09-21 14:27 | CM ---
Chart reviewed. Care ongoing at this time.
Cont IV abx. Aspiration precautions, as needed nebs.
SpO2 goal > 90%
Plan: Home w/ VN
[2024-09-21 14:34] LABS: Hematocrit 25.1 % (37.0-47.0); Hemoglobin 8.3 g/dL (12.0-16.0); Mean Corp Hgb Conc. 33.1 g/dL (33.0-37.0); Mean Corpuscular Hgb 31.1 pg (27.0-31.0); Mean Platelet Volume 10.8 fL (7.4-10.4); Platelet Count 187 10^3/uL (130-400); Red Blood Cell Count 2.67 10^6/uL (4.20-5.40); Red Cell Dist. Width 15.7 % (11.5-14.5); White Blood Cell Count 7.2 10^3/uL (4.8-10.8)
[2024-09-21] MEDS: FERRLECIT 110 MG IV (16:12)
--- NOTE | 2024-09-21 16:59 | W.PN.UPDATE ---
Update Note
Progress Note Update
VBG today came back with pH 7.31, pCO2 73, bicarb 37. CT scan showing reaccumulation of right pleural effusion. Patient currently AAOx4. Likely multifactorial etiology with acidemia from acetazolamide, alkalosis from diuresis with potential
respiratory component (primary v. compensatory)
Discussed with pulmonary. Will hold off on further acetazolamide doses for now and check ABG now. Trend VBG and repeat chest x-ray in the morning. Will plan for IR thoracentesis if pleural effusion continues to reaccumulate.
If patient develops shortness of breath or any alteration to her mental status overnight would trial her on BiPAP and upgrade to IMU.
[2024-09-21 17:25] LABS: B.E. 6.2 mmol/L; HCO3 33.5 mmol/L (21-28); O2 Saturation % 99.7 % (94-98); PCO2 65 mmHg (32-35); PO2 147 mmHg (83-108); pH 7.32 (7.35-7.45)
[2024-09-21] MEDS: LIPITOR 40 MG PO (18:04)
[2024-09-21] MEDS: SENOKOT-S 1 TABLET PO (21:02)
[2024-09-22] VITALS (7 sets, daily range): BP systolic 110–140; BP diastolic 38–51; PULSE 64; O2SAT 97; BMI 20.9
[2024-09-22] MEDS: ZOSYN 50 IV ×2 (04:14→09:14)
[2024-09-22 06:45] LABS: Venous Blood Gas B.E. 7.4 mmol/L (-4 to +4); Venous Blood Gas HCO3 34.8 mmol/L (22-27); Venous Blood Gas O2 Sat % 99.6 %; Venous Blood Gas pCO2 66 mmHg (35-48); Venous Blood Gas pH 7.33 (7.32-7.43); Venous Blood Gas pO2 177 mmHg (30-50)
[2024-09-22 06:46] LABS: Venous Blood Gas O2 Therapy ROOM AIR
[2024-09-22 06:52] LABS: % Basophils 0.2 % (0-2); % Eosinophils 2.4 % (0-6); % Immature Granulocytes 1.1 % (0-0.5); % Monocytes 6.6 % (1.7-9.3); % Neutrophils 82.7 % (42.2-75.2); Absolute Eosinophils 0.2 10^3/uL (0-0.7); Absolute Immature Granulocytes 0.1 10^3/uL (0-0.05); Absolute Lymphocytes 0.6 10^3/uL (1.2-3.4); Absolute Monocytes 0.6 10^3/uL (0.1-0.6); Absolute Neutrophils 7.3 10^3/uL (1.4-6.5); Hematocrit 27.2 % (37.0-47.0); Hemoglobin 8.7 g/dL (12.0-16.0); Mean Corpuscular Hgb 30.1 pg (27.0-31.0); Mean Corpuscular Volume 94.1 fL (81.0-99.0); Mean Platelet Volume 11.7 fL (7.4-10.4); Nucleated Red Blood Cells % 0 %; Platelet Count 192 10^3/uL (130-400); Red Blood Cell Count 2.89 10^6/uL (4.20-5.40); Red Cell Dist. Width 15.8 % (11.5-14.5); White Blood Cell Count 8.9 10^3/uL (4.8-10.8)
[2024-09-22 07:09] LABS: Blood Urea Nitrogen 63 mg/dl (7-17); Calcium 8.5 mg/dl (8.4-10.2); Carbon Dioxide 36 mmol/L (22-30); Chloride 95 mmol/L (98-107); Estimated Creatinine Clearance 19 ml/min; Glucose 98 mg/dl (70-99); Potassium 4.2 mmol/L (3.5-5.1); Sodium 134 mmol/L (135-145); eGFR 29.39
[2024-09-22] MEDS: DEMADEX PO (09:05)
[2024-09-22] MEDS: MIRALAX 17 GRAMS PO (09:11)
[2024-09-22] MEDS: TOPROL XL 25 MG PO ×2 (09:12→20:33)
[2024-09-22] MEDS: PROCARDIA XL (EXTENDED RELEASE) 30 MG PO (09:13)
[2024-09-22] MEDS: SENOKOT-S 1 TABLET PO ×2 (09:13→20:33)
[2024-09-22] MEDS: THERAGRAN 1 TABLET PO (09:13)
[2024-09-22] MEDS: LOW STRENGTH ASPIRIN 81 MG PO (09:13)
[2024-09-22] MEDS: APRESOLINE 50 MG PO ×2 (09:14→20:32)
--- NOTE | 2024-09-22 09:19 | W.PN.ONC2 ---
Today's Communication / Plan
-
.
Impression
Impression
acute on chronic Anemia, suspect AOCD/CKD, component of MARCIN with ferritin <100. No B12 or folate deficiency
Acute hypoxemic respiratory insufficiency
Right pleural effusion, cytology negative for malignancy
Acute on chronic HFpEF
PNA
pulmonary HTN
hyponatremia
BRANDON on CKD
proteinuria-1.7gm/gm of cr
Plan
Plan
monitor for bleeding, check heme stool
receiving IV iron ordered by nephrology
f/u EPO level
check SPEP, FLC
Transfuse PRN HgB < 7 PRN.
diuresis per nepro
pulmonary following on IV abx
Subjective/Objective
Subjective
no new complaints
Vital Signs:
Vital Signs
Temp Pulse Resp BP Pulse Ox
98.3 F 61 16 125/39 100
09/22/24 07:30 09/22/24 09:12 09/22/24 07:30 09/22/24 09:12 09/22/24 07:30
Lab Results:
Laboratory Data
WBC 8.9 10^3/uL (4.8-10.8) 09/22/24 06:30
Hgb 8.7 g/dL (12.0-16.0) L 09/22/24 06:30
Plt Count 192 10^3/uL (130-400) 09/22/24 06:30
eGFR 29.39 09/22/24 06:30
Physical Exam
comfortable appearing
[2024-09-22 10:18] LABS: Albumin 2.7 g/dl (3.5-5.0)
--- NOTE | 2024-09-22 11:09 | W.PN.HOSP.TC ---
Today's Communication/Plan
-
Hold torsemide and Diamox
Transition to Augmentin
Trend BMP and UOP
Follow-up EPO and SPEP
Assessment / Plan
Assessment / Plan
#Acute hypoxemic respiratory insufficiency
#Right-sided transudative pleural effusion
#Acute on chronic HFpEF
-Status post course of IV Lasix for decompensated HFpEF; now on torsemide 10 mg daily, no GDMT
-Had chest x-ray performed 09/17 that showed moderate loculated right pleural effusion
-MRSA screen pending; blood culture NGTD; urine Legionella and streptococcal antigens negative
-Thoracentesis on 09/19 transudative per lights criteria and protein ratios; pH >7.4 low suspicion for empyema or parapneumonic
-Pulmonology following; started IV Zosyn after thoracentesis; repeat CT shows signs of multifocal pneumonia
-AFB and Pleural Cx neg; As of this morning requiring 1 L of O2 with SpO2 98%
Plan
-Transition to PO augmentin, trend CBC and temperature curve
-Holding torsemide and acetazolamide for acidosis and uptrending Cr
-Aspiration precautions, as needed nebs
-Serial chest x-ray to monitor effusion
-SpO2 goal > 90%
#BRANDON on CKD 3a
#Contraction alkalosis
#Acidosis from acetazolamide
-Baseline creatinine in the range of 1.1-1.3; No chronic acidemia or signs of bone mineral disease
-Creatinine up to 1.7, as of 09/22, after IV diuresis; now holding acetazolamide and torsemide
-Suspect intravascular depletion in the context of diuresis, anemia
-Urine output of 500 mL in the last 24 hours per I/Os; weight stable
Plan
-Holding torsemide due to BRANDON; holding acetazolamide due to acidemia
-Monitor urine output closely for signs of oliguria
-Avoid nephrotoxic agents
-Continue to monitor BMP
#Acute on chronic anemia
#Chronic normocytic anemia
-Differentials include occult bleeding event v. acute on chronic AOCD
-Hemoglobin dropped from 9.5-7.5-7.0-7.1-6.2; no bleeding reported
-iron studies and B vitamins without deficiency; reticulocyte 2.8%; LFTs normal
-Type and screen obtained; s/p 1 unit PRBC with hemoglobin up to 8.7
-Consulted hematology, recommended checking EPO and SPEP
Plan
-Follow-up EPO level and SPEP
-Will continue to trend CBC, monitor for bleeding
-Transfuse hemoglobin <7.0 or symptoms
#Hypervolemic hyponatremia
-Sodium as low as 125 here; associated with decompensated heart failure
-Nephrology following, s/p 1 dose of Samsca with sodium up to 140
-Continue to trend BMP on oral torsemide
#Dyslipidemia
-No known ASCVD history, remains on statin therapy
#Primary hypertension
-No known history of hypertensive systemic diseases
-Home medications include nifedipine and hydralazine
-Blood pressure well-controlled
#Chronic RBBB
DVT prophylaxis: SCDs ordered
Diet: Cholesterol-lowering
CODE STATUS: Full code
Daughter updated at bedside or by phone on 09/19, 09/20, 09/21, 09/22
Anticipated Discharge: > 48 hours
Subjective/Interval History
-
Date of Service: September 22, 2024
Seen and examined at the bedside. No acute events reported overnight. AFVSS on 1 L with SpO2 100%
Hemoglobin responded, up to 8.7 after 1 unit PRBC. Renal function worsening with creatinine up to 1.[address] C/A/P with small amounts of right pleural fluid
Patient states she feels tired but denies other complaints today.
Objective Data
-
Labs:
Laboratory Results
09/22/24
06:30
WBC 8.9
Hgb 8.7 L
Hct 27.2 L
Plt Count 192
Sodium 134 L
Potassium 4.2
Chloride 95 L
Carbon Dioxide 36 H
BUN 63 H
Creatinine 1.7 H
Glucose 98
Calcium 8.5
Vital Signs:
Vital Signs
Temp Pulse Resp BP Pulse Ox
98.3 F 61 16 125/39 100
09/22/24 07:30 09/22/24 09:12 09/22/24 07:30 09/22/24 09:12 09/22/24 07:30
I&O
09/21/24 09/22/24 09/23/24
06:59 06:59 06:59
Intake Total 690 / 690 610 / 610
Output Total 1200 / 1200 500 / 500
Balance -510 / -510 110 / 110
Review of Systems
-
History Source: Patient
All other systems: Reviewed and negative
Physical Exam
-
General: Well Developed, No Apparent Distress and Other (Frail-appearing)
HEENT: Normocephalic, Atraumatic, Moist Mucous Membranes and Anicteric
Respiratory: Rales and Non Labored Respirations; Negative Wheezes, Rhonchi or Accessory Resp Muscle Use
Cardiac: Regular Rhythm and S1/S2; Negative Murmur, Rub, JVD or Gallop
GI: Soft, Nontender, Nondistended and Normal Bowel Sounds
Musculoskeletal: No Clubbing, No Cyanosis and No Edema
Skin: Warm, Dry and Normal Turgor; Negative Rash
Neuro: AO x 3 and Nonfocal/Grossly Intact; Negative Tremors
Psych: Calm
Data Reviewed
-
Labs: Labs Reviewed by me, Discussed with Physician (Pulmonology, nephrology), Discussed with Patient and Discussed with Family
--- NOTE | 2024-09-22 13:00 | W.PN.PUL3 ---
Today's Communication / Plan
-
- Chest x-ray portable in a.m.
-Diuresis as tolerated, monitor renal function closely
Assessment
-
Assessment: 84-year-old female non-smoker with a past medical history of COVID-19, CKD, chronic HFpEF, history of bradycardia and history of syncopal episodes who presented from home with shakiness and weakness. She also had facial swelling with
leg edema and shortness of breath. She had worsening shortness of breath with orthopnea and thus brought her to the ER. She had admitted to drinking more water prior to arrival with a diet that was somewhat high in salt. She was admitted on
09/10/2024 for an acute HFpEF exacerbation with initial CXR showing a suspected pneumonia at the left base. Initial WBC was 10.5 with initial proBNP of 5430. She was treated in the ER with 40 mg IV Lasix and then admitted to telemetry for suspected
CHF exacerbation. She had no infectious symptoms and procalcitonin was negative (<0.05), hence no antibiotics were started. Cardiology consulted and she was continued with torsemide which improved her clinically, and also got 40mg IV lasix on
09/10-09/11. Her creatinine slowly worsened and nephrology was consulted. Echo on 09/12/2024 showed preserved biventricular function with LVEF 60-65% with mild as moderate MR, and pulmonary hypertension with PASP 52 mmHg. There was normal LV
diastolic function. She also developed hyponatremia with sodium alec 125 mmol/L - received tolvaptan 7.5 mg on 09/13. Patient started to require supplemental oxygen on 09/13 up to 2 L/min, and had SOB when she laid on her left side. CXR on the
evening of 09/13 showed a large right-sided pleural effusion which was new compared to CXR from 3 days prior. Chest ultrasound performed on 09/14 showed a small pleural effusion on the left and a more moderate-sized effusion on the right with what
appears to be septations on the US images. She did receive 60 mg IV Lasix on 09/15. CXR on 09/17 showed persistent/slightly worsening right-sided pleural effusion with suggested loculation. Patient is pending IR thoracentesis. Pulmonary service
now consulted for additional management/recommendations.
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
Impression:
#Right sided, Pleural effusion. Initial CXR on 09/10 was without any effusion, first noted on CXR on 09/13.
s/p Thoracentesis 09/19, 400 ml sero-sanguinous fluid. Pseudo-exudate with Serum Protein-Pleural protein gradient >3.2. Heart failure appears to be the etiology
-Negative cytology. Negative culture so far.
-Continue diuretics
-f/u CT Chest 09/21: 'There is increased small right pleural effusion with new trace left pleural effusion and adjacent atelectasis. There are stable scattered opacities including the left lower lobe which may be infectious/inflammatory nature and
may represent pneumonia.'
-Effusions are small, fairly asymptomatic, monitor for now. If she develops any dyspnea or effusions get larger, will consider repeat Thoracentesis
-Volume management is very challenging with worsening renal function and concomitant CHF
-Underlying Pulmonary HTN can also cause pleural effusions.
# Multi-focal pneumonia, most pronounced in RLL
-Started on Zosyn, follow up cultures. Transitioned to Augmentin today
-Need f/u CT in 6-8 weeks to ensure resolution and normal underlying parenchyma, no h/o smoking
-Will arrange out patient follow up with Pulmonary clinic
#Acute HFpEF exacerbation with worsened Pulmonary HTN
-PA pressure up to 52 on recent ECHO compared from 30 in the past. Suspect Group II with CHF exacerbation
-Needs f/u ECHO in 3 months after achieving Euvolemia. If still elevated, will need RHC
-Continue O2 support to avoid hypoxia
-Out patient follow up with cardiology
#Acute respiratory failure with hypoxia due to above
-O2 as needed
Met with patient's daughter Thomas at bedside. Discussed case with attending hospitalist and casing flusher.
Total time spent on this consultation/encounter _45_ minutes which includes review of history, physical exam, medications, laboratory data, personal review of imaging, extensive review of outpatient records, discussion with care team and respiratory
therapy.
Data:
CT Chest 08/2024: Interval improvement within the right-sided pleural effusion with trace residual right-sided pleural effusion. No pneumothorax.
There is bilateral lower lobe bronchial wall thickening with bilateral lower lobe nodular opacities/consolidations which represent atelectasis, however is suspicious for multifocal pneumonia. Additionally there are ground glass opacities within the
right middle and upper lobes which may be infectious/inflammatory. Recommend follow-up to ensure resolution.
Diffuse hypoattenuation of the mediastinal blood pool which can be seen with anemia.
CXR 09/17/2024:
Progressed findings suggesting a loculated moderate right pleural effusion.
Moderate opacification of the right lower lung field concerning for right lower lobe pneumonia. Stable
Cardiomegaly. Stable
ECHO 08/2024: Normal LV wall thickness. Normal left ventricular chamber size. Normal left
ventricular systolic function. Left ventricular ejection fraction is 60-65% by
visual assessment. Normal diastolic function.
Mitral valve opens normally. Thickened mitral valve leaflets. Mild to moderate
mitral regurgitation.
Tricuspid valve opens normally. Mild tricuspid regurgitation. Estimated
pulmonary artery pressure of 52 mmHg, assuming a right atrial pressure of 3
mmHg.
Since echo April 2024, PA systolic pressure is increased from 30 mmHg to 52
mmHg.
Subjective Data
-
Date of Service:
Date of Service: September 22, 2024
Subjective:
Patient comfortably lying in bed, in no acute distress. Denies any orthopnea, cough or expectoration.
Review of Systems
General: Satisfactory Appetite (Poor appetite)
Neuro: Other (Reports feeling lethargic)
Genitourinary: Other (All 14 systems reviewed and negative except as stated above in the history of present illness.)
Objective Data
Data Reviewed
Vital Signs / I&O / Oxygen:
Vital Signs
Temp Pulse Resp BP Pulse Ox
97.5 F 64 16 117/38 97
09/22/24 11:37 09/22/24 11:37 09/22/24 11:37 09/22/24 11:37 09/22/24 11:37
Intake and Output
09/21/24 09/22/24 09/23/24
06:59 06:59 06:59
Intake Total 690 / 690 610 / 610
Output Total 1200 / 1200 500 / 500
Balance -510 / -510 110 / 110
SaO2 97
Nasal Cannula flow liters per 1
minute
Physical Exam
General: Comfortable
HEENT: Normocephalic and Other (Pale conjunctiva)
Cardiovascular: S1-S2 and Regular Rhythm
Respiratory: Clear, Non-Labored Respirations and Other (Decreased air entry in the right side. )
GI: Soft and Non Distended
Neurology: Awake and Alert
Skin: Warm
Labs/Micro/Reports
Lab Data
09/22/24 06:30
09/22/24 06:30
Laboratory Results
09/21/24
17:16
pH 7.32 L
pCO2 65 H
pO2 147 H
HCO3 33.5 H
O2 Delivery Level
Microbiology
09/19/24 15:18 Pleural Fluid Body Fluid Culture - Final
No Growth After 72 Hours
09/19/24 15:18 Pleural Fluid Gram Stain - Final
09/19/24 07:44 Blood/Venous Blood Culture - Preliminary
No Growth in 72 hours- Final report to follow
09/19/24 15:18 Pleural Fluid Acid Fast Bacilli Smear - Preliminary
09/19/24 15:18 Pleural Fluid Acid Fast Bacilli Culture - Preliminary
09/19/24 15:18 Pleural Fluid Fungal Smear - Final
No yeast or fungal elements seen.
09/18/24 23:00 Nose MRSA Screen - Final
No Methicillin Resistant Staphylococcus aureus isolated.
[2024-09-22] MEDS: FERRLECIT 110 MG IV (14:21)
--- NOTE | 2024-09-22 15:18 | W.PN.NEPH.PH ---
Today's Communication / Plan
-
Withhold diuretic
Discussed with cardiology
For echocardiogram today
Check postvoid bladder scan
Assessment/Plan
-
IMP:
Acute on chr HFpEF
Chronic hyponatremia
CKD [id number] cr 1.2-1.3
PAT
HTN
Chronic normocytic anemia
Hyperlipidemia
Essential hypertension
Constipation
proteinuria-1.7gm/gm of cr
Plan:
A/w CHF, sodium down to 134, fluid restriction 1440 mL/day
Creatinine up at 1.7 b, uop ~500cc,weights unchanged
Patient remains hemodynamically stable
Hemoglobin dropping to 8.7 after blood products
Respiratory acidosis and metabolic acidosis per review of ABG (predominantly respiratory)
Moderate right effusion s/p thoracentesis 400cc 09/19
We will withhold diuretics as creatinine escalated to 1.7
Volume status is in question right heart cath may need to be investigated,repeat echo today
CT scan of abdomen and pelvis does not reveal hydronephrosis
discussed with daughter today
Follow BMP
-
-
Date of Service: September 22, 2024
CC / HPI / ROS
-
Chief Complaint:
Shortness of breath and CHF
History of Present Illness:
Patient with more chronic kidney disease CHF presents with shortness of breath
Creatinine up at 1.8
Sodium down to 134
s/p thoracentesis 400cc 09/19
Hemodynamically
Hemoglobin up to 8.7 after transfusion
Review of Systems:
Weights are unchanged
non oliguric
Labs
-
Labs:
WBC 8.9 10^3/uL (4.8-10.8) 09/22/24 06:30
RBC 2.89 10^6/uL (4.20-5.40) L 09/22/24 06:30
Hgb 8.7 g/dL (12.0-16.0) L 09/22/24 06:30
Hct 27.2 % (37.0-47.0) L 09/22/24 06:30
Plt Count 192 10^3/uL (130-400) 09/22/24 06:30
Sodium 134 mmol/L (135-145) L 09/22/24 06:30
Potassium 4.2 mmol/L (3.5-5.1) 09/22/24 06:30
Chloride 95 mmol/L (98-107) L 09/22/24 06:30
Carbon Dioxide 36 mmol/L (22-30) H 09/22/24 06:30
BUN 63 mg/dl (7-17) H 09/22/24 06:30
Creatinine 1.7 mg/dL (0.6-1.0) H 09/22/24 06:30
eGFR 29.39 09/22/24 06:30
Glucose 98 mg/dl (70-99) 09/22/24 06:30
Calcium 8.5 mg/dl (8.4-10.2) 09/22/24 06:30
Dnv-O-Nthhriqckzt Pept 60723 pg/ml 09/13/24 06:58
Albumin 2.7 g/dl (3.5-5.0) L 09/22/24 06:30
Physical Exam
-
Vital Signs:
Vital Signs
Temp Pulse Resp BP Pulse Ox
97.5 F 64 16 117/38 97
09/22/24 11:37 09/22/24 11:37 09/22/24 11:37 09/22/24 11:37 09/22/24 11:37
Cardiovascular:: Regular rate and rhythm
Respiratory:: Bilateral: Coarse
Lung Excursion:: Normal
Abdomen:: Nontender and Soft
Bowel Sounds:: Normal
Extremity Edema:: +1: Bilateral:
De Oliveira Catheter: No
[2024-09-22] MEDS: LIPITOR 40 MG PO (17:43)
[2024-09-22] MEDS: AUGMENTIN 875 MG/125 MG 1 TABLET PO (20:33)
[2024-09-23 03:38] VITALS: BP 147/56
[2024-09-23 06:00] VITALS: BMI 20.9
[2024-09-23 07:00] LABS: % Basophils 0.3 % (0-2); % Eosinophils 1.7 % (0-6); % Immature Granulocytes 0.9 % (0-0.5); % Lymphocytes 6.2 % (20.5-51.1); % Monocytes 7.4 % (1.7-9.3); % Neutrophils 83.5 % (42.2-75.2); Absolute Eosinophils 0.2 10^3/uL (0-0.7); Absolute Immature Granulocytes 0.1 10^3/uL (0-0.05); Absolute Lymphocytes 0.6 10^3/uL (1.2-3.4); Absolute Monocytes 0.7 10^3/uL (0.1-0.6); Hematocrit 25.7 % (37.0-47.0); Hemoglobin 8.3 g/dL (12.0-16.0); Mean Corp Hgb Conc. 32.3 g/dL (33.0-37.0); Mean Corpuscular Hgb 30.6 pg (27.0-31.0); Mean Corpuscular Volume 94.8 fL (81.0-99.0); Mean Platelet Volume 11.7 fL (7.4-10.4); Nucleated Red Blood Cells % 0.2 %; Platelet Count 204 10^3/uL (130-400); Red Blood Cell Count 2.71 10^6/uL (4.20-5.40); Red Cell Dist. Width 14.9 % (11.5-14.5); White Blood Cell Count 9.6 10^3/uL (4.8-10.8)
[2024-09-23 07:24] LABS: ALT (SGPT) 22 U/L (0-35); AST (SGOT) 27 U/L (14-36); Albumin 2.9 g/dl (3.5-5.0); Alkaline Phosphatase 68 U/L (38-126); Blood Urea Nitrogen 70 mg/dl (7-17); Calcium 8.6 mg/dl (8.4-10.2); Carbon Dioxide 37 mmol/L (22-30); Chloride 96 mmol/L (98-107); Estimated Creatinine Clearance 22 ml/min; Glucose 98 mg/dl (70-99); Magnesium 2.8 mg/dl (1.6-2.3); Potassium 3.9 mmol/L (3.5-5.1); Sodium 135 mmol/L (135-145); Total Bilirubin 0.3 mg/dl (0.2-1.3); Total Protein 5.2 g/dl (6.3-8.2); eGFR 34.15
[2024-09-23 07:58] VITALS: BP 144/51
--- NOTE | 2024-09-23 08:04 | W.PN.CARDCBS ---
Addendum entered and electronically signed by Rose Regalado DO 09/23/24 16:46:
Spoke with Thomas and grandfelisha over the phone 09/23/24 and answered all questions to the best my ability. We did discuss a right heart catheterization which we will hold off at this time as they have initiated transfer to [place]. Can reconsider next
week if patient is still here.
Original Note:
Today's Communication / Plan
-
see above
LMOM for daughter Thomas for call back to discuss care
Impression / Plan
-
PCP: Dr. Lindsay Machado
Primary Automation Qa Lead: Dr. Regalado
Assessment:
Acute heart failure with preserved EF
CKD
Right pleural effusion
Pneumonia
Chronic hyponatremia
AoC anemia requring transfusion
CAD on CT imaging with NSTEMI during COVID-pneumonia May 2022
Hyperkalemia with lisinopril
Hypertension
Paroxysmal atrial tachycardia
History of bradycardia
Hypercholesterolemia
Right bundle branch block
Echocardiogram 09/12/2024: Ejection fraction 60 to 65%, mild to moderate MR, PA systolic 52 mmHg
Echo April 2024, EF 71%, mild LVH, mild MR, mild TR with PA pressure 30
Lexiscan nuclear stress test August 13, 2022 with fixed inferior defect and no ischemia. EF 60%
Late entry: 09/22/24
Plan:
Medically complex 84-year-old female with acute on chronic heart failure with preserved ejection fraction and pleural effusions, pulmonary hypertension, chronic hyponatremia, hypoalbuminemia, CKD, proteinuria, and acute on chronic normocytic anemia
requiring transfusion and multifocal pneumonia
-Attempts at IV diuresis have led to increased creatinine
-Transitioned to oral Demedex 10mg daily (increased from 5mg outpatient),now on hold
-Right pleural effusion status post thoracentesis with 400 cc on 09/19; negative for malignancy; transudative likely secondary to heart failure
-Discussed possibility of right heart catheterization with pulmonary and nephrology.
-Will start off with a repeat 2D echocardiogram to reassess pulmonary pressures and RV function. Echo later reviewed with no significant change; PASP remains ~45-50mmHg with normal IVC and RV size/function.
-she is not a candidate for ANAI/ARB/Aldactone with RASTA and prior hyperkalemia. Could consider addition of SGLT2 inhibitor as an outpatient if creatinine stabilizes
Multifocal pneumonia most pronounced right lower lobe on antibiotics
-Supplemental O2 as needed
-Pulmonary following
Coronary atherosclerosis noted on CT imaging
-No chest pain
-Troponin 09/10/2024 less than 0.012
HTN
-Blood pressure stable on metoprolol succinate 25 mg twice daily, hydralazine 50 mg twice daily and nifedipine 30 mg daily.
PAT
-Continue metroprolol succinate, increased this admission
Chronic kidney disease with fluctuating creatinine that worsens with attempts at diuresis/chronic hyponatremia
-Diuretics held today
-Received Samsca 09/13 and sodium up to 129
-Fluid restriction
Acute on chronic anemia requiring transfusion 09/21/24 for Hb 6.2
-baseline Hb ~10
-Imaging does not reveal retroperitoneal bleed no obvious bleeding
-Hematology consulted
-IV iron
-SPEP/FLC pending
Discussed in detail with Nephrology and pulmonary 09/22/24
Progress Note - Automation Qa Lead
Subjective
Date of Service: September 22, 2024
Late entry
Seen and examined. Sitting out of bed to chair eating.
Objective
Labs:
09/23/24 06:48
09/23/24 06:48
Labs
Hgb 8.3 g/dL (12.0-16.0) L 09/23/24 06:48
Hct 25.7 % (37.0-47.0) L 09/23/24 06:48
Plt Count 204 10^3/uL (130-400) 09/23/24 06:48
Sodium 135 mmol/L (135-145) 09/23/24 06:48
Potassium 3.9 mmol/L (3.5-5.1) 09/23/24 06:48
BUN 70 mg/dl (7-17) H 09/23/24 06:48
Creatinine 1.5 mg/dL (0.6-1.0) H 09/23/24 06:48
Glucose 98 mg/dl (70-99) 09/23/24 06:48
Vital Signs and I&O:
Vital Signs
Temp Pulse Resp BP Pulse Ox
97.9 F 68 18 144/51 99
09/23/24 07:58 09/23/24 07:58 09/23/24 07:58 09/23/24 07:58 09/23/24 07:58
Vital Signs
Temp Pulse Resp BP Pulse Ox
97.9 F 68 18 144/51 99
09/23/24 07:58 09/23/24 07:58 09/23/24 07:58 09/23/24 07:58 09/23/24 07:58
Intake & Output
09/21/24 09/22/24 09/23/24 09/24/24
06:59 06:59 06:59 06:59
Intake Total 690 / 690 610 / 610 1180 / 1180
Output Total 1200 / 1200 500 / 500 1050 / 1050
Balance -510 / -510 110 / 110 130 / 130
Physical Exam
Physical Exam
GEN: No distress, awake, alert
HEENT: supple, anicteric, mmm, eomi
LUNGS: Decreased BS RLB, no wheezes
CV: Reg, S1/S2, 1/6 SM
EXT: No cyanosis, clubbing, edema
[2024-09-23] MEDS: PROCARDIA XL (EXTENDED RELEASE) 30 MG PO (09:41)
[2024-09-23] MEDS: SENOKOT-S 1 TABLET PO ×2 (09:41→21:40)
[2024-09-23] MEDS: AUGMENTIN 875 MG/125 MG 1 TABLET PO (09:41)
[2024-09-23] MEDS: LOW STRENGTH ASPIRIN 81 MG PO (09:41)
[2024-09-23] MEDS: MIRALAX 17 GRAMS PO (09:41)
[2024-09-23] MEDS: THERAGRAN 1 TABLET PO (09:41)
[2024-09-23] MEDS: APRESOLINE 50 MG PO ×2 (09:41→21:00)
[2024-09-23] MEDS: TOPROL XL 25 MG PO ×2 (09:41→21:00)
--- NOTE | 2024-09-23 11:10 | W.PN.HOSP.TC ---
Today's Communication/Plan
-
Hold diuretics and trend BMP
Serial chest x-ray
Trend CBC
Follow-up EPO, SPEP, FLC
Initiate transfer to [facility]
Assessment / Plan
Assessment / Plan
#Acute hypoxemic respiratory insufficiency
#Right-sided transudative pleural effusion
#Acute on chronic HFpEF
-Status post course of IV Lasix for decompensated HFpEF; now on torsemide 10 mg daily, no GDMT
-Had chest x-ray performed 09/17 that showed moderate loculated right pleural effusion
-MRSA screen pending; blood culture NGTD; urine Legionella and streptococcal antigens negative
-Thoracentesis on 09/19 transudative per lights criteria and protein ratios; pH >7.4 low suspicion for empyema or parapneumonic
-Pulmonology following; started IV Zosyn after thoracentesis; repeat CT shows signs of multifocal pneumonia
-AFB and Pleural Cx neg; As of this morning requiring 1 L of O2 with SpO2 98%
Plan
-C/W PO augmentin to complete 7 day course; trend CBC and temperature curve
-Holding torsemide and acetazolamide for acidosis and BRANDON
-Aspiration precautions, as needed nebs
-Serial chest x-ray to monitor effusion
-SpO2 goal > 90%
#BRANDON on CKD 3a
#Contraction alkalosis with respiratory acidosis
#Acidosis from acetazolamide
-Baseline creatinine in the range of 1.1-1.3; No chronic acidemia or signs of bone mineral disease
-Creatinine up to 1.7, as of 09/22, after IV diuresis; now holding acetazolamide and torsemide
-Suspect intravascular depletion in the context of diuresis, anemia; creatinine 1.5 as of 09/23
-Urine output of >1000 mL in the last 24 hours per I/Os; weight stable
Plan
-Holding torsemide due to BRANDON; holding acetazolamide due to acidemia
-Monitor urine output closely for signs of oliguria
-Avoid nephrotoxic agents
-Continue to monitor BMP
#Acute on chronic anemia
#Chronic normocytic anemia
-Differentials include occult bleeding event v. acute on chronic AOCD
-Hemoglobin dropped from 9.5-7.5-7.0-7.1-6.2; no bleeding reported
-iron studies and B vitamins without deficiency; reticulocyte 2.8%; LFTs normal
-Type and screen obtained; s/p 1 unit PRBC with hemoglobin up to 8.7->8.3
-Consulted hematology, recommended checking EPO and SPEP
Plan
-Follow-up EPO level and SPEP
-Will continue to trend CBC, monitor for bleeding
-Transfuse hemoglobin <7.0 or symptoms
#Hypervolemic hyponatremia
-Sodium as low as 125 here; associated with decompensated heart failure
-Nephrology following, s/p 1 dose of Samsca with sodium up to 140
-Continue to trend BMP on oral torsemide
#Dyslipidemia
-No known ASCVD history, remains on statin therapy
#Primary hypertension
-No known history of hypertensive systemic diseases
-Home medications include nifedipine and hydralazine
-Blood pressure well-controlled
#Chronic RBBB
DVT prophylaxis: SCDs ordered
Diet: Cholesterol-lowering
CODE STATUS: Full code
Daughter updated at bedside or by phone on 09/19, 09/20, 09/21, 09/22, 09/23
Disposition: Patient's daughter requesting transfer to [facility], states that she spoke with Dr. Newman who states he would accept quickly. Will initiate transfer today
Anticipated Discharge: > 48 hours
Subjective/Interval History
-
Date of Service: September 23, 2024
Seen and examined at the bedside. No acute events reported overnight. AFVSS on 1 L oxygen with SpO2 99%
Chest x-ray this morning with minimal right pleural fluid. Renal function improving and hemoglobin stable
Patient states she feels well, denies any new complaints. Had a bowel movement that was heme-negative
Daughter requesting transfer to [facility]
Objective Data
-
Labs:
Laboratory Results
09/23/24
06:48
WBC 9.6
Hgb 8.3 L
Hct 25.7 L
Plt Count 204
Sodium 135
Potassium 3.9
Chloride 96 L
Carbon Dioxide 37 H
BUN 70 H
Creatinine 1.5 H
Glucose 98
Calcium 8.6
Total Bilirubin 0.3
AST 27
ALT 22
Alkaline Phosphatase 68
Vital Signs:
Vital Signs
Temp Pulse Resp BP Pulse Ox
97.9 F 68 18 144/51 99
09/23/24 07:58 09/23/24 07:58 09/23/24 07:58 09/23/24 07:58 09/23/24 07:58
I&O
09/22/24 09/23/24 09/24/24
06:59 06:59 06:59
Intake Total 610 / 610 1180 / 1180
Output Total 500 / 500 1050 / 1050
Balance 110 / 110 130 / 130
Review of Systems
-
History Source: Patient
All other systems: Reviewed and negative
Physical Exam
-
General: Well Developed, No Apparent Distress, Comfortable, Appears Chronically Ill and Other (Frail-appearing)
HEENT: Normocephalic, Atraumatic, Moist Mucous Membranes and Anicteric
Respiratory: Crackles and Non Labored Respirations; Negative Accessory Resp Muscle Use
Cardiac: Regular Rhythm and S1/S2; Negative Murmur, Rub, JVD or Gallop
GI: Soft, Nontender, Nondistended and Normal Bowel Sounds
Musculoskeletal: No Clubbing, No Cyanosis and No Edema
Skin: Warm, Dry and Normal Turgor; Negative Rash
Neuro: AO x 3 and Nonfocal/Grossly Intact
Psych: Calm
Data Reviewed
-
Labs: Labs Reviewed by me, Discussed with Physician (Operator Automated Process), Discussed with Patient and Discussed with Family
[2024-09-23 11:37] VITALS: BP 134/54
--- NOTE | 2024-09-23 11:42 | W.PN.NEPH.PH ---
Today's Communication / Plan
-
Hold diuretics
Assessment/Plan
-
IMP:
Acute on chr HFpEF
Chronic hyponatremia
CKD [id number] cr 1.2-1.3
PAT
HTN
Chronic normocytic anemia
Hyperlipidemia
Essential hypertension
Constipation
proteinuria-1.7gm/gm of cr
Plan:
A/w CHF, fluid restriction 1440 mL/day
Patient remains hemodynamically stable
Respiratory acidosis and metabolic acidosis per review of ABG (predominantly respiratory)
Moderate right effusion s/p thoracentesis 400cc 09/19
We will withhold diuretics as creatinine escalated to 1.7
Volume status is in question right heart cath may need to be investigated,repeat echo today
CT scan of abdomen and pelvis does not reveal hydronephrosis
Repeat echo from 09/22 shows ejection fraction 60 to 65% pulmonary artery pressure 45-50. No significant change in echocardiogram from September 12
Creatinine stable at 1.5.
Holding diuretics again today
-
-
Date of Service: September 23, 2024
CC / HPI / ROS
-
Chief Complaint:
Shortness of breath and CHF
History of Present Illness:
Patient with more chronic kidney disease CHF presents with shortness of breath
Creatinine stable improved
s/p thoracentesis 400cc 09/19
Review of Systems:
Weights are unchanged
non oliguric
Labs
-
Labs:
WBC 9.6 10^3/uL (4.8-10.8) 09/23/24 06:48
RBC 2.71 10^6/uL (4.20-5.40) L 09/23/24 06:48
Hgb 8.3 g/dL (12.0-16.0) L 09/23/24 06:48
Hct 25.7 % (37.0-47.0) L 09/23/24 06:48
Plt Count 204 10^3/uL (130-400) 09/23/24 06:48
Sodium 135 mmol/L (135-145) 09/23/24 06:48
Potassium 3.9 mmol/L (3.5-5.1) 09/23/24 06:48
Chloride 96 mmol/L (98-107) L 09/23/24 06:48
Carbon Dioxide 37 mmol/L (22-30) H 09/23/24 06:48
BUN 70 mg/dl (7-17) H 09/23/24 06:48
Creatinine 1.5 mg/dL (0.6-1.0) H 09/23/24 06:48
eGFR 34.15 09/23/24 06:48
Glucose 98 mg/dl (70-99) 09/23/24 06:48
Calcium 8.6 mg/dl (8.4-10.2) 09/23/24 06:48
Mav-Y-Ilfaoovhlca Pept 36654 pg/ml 09/13/24 06:58
Albumin 2.9 g/dl (3.5-5.0) L 09/23/24 06:48
Physical Exam
-
Vital Signs:
Vital Signs
Temp Pulse Resp BP Pulse Ox
97.7 F 65 18 134/54 99
09/23/24 11:37 09/23/24 11:37 09/23/24 11:37 09/23/24 11:37 09/23/24 11:37
Cardiovascular:: Regular rate and rhythm
Respiratory:: Bilateral: Coarse
Lung Excursion:: Normal
Abdomen:: Nontender and Soft
Bowel Sounds:: Normal
Extremity Edema:: +1: Bilateral:
De Oliveira Catheter: No
--- NOTE | 2024-09-23 13:14 | CM ---
Chart reviewed. Patient's daughter requesting transfer to [facility]. Hospitalist initiated transfer today.
Plan: Pending [place] transfer
--- NOTE | 2024-09-23 14:32 | W.PN.CARDCBS ---
Today's Communication / Plan
-
Remains hypoxic on 1 L
Creatinine stable at 1.5 nephrology recommends holding diuretics
Offered right heart cath but patient's daughter declines
Patient daughter request transfer to [place] which is being initiated
Impression / Plan
-
PCP: Dr. Lindsay Machado
Primary Event Staff: Dr. Regalado
Assessment:
Acute heart failure with preserved EF
CKD
Right pleural effusion/ status post thoracentesis with 400 cc on 09/19; negative for malignancy; transudative likely secondary to heart failure
Pneumonia
Chronic hyponatremia
AoC anemia requring transfusion
CAD on CT imaging with NSTEMI during COVID-pneumonia May 2022
Hyperkalemia with lisinopril
Hypertension
Paroxysmal atrial tachycardia
History of bradycardia
Hypercholesterolemia
Right bundle branch block
Echocardiogram 09/22/2024: Ejection fraction 60 to 65%, mild to moderate MR, mild TR with PA systolic of 45-50 mmHg
Echocardiogram 09/12/2024: Ejection fraction 60 to 65%, mild to moderate MR, PA systolic 52 mmHg
Echo April 2024, EF 71%, mild LVH, mild MR, mild TR with PA pressure 30
Lexiscan nuclear stress test August 13, 2022 with fixed inferior defect and no ischemia. EF 6
Plan:
Very difficult volume status.
Has renal sufficiency with diuresis
Diuretics now on hold and creatinine has improved to 1.5
Being followed by nephrology recommends continue to hold diuretics
Echocardiogram 09/22/2024 was unchanged
Remains on 1 L of oxygen he could potentially need home oxygen
Explained right heart catheterization be a way to determine volume status but daughter declines
Continue antibiotics for pneumonia
PAT stable on higher dose of Toprol
Daughter wishes patient to be transferred to [place] which appears to have been initiated by primary service
Discussed with patient's grandson by phone as well
Total visit and prep time 52 minutes
Progress Note - Event Staff
Subjective
Date of Service: September 23, 2024
No complaints. Remains on 1 L of oxygen.
Objective
Labs:
09/23/24 06:48
09/23/24 06:48
Labs
Hgb 8.3 g/dL (12.0-16.0) L 09/23/24 06:48
Hct 25.7 % (37.0-47.0) L 09/23/24 06:48
Plt Count 204 10^3/uL (130-400) 09/23/24 06:48
Sodium 135 mmol/L (135-145) 09/23/24 06:48
Potassium 3.9 mmol/L (3.5-5.1) 09/23/24 06:48
BUN 70 mg/dl (7-17) H 09/23/24 06:48
Creatinine 1.5 mg/dL (0.6-1.0) H 09/23/24 06:48
Glucose 98 mg/dl (70-99) 09/23/24 06:48
Vital Signs and I&O:
Vital Signs
Temp Pulse Resp BP Pulse Ox
97.7 F 65 18 134/54 99
09/23/24 11:37 09/23/24 11:37 09/23/24 11:37 09/23/24 11:37 09/23/24 11:37
Vital Signs
Temp Pulse Resp BP Pulse Ox
97.7 F 65 18 134/54 99
09/23/24 11:37 09/23/24 11:37 09/23/24 11:37 09/23/24 11:37 09/23/24 11:37
Intake & Output
09/21/24 09/22/24 09/23/24 09/24/24
06:59 06:59 06:59 06:59
Intake Total 690 / 690 610 / 610 1180 / 1180
Output Total 1200 / 1200 500 / 500 1050 / 1050
Balance -510 / -510 110 / 110 130 / 130
Physical Exam
Physical Exam
General: Well developed, well nourished in NAD.
Neck: Supple, no JVD, HJR, carotids +2 B/L, no bruits bilaterally.
Heart: Non displaced PMI, RRR, no murmurs, No S3, S4, no rubs.
Lungs: Scattered rhonchi at the bases
Extremities: No clubbing, cyanosis or edema bilaterally.
Neuro: Grossly nonfocal, awake, alert and oriented x3.
--- NOTE | 2024-09-23 14:50 | W.PN.PUL3 ---
Today's Communication / Plan
-
-Recommend Antibiotics for total of 7 days
-CXR PRN if develops any dyspnea
Assessment
-
Assessment: 84-year-old female non-smoker with a past medical history of COVID-19, CKD, chronic HFpEF, history of bradycardia and history of syncopal episodes who presented from home with shakiness and weakness. She also had facial swelling with
leg edema and shortness of breath. She had worsening shortness of breath with orthopnea and thus brought her to the ER. She had admitted to drinking more water prior to arrival with a diet that was somewhat high in salt. She was admitted on
09/10/2024 for an acute HFpEF exacerbation with initial CXR showing a suspected pneumonia at the left base. Initial WBC was 10.5 with initial proBNP of 5430. She was treated in the ER with 40 mg IV Lasix and then admitted to telemetry for suspected
CHF exacerbation. She had no infectious symptoms and procalcitonin was negative (<0.05), hence no antibiotics were started. Cardiology consulted and she was continued with torsemide which improved her clinically, and also got 40mg IV lasix on
09/10-09/11. Her creatinine slowly worsened and nephrology was consulted. Echo on 09/12/2024 showed preserved biventricular function with LVEF 60-65% with mild as moderate MR, and pulmonary hypertension with PASP 52 mmHg. There was normal LV
diastolic function. She also developed hyponatremia with sodium alec 125 mmol/L - received tolvaptan 7.5 mg on 09/13. Patient started to require supplemental oxygen on 09/13 up to 2 L/min, and had SOB when she laid on her left side. CXR on the
evening of 09/13 showed a large right-sided pleural effusion which was new compared to CXR from 3 days prior. Chest ultrasound performed on 09/14 showed a small pleural effusion on the left and a more moderate-sized effusion on the right with what
appears to be septations on the US images. She did receive 60 mg IV Lasix on 09/15. CXR on 09/17 showed persistent/slightly worsening right-sided pleural effusion with suggested loculation. Patient is pending IR thoracentesis. Pulmonary service
now consulted for additional management/recommendations.
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
Impression:
#Right sided, Pleural effusion. Initial CXR on 09/10 was without any effusion, first noted on CXR on 09/13.
s/p Thoracentesis 09/19, 400 ml sero-sanguinous fluid. Pseudo-exudate with Serum Protein-Pleural protein gradient >3.2. Heart failure appears to be the etiology
-Negative cytology. Negative culture so far.
-Continue diuretics
-f/u CT Chest 09/21: 'There is increased small right pleural effusion with new trace left pleural effusion and adjacent atelectasis. There are stable scattered opacities including the left lower lobe which may be infectious/inflammatory nature and
may represent pneumonia.'
-Effusions are small, fairly asymptomatic, monitor for now. If she develops any dyspnea or effusions get larger, will consider repeat Thoracentesis
-Volume management is very challenging with worsening renal function and concomitant CHF
-Underlying Pulmonary HTN can also cause pleural effusions
-CXR on 09/23 as well as Bedside POCUS, only trace right sided effusion noted.
# Multi-focal pneumonia, most pronounced in RLL
-Started on Zosyn, follow up cultures. Transitioned to Augmentin. Recommend total of 7 days of antibiotics
-Need f/u CT in 6-8 weeks to ensure resolution and normal underlying parenchyma, no h/o smoking
-Will arrange out patient follow up with Pulmonary clinic
#Acute HFpEF exacerbation with worsened Pulmonary HTN
-PA pressure up to 52 on recent ECHO compared from 30 in the past. Suspect Group II with CHF exacerbation
-Continue O2 support to avoid hypoxia
-Out patient follow up with cardiology
#Acute respiratory failure with hypoxia due to above
-O2 as needed
Met with patient's daughter Thomas at bedside. Discussed case with attending hospitalist and plant tour guide as well. Daughter enquiring about transfer to [facility], primary team working on it.
Total time spent on this consultation/encounter _42_ minutes which includes review of history, physical exam, medications, laboratory data, personal review of imaging, extensive review of outpatient records, discussion with care team and respiratory
therapy.
Data:
CT Chest 08/2024: Interval improvement within the right-sided pleural effusion with trace residual right-sided pleural effusion. No pneumothorax.
There is bilateral lower lobe bronchial wall thickening with bilateral lower lobe nodular opacities/consolidations which represent atelectasis, however is suspicious for multifocal pneumonia. Additionally there are ground glass opacities within the
right middle and upper lobes which may be infectious/inflammatory. Recommend follow-up to ensure resolution.
Diffuse hypoattenuation of the mediastinal blood pool which can be seen with anemia.
CXR 09/17/2024:
Progressed findings suggesting a loculated moderate right pleural effusion.
Moderate opacification of the right lower lung field concerning for right lower lobe pneumonia. Stable
Cardiomegaly. Stable
ECHO 08/2024: Normal LV wall thickness. Normal left ventricular chamber size. Normal left
ventricular systolic function. Left ventricular ejection fraction is 60-65% by
visual assessment. Normal diastolic function.
Mitral valve opens normally. Thickened mitral valve leaflets. Mild to moderate
mitral regurgitation.
Tricuspid valve opens normally. Mild tricuspid regurgitation. Estimated
pulmonary artery pressure of 52 mmHg, assuming a right atrial pressure of 3
mmHg.
Since echo April 2024, PA systolic pressure is increased from 30 mmHg to 52
mmHg.
Subjective Data
-
Date of Service:
Date of Service: September 23, 2024
Subjective:
Patient lying flat in bed without any dyspnea. No cough, wheezing or orthopnea reported,.
Review of Systems
Genitourinary: Other (No new symptoms reported. )
Objective Data
Data Reviewed
Vital Signs / I&O / Oxygen:
Vital Signs
Temp Pulse Resp BP Pulse Ox
97.7 F 65 18 134/54 99
09/23/24 11:37 09/23/24 11:37 09/23/24 11:37 09/23/24 11:37 09/23/24 11:37
Intake and Output
09/22/24 09/23/24 09/24/24
06:59 06:59 06:59
Intake Total 610 / 610 1180 / 1180
Output Total 500 / 500 1050 / 1050
Balance 110 / 110 130 / 130
SaO2 99
Nasal Cannula flow liters per 1
minute
Physical Exam
General: Comfortable
HEENT: Normocephalic and Other (Pale conjunctiva)
Cardiovascular: S1-S2 and Regular Rhythm
Respiratory: Clear, Non-Labored Respirations and Other (Good air entry both sides )
GI: Soft and Non Distended
Neurology: Awake and Alert
Skin: Warm
Labs/Micro/Reports
Lab Data
09/23/24 06:48
09/23/24 06:48
Microbiology
09/19/24 07:44 Blood/Venous Blood Culture - Preliminary
No Growth in 4 days- Final report to follow
09/19/24 15:18 Pleural Fluid Body Fluid Culture - Final
No Growth After 72 Hours
09/19/24 15:18 Pleural Fluid Gram Stain - Final
09/19/24 15:18 Pleural Fluid Acid Fast Bacilli Smear - Preliminary
09/19/24 15:18 Pleural Fluid Acid Fast Bacilli Culture - Preliminary
09/19/24 15:18 Pleural Fluid Fungal Smear - Final
No yeast or fungal elements seen.
[2024-09-23] MEDS: FERRLECIT 110 MG IV (15:02)
[2024-09-23 15:38] VITALS: BP 96/53
[2024-09-23] MEDS: LIPITOR 40 MG PO (18:15)
[2024-09-23 19:51] VITALS: BP 132/49
[2024-09-23] MEDS: HEPARIN 5000 UNITS SC (21:00)
[2024-09-23] MEDS: AUGMENTIN 500 MG/125 MG 1 TABLET PO (21:00)
[2024-09-23 23:33] VITALS: BP 137/41
[2024-09-24] VITALS (7 sets, daily range): BP systolic 93–140; BP diastolic 42–85; BMI 20.8
[2024-09-24 00:23] LABS: Erythropoietin (EPO) 30 mU/mL (4-27)
[2024-09-24 07:59] LABS: % Basophils 0.4 % (0-2); % Eosinophils 1.5 % (0-6); % Immature Granulocytes 1.1 % (0-0.5); % Lymphocytes 7.5 % (20.5-51.1); % Monocytes 7.5 % (1.7-9.3); Absolute Eosinophils 0.2 10^3/uL (0-0.7); Absolute Immature Granulocytes 0.1 10^3/uL (0-0.05); Absolute Lymphocytes 0.8 10^3/uL (1.2-3.4); Absolute Monocytes 0.8 10^3/uL (0.1-0.6); Absolute Neutrophils 8.6 10^3/uL (1.4-6.5); Hematocrit 23.4 % (37.0-47.0); Hemoglobin 7.6 g/dL (12.0-16.0); Mean Corp Hgb Conc. 32.5 g/dL (33.0-37.0); Mean Corpuscular Volume 95.5 fL (81.0-99.0); Mean Platelet Volume 12.5 fL (7.4-10.4); Nucleated Red Blood Cells % 0 %; Platelet Count 211 10^3/uL (130-400); Red Blood Cell Count 2.45 10^6/uL (4.20-5.40); Red Cell Dist. Width 14.1 % (11.5-14.5); White Blood Cell Count 10.5 10^3/uL (4.8-10.8)
[2024-09-24 08:10] LABS: Blood Urea Nitrogen 72 mg/dl (7-17); Calcium 8.8 mg/dl (8.4-10.2); Carbon Dioxide 33 mmol/L (22-30); Chloride 96 mmol/L (98-107); Estimated Creatinine Clearance 24 ml/min; Glucose 99 mg/dl (70-99); Potassium 4.3 mmol/L (3.5-5.1); Sodium 135 mmol/L (135-145)
[2024-09-24] MEDS: SENOKOT-S 1 TABLET PO ×2 (09:52→21:23)
[2024-09-24] MEDS: THERAGRAN 1 TABLET PO (09:52)
[2024-09-24] MEDS: HEPARIN SC ×3 (09:52→20:03)
[2024-09-24] MEDS: LOW STRENGTH ASPIRIN 81 MG PO (09:52)
[2024-09-24] MEDS: MIRALAX 17 GRAMS PO (09:52)
[2024-09-24] MEDS: AUGMENTIN 500 MG/125 MG 1 TABLET PO ×2 (09:52→21:23)
[2024-09-24] MEDS: TOPROL XL 25 MG PO ×2 (09:54→21:23)
[2024-09-24] MEDS: PROCARDIA XL (EXTENDED RELEASE) 30 MG PO (09:54)
--- NOTE | 2024-09-24 10:58 | W.PN.CARDCBS ---
Today's Communication / Plan
-
Stable cardiology status but remains on 1 L of oxygen
Await transfer to [place]
Nephrology and pulmonary following as well
Impression / Plan
-
PCP: Dr. Lindsay Machado
Primary General Internist And Physician Leader: Dr. Regalado
Assessment:
Acute heart failure with preserved EF
CKD
Right pleural effusion/ status post thoracentesis with 400 cc on 09/19; negative for malignancy; transudative likely secondary to heart failure
Pneumonia
Chronic hyponatremia
AoC anemia requring transfusion
CAD on CT imaging with NSTEMI during COVID-pneumonia May 2022
Hyperkalemia with lisinopril
Hypertension
Paroxysmal atrial tachycardia
History of bradycardia
Hypercholesterolemia
Right bundle branch block
Echocardiogram 09/22/2024: Ejection fraction 60 to 65%, mild to moderate MR, mild TR with PA systolic of 45-50 mmHg
Echocardiogram 09/12/2024: Ejection fraction 60 to 65%, mild to moderate MR, PA systolic 52 mmHg
Echo April 2024, EF 71%, mild LVH, mild MR, mild TR with PA pressure 30
Lexiscan nuclear stress test August 13, 2022 with fixed inferior defect and no ischemia. EF 6
Plan:
Diuretics remain on hold per nephrology input but stable creatinine of 1.4
She remains hypoxic on 1 L
Daughter declines right heart catheterization
She wishes patient to be transferred to [place] and awaiting bed placement
She may need home oxygen
Pulmonary is also following patient
Continue antibiotics for pneumonia
PAT stable on higher dose of Toprol
Progress Note - General Internist And Physician Leader
Subjective
Date of Service: September 24, 2024
No chest pain or shortness of breath. Remains on 1 L of oxygen.
Objective
Labs:
09/24/24 07:25
09/24/24 07:25
Labs
Hgb 7.6 g/dL (12.0-16.0) L 09/24/24 07:25
Hct 23.4 % (37.0-47.0) L 09/24/24 07:25
Plt Count 211 10^3/uL (130-400) 09/24/24 07:25
Sodium 135 mmol/L (135-145) 09/24/24 07:25
Potassium 4.3 mmol/L (3.5-5.1) 09/24/24 07:25
BUN 72 mg/dl (7-17) H 09/24/24 07:25
Creatinine 1.4 mg/dL (0.6-1.0) H 09/24/24 07:25
Glucose 99 mg/dl (70-99) 09/24/24 07:25
Vital Signs and I&O:
Vital Signs
Temp Pulse Resp BP Pulse Ox
97.9 F 61 18 127/51 100
09/24/24 07:05 09/24/24 09:54 09/24/24 07:05 09/24/24 09:54 09/24/24 07:05
Vital Signs
Temp Pulse Resp BP Pulse Ox
97.9 F 61 18 127/51 100
09/24/24 07:05 09/24/24 09:54 09/24/24 07:05 09/24/24 09:54 09/24/24 07:05
Intake & Output
09/22/24 09/23/24 09/24/24 09/25/24
06:59 06:59 06:59 06:59
Intake Total 610 / 610 1180 / 1180 1070 / 1070
Output Total 500 / 500 1050 / 1050 1550 / 1550
Balance 110 / 110 130 / 130 -480 / -480
Physical Exam
Physical Exam
General: Well developed, well nourished in NAD.
Neck: Supple, no JVD, HJR, carotids +2 B/L, no bruits bilaterally.
Heart: Non displaced PMI, RRR, no murmurs, No S3, S4, no rubs.
Lungs: Scattered rhonchi at the bases
Extremities: No clubbing, cyanosis or edema bilaterally.
Neuro: Grossly nonfocal, awake, alert and oriented x3.
[2024-09-24] MEDS: APRESOLINE PO (12:11)
--- NOTE | 2024-09-24 12:17 | W.PN.HOSP.TC ---
Today's Communication/Plan
-
Hold diuretics and trend BMP
Continue IV iron and trend CBC
Transfuse for hemoglobin <7
Wean oxygen
Encourage PT and out of bed activity
Assessment / Plan
Assessment / Plan
#Acute hypoxemic respiratory insufficiency
#Right-sided transudative pleural effusion
#Acute on chronic HFpEF
-Status post course of IV Lasix for decompensated HFpEF; now on torsemide 10 mg daily, no GDMT
-Had chest x-ray performed 09/17 that showed moderate loculated right pleural effusion
-MRSA screen pending; blood culture NGTD; urine Legionella and streptococcal antigens negative
-Thoracentesis on 09/19 transudative per lights criteria and protein ratios; pH >7.4 low suspicion for empyema or parapneumonic
-Pulmonology following; started IV Zosyn after thoracentesis; repeat CT shows signs of multifocal pneumonia
-AFB and Pleural Cx neg; As of this morning requiring 1 L of O2 with SpO2 98%
Plan
-C/W PO augmentin to complete 7 day course; trend CBC and temperature curve
-Holding torsemide and acetazolamide for acidosis and BRANDON
-May consider resuming torsemide at 5 mg when needed
-Aspiration precautions, as needed nebs
-Serial chest x-ray to monitor effusion
-SpO2 goal > 90%
#BRANDON on CKD 3a
#Contraction alkalosis with respiratory acidosis
#Acidosis from acetazolamide
-Baseline creatinine in the range of 1.1-1.3; No chronic acidemia or signs of bone mineral disease
-Creatinine up to 1.7, as of 09/22, after IV diuresis; now holding acetazolamide and torsemide
-Suspect intravascular depletion in the context of diuresis, anemia; creatinine 1.5 as of 09/23
-Urine output of >1000 mL in the last 24 hours per I/Os; weight stable
Plan
-Holding torsemide due to BRANDON; holding acetazolamide due to acidemia
-Monitor urine output closely for signs of oliguria
-Avoid nephrotoxic agents
-Continue to monitor BMP
#Acute on chronic anemia
#Chronic normocytic anemia
-Differentials include occult bleeding event v. acute on chronic AOCD
-Hemoglobin dropped from 9.5-7.5-7.0-7.1-6.2; no bleeding reported
-iron studies and B vitamins without deficiency; reticulocyte 2.8%; LFTs normal
-Type and screen obtained; s/p 1 unit PRBC, Hgb 8.3-8.7-8.3-7.6
-Consulted hematology, recommended checking EPO and SPEP
-EPO was normal, unlikely related to renal insufficiency
Plan
-Follow-up SPEP
-Will continue to trend CBC, monitor for bleeding
-Transfuse hemoglobin <7.0 or symptoms
#Hypervolemic hyponatremia
-Sodium as low as 125 here; associated with decompensated heart failure
-Nephrology following, s/p 1 dose of Samsca with sodium up to 140
-Continue to trend BMP
#Dyslipidemia
-No known ASCVD history, remains on statin therapy
#Primary hypertension
-No known history of hypertensive systemic diseases
-Home medications include nifedipine and hydralazine
-Blood pressure well-controlled
#Chronic RBBB
DVT prophylaxis: SCDs and heparin ordered (patient refuses SQ heparin)
Diet: Cholesterol-lowering
CODE STATUS: Full code
Daughter updated at bedside or by phone on 09/19, 09/20, 09/21, 09/22, 09/23
Disposition: Spoke with Pastora Mcgrath, patient's daughter mentioned acceptance by Dr. Newman. Transfer center spoke with Dr. Newman who says he did not approve any transfer to [facility] or [facility]. Transfer was canceled as there currently is not
any indication medically
Anticipated Discharge: 24 - 48 hours
Subjective/Interval History
-
Date of Service: September 24, 2024
Seen and examined at the bedside. No acute events reported overnight. Remains AFVSS on 1 L O2 with SpO2 100%
Patient states she did not sleep well yesterday, but denies any other complaints
Hemoglobin down to 7.6, Renal function improving with creatinine 1.4
Objective Data
-
Labs:
Laboratory Results
09/24/24
07:25
WBC 10.5
Hgb 7.6 L
Hct 23.4 L
Plt Count 211
Sodium 135
Potassium 4.3
Chloride 96 L
Carbon Dioxide 33 H
BUN 72 H
Creatinine 1.4 H
Glucose 99
Calcium 8.8
Vital Signs:
Vital Signs
Temp Pulse Resp BP Pulse Ox
97.6 F 62 18 132/42 98
09/24/24 11:43 09/24/24 11:43 09/24/24 11:43 09/24/24 11:43 09/24/24 11:43
I&O
09/23/24 09/24/24 09/25/24
06:59 06:59 06:59
Intake Total 1180 / 1180 1070 / 1070
Output Total 1050 / 1050 1550 / 1550
Balance 130 / 130 -480 / -480
Review of Systems
-
History Source: Patient
All other systems: Reviewed and negative
Physical Exam
-
General: Well Developed, No Apparent Distress and Comfortable
HEENT: Normocephalic, Atraumatic, Moist Mucous Membranes and Anicteric
Respiratory: Crackles, Non Labored Respirations and Accessory Resp Muscle Use
Cardiac: Regular Rhythm and S1/S2; Negative Murmur, Rub, JVD or Gallop
GI: Soft, Nontender, Nondistended and Normal Bowel Sounds
Musculoskeletal: No Clubbing, No Cyanosis and No Edema
Skin: Warm, Dry and Normal Turgor; Negative Rash
Neuro: AO x 3 and Nonfocal/Grossly Intact
Psych: Calm
Data Reviewed
-
Labs: Labs Reviewed by me, Discussed with Physician (Cardiology) and Discussed with Patient
--- NOTE | 2024-09-24 14:09 | W.PN.NEPH.PH ---
Today's Communication / Plan
-
Hold diuretics
Assessment/Plan
-
IMP:
Acute on chr HFpEF
Chronic hyponatremia
CKD [id number] cr 1.2-1.3
PAT
HTN
Chronic normocytic anemia
Hyperlipidemia
Essential hypertension
Constipation
proteinuria-1.7gm/gm of cr
Plan:
A/w CHF, fluid restriction 1440 mL/day
Patient remains hemodynamically stable
Respiratory acidosis and metabolic acidosis per review of ABG (predominantly respiratory)
Moderate right effusion s/p thoracentesis 400cc 09/19
We will withhold diuretics as creatinine escalated to 1.7
Volume status is in question right heart cath may need to be investigated,repeat echo today
CT scan of abdomen and pelvis does not reveal hydronephrosis
Repeat echo from 09/22 shows ejection fraction 60 to 65% pulmonary artery pressure 45-50. No significant change in echocardiogram from September 12
Creatinine stable at 1.5.
Holding diuretics again today.
The patient is comfortable.
The patient is awaiting potential transfer to [place]
-
-
Date of Service: September 24, 2024
CC / HPI / ROS
-
Chief Complaint:
Shortness of breath and CHF
History of Present Illness:
Patient with more chronic kidney disease CHF presents with shortness of breath
Creatinine stable improved
s/p thoracentesis 400cc 09/19
Review of Systems:
Weights are unchanged
non oliguric
Labs
-
Labs:
WBC 10.5 10^3/uL (4.8-10.8) 09/24/24 07:25
RBC 2.45 10^6/uL (4.20-5.40) L 09/24/24 07:25
Hgb 7.6 g/dL (12.0-16.0) L 09/24/24 07:25
Hct 23.4 % (37.0-47.0) L 09/24/24 07:25
Plt Count 211 10^3/uL (130-400) 09/24/24 07:25
Sodium 135 mmol/L (135-145) 09/24/24 07:25
Potassium 4.3 mmol/L (3.5-5.1) 09/24/24 07:25
Chloride 96 mmol/L (98-107) L 09/24/24 07:25
Carbon Dioxide 33 mmol/L (22-30) H 09/24/24 07:25
BUN 72 mg/dl (7-17) H 09/24/24 07:25
Creatinine 1.4 mg/dL (0.6-1.0) H 09/24/24 07:25
eGFR 37.10 09/24/24 07:25
Glucose 99 mg/dl (70-99) 09/24/24 07:25
Calcium 8.8 mg/dl (8.4-10.2) 09/24/24 07:25
Npr-Q-Mkwpqznamis Pept 69076 pg/ml 09/13/24 06:58
Albumin 2.9 g/dl (3.5-5.0) L 09/23/24 06:48
Physical Exam
-
Vital Signs:
Vital Signs
Temp Pulse Resp BP Pulse Ox
97.6 F 62 18 132/42 98
09/24/24 11:43 09/24/24 11:43 09/24/24 11:43 09/24/24 11:43 09/24/24 11:43
Cardiovascular:: Regular rate and rhythm
Respiratory:: Bilateral: Coarse
Lung Excursion:: Normal
Abdomen:: Nontender and Soft
Bowel Sounds:: Normal
Extremity Edema:: +1: Bilateral:
De Oliveira Catheter: No
[2024-09-24] MEDS: FERRLECIT 110 MG IV (14:19)
[2024-09-24] MEDS: LIPITOR 40 MG PO (18:42)
[2024-09-24] MEDS: MELATONIN 5 MG PO (22:09)
[2024-09-24] MEDS: APRESOLINE 50 MG PO (22:09)
[2024-09-25] VITALS (24 sets, daily range): BP systolic 96–144; BP diastolic 34–78; BMI 20.4
[2024-09-25 04:24] LABS: % Basophils 0.4 % (0-2); % Eosinophils 1.5 % (0-6); % Immature Granulocytes 1.2 % (0-0.5); % Lymphocytes 7.1 % (20.5-51.1); % Monocytes 6.2 % (1.7-9.3); % Neutrophils 83.6 % (42.2-75.2); Absolute Eosinophils 0.1 10^3/uL (0-0.7); Absolute Immature Granulocytes 0.1 10^3/uL (0-0.05); Absolute Lymphocytes 0.6 10^3/uL (1.2-3.4); Absolute Monocytes 0.6 10^3/uL (0.1-0.6); Absolute Neutrophils 7.4 10^3/uL (1.4-6.5); Hematocrit 16.7 % (37.0-47.0); Hemoglobin 5.4 g/dL (12.0-16.0); Mean Corp Hgb Conc. 32.3 g/dL (33.0-37.0); Mean Platelet Volume 11.1 fL (7.4-10.4); Nucleated Red Blood Cells % 0 %; Platelet Count 182 10^3/uL (130-400); Red Blood Cell Count 1.74 10^6/uL (4.20-5.40); Red Cell Dist. Width 14.2 % (11.5-14.5); White Blood Cell Count 8.9 10^3/uL (4.8-10.8)
[2024-09-25 04:42] LABS: Blood Urea Nitrogen 89 mg/dl (7-17); Calcium 8.5 mg/dl (8.4-10.2); Carbon Dioxide 36 mmol/L (22-30); Chloride 97 mmol/L (98-107); Estimated Creatinine Clearance 22 ml/min; Glucose 130 mg/dl (70-99); Potassium 4.5 mmol/L (3.5-5.1); Sodium 135 mmol/L (135-145); eGFR 34.15
--- NOTE | 2024-09-25 04:43 | PTCARENOTE ---
0423: HGB critical 5.4- ICU CLERK aware order for 2 Units PRBC to infuse. updated type and screen obtained. Blood card sent. Pt maintained on bedrest.
0420 HR 50-60s with brief bursts of tachycardia. House ICU CLERK aware
0345: pt vomited brownish/red emesis then had large gelatonous black BM HEME POSITIVE. BP 144/48 HR 76. Pt stating some SOB throughout the night, increased o2 from 1 L NC to 2 L NC. [place] ICU CLERK aware, order for AM labs now.
[2024-09-25] MEDS: MIRALAX PO (08:10)
[2024-09-25] MEDS: PROTONIX IV 80 MG IV (08:11)
[2024-09-25] MEDS: NSS (PRESERVATIVE FREE) 20 ML IV (08:11)
[2024-09-25] MEDS: TOPROL XL 25 MG PO ×2 (08:12→19:38)
[2024-09-25] MEDS: APRESOLINE 50 MG PO ×2 (08:12→19:39)
[2024-09-25] MEDS: AUGMENTIN 500 MG/125 MG 1 TABLET PO ×2 (08:12→19:38)
[2024-09-25] MEDS: THERAGRAN 1 TABLET PO (08:12)
[2024-09-25] MEDS: SENOKOT-S PO (08:12)
[2024-09-25] MEDS: PROCARDIA XL (EXTENDED RELEASE) 30 MG PO (08:13)
--- NOTE | 2024-09-25 10:11 | PTCARENOTE ---
Pt rec'd into ICU 3360 as IMU overflow from 4 East. Pulled to bed, assessment performed, CHG bath done, pericare provided. Pt with soft bps as prior, see worklist. Sa02 100% on 2L, attempts to wean down o2 ongoing. Pt continent of bowel and
bladder, no BMs since overnight. Pt with first of 2 units PRBCs finishing up, (order clarified with Dr. Rivera) and second unit sent for and hung. Pt with poor IV access upon arrival, left midline placed by VAT RN Min. Pt voided large amount clear
yellow urine on bedpan. Pt's daughter at bedside, questions answered, Dr. Rivera in room to assess pt and update daughter. Call terry in hand, safe environment maintained.
--- NOTE | 2024-09-25 10:18 | W.PN.HOSP.TC ---
Today's Communication/Plan
-
Transfuse PRBCs
IV PPI
N.p.o.
GI consult
Hold diuretics
Augmentin through 09/26
Assessment / Plan
Assessment / Plan
#Acute hypoxemic respiratory insufficiency
#Right-sided transudative pleural effusion
#Acute on chronic HFpEF
-Status post course of IV Lasix for decompensated HFpEF; now on torsemide 10 mg daily, no GDMT
-Had chest x-ray performed 09/17 that showed moderate loculated right pleural effusion
-MRSA screen pending; blood culture NGTD; urine Legionella and streptococcal antigens negative
-Thoracentesis on 09/19 transudative per lights criteria and protein ratios; pH >7.4 low suspicion for empyema or parapneumonic
-Pulmonology following; started IV Zosyn after thoracentesis; repeat CT shows signs of multifocal pneumonia
-AFB and Pleural Cx neg; As of this morning requiring 1 L of O2 with SpO2 98%
Plan
-C/W PO augmentin to complete 7 day course; trend CBC and temperature curve
-Holding torsemide and acetazolamide for acidosis and BRANDON
-May consider resuming torsemide at 5 mg when needed
-Aspiration precautions, as needed nebs
-Serial chest x-ray to monitor effusion
-SpO2 goal > 90%
#BRANDON on CKD 3a
#Contraction alkalosis with respiratory acidosis
#Acidosis from acetazolamide
-Baseline creatinine in the range of 1.1-1.3; No chronic acidemia or signs of bone mineral disease
-Creatinine up to 1.7, as of 09/22, after IV diuresis; now holding acetazolamide and torsemide
-Suspect intravascular depletion in the context of diuresis, anemia; creatinine 1.5 as of 09/23
-Urine output of >1000 mL in the last 24 hours per I/Os; weight stable
Plan
-Holding torsemide due to BRANDON; holding acetazolamide due to acidemia
-Monitor urine output closely for signs of oliguria
-Avoid nephrotoxic agents
-Continue to monitor BMP
#UGIB
#Acute on chronic anemia
-Patient had melenic bowel movement overnight 09/24 into 09/25
-Received 1 unit PRBC earlier in hospital stay though workup negative
-iron studies and B vitamins without deficiency; reticulocyte 2.8%; LFTs normal; normal EPO
-Hemoglobin 5.4 after melena; 2 units PRBC ordered, will be s/p 3 units total here
-Consulted hematology, recommended checking EPO and SPEP
-Remains hemodynamically stable despite blood loss
Plan
-Start IV PPI bolus with 40 mg IV Q12 thereafter
-Follow-up SPEP for completeness
-Will continue to trend CBC, monitor for bleeding
-Transfuse for hemoglobin <7.0 or symptoms
-GI consult for consideration of EGD
#Hypervolemic hyponatremia
-Sodium as low as 125 here; associated with decompensated heart failure
-Nephrology following, s/p 1 dose of Samsca with sodium up to 140
-Continue to trend BMP
#Dyslipidemia
-No known ASCVD history, remains on statin therapy
#Primary hypertension
-No known history of hypertensive systemic diseases
-Home medications include nifedipine and hydralazine
-Blood pressure well-controlled
#Chronic RBBB
DVT prophylaxis: SCDs
Diet: N.p.o.
CODE STATUS: Full code
Daughter updated at bedside or by phone on 09/19, 09/20, 09/21, 09/22, 09/23, 09/24, 09/25
Anticipated Discharge: > 48 hours
Subjective/Interval History
-
Date of Service: September 25, 2024
Seen and examined at the bedside. From patient had melenic bowel movement overnight, hemoglobin found to be 5.4. 2 units PRBC ordered. AFVSS this morning
Renal function stable with creatinine 1.4�1.5. Patient denies any abdomen pain or other symptoms
Denies any other new complaints
Objective Data
-
Labs:
Laboratory Results
09/25/24 09/25/24
04:13 15:00
WBC 8.9
Hgb 5.4 L* D Pending
Hct 16.7 L* Pending
Plt Count 182
Sodium 135
Potassium 4.5
Chloride 97 L
Carbon Dioxide 36 H
BUN 89 H
Creatinine 1.5 H
Glucose 130 H
Calcium 8.5
Vital Signs:
Vital Signs
Temp Pulse Resp BP Pulse Ox
97.8 F 65 31 124/39 100
09/25/24 09:54 09/25/24 10:00 09/25/24 10:00 09/25/24 10:00 09/25/24 09:54
I&O
09/24/24 09/25/24 09/26/24
06:59 06:59 06:59
Intake Total 1070 / 1070 480 / 480 250 / 250
Output Total 1550 / 1550 950 / 950
Balance -480 / -480 -470 / -470 250 / 250
Review of Systems
-
History Source: Patient
All other systems: Reviewed and negative
Physical Exam
-
General: Well Developed, No Apparent Distress and Other (Frail-appearing)
HEENT: Normocephalic, Atraumatic and Moist Mucous Membranes
Respiratory: Crackles and Non Labored Respirations; Negative Wheezes, Rhonchi or Accessory Resp Muscle Use
Cardiac: Regular Rhythm and S1/S2; Negative Murmur, Rub or Gallop
GI: Soft, Nontender, Nondistended and Normal Bowel Sounds
Musculoskeletal: No Clubbing, No Cyanosis and No Edema
Skin: Warm, Dry and Normal Turgor; Negative Rash
Neuro: AO x 3 and Nonfocal/Grossly Intact; Negative Tremors
Psych: Calm
Data Reviewed
-
Labs: Labs Reviewed by me, Discussed with Physician (Gastroenterology), Discussed with Patient and Discussed with Family
--- NOTE | 2024-09-25 10:18 | PTCARENOTE ---
Received patient this am AAOx3. Flat affect. Pt stated ' that she feels weak'. Spoke to Dr. Rivera [id number] and updated him on patient events overnight. Patient had vomiting x1 and a black tarry stool, that was heme positive. Pt's Hgb this 5.4/16.7
First unit of blood currently infusing. Plan is to transfer patient to higher level of care. Report called an patient transferred to ICU.
--- NOTE | 2024-09-25 11:54 | PTCARENOTE ---
Pt keeps asking for water,this RN again reiterated NPO orders, daughter questioning RN, 'not even water? or in the drip?' referring to IVF. Education provided. Oral care with suction swab provided. Pt stating 'NO-I want water!' Emotional support
ongoing.
--- NOTE | 2024-09-25 12:30 | CON.GI ---
Consultation
-
Date/Time Consultation Requested: 09/25/24
Date/Time Consultation Performed: 09/25/24
Requesting Provider: Dr. Rivera
Performing Provider: Dr. Aguilar
Reason for Consultation: Melena
Medical History
Chief Complaint / HPI
Chief Complaint: Melena
History of Present Illness:
Jojo Denney is an 84 y.o. female with pmhx bradycardia and history of syncopal episodes, CKD heart failure with preserved ejection fraction admitted with acute decompensated heart failure w/ hospital course c/b hyponatremia, hypoxemic
respiratory failure with findings of right-sided transudative pleural effusion requiring thoracentesis, multifocal pneumonia and anemia. She was seen earlier in her hospitalization by hematology, hemoglobin noted to drop from 10.2 -->6.2 without
overt signs of GI bleeding. Etiology felt to be multifactorial, suspected acute on chronic kidney disease and a component of MARCIN. Hematology recommended ordering SPEP, EPO level and flow cytometry. She was transfused with 1 unit of PRBC on 09/21, when
her hemoglobin was 6.2, repeat was 8.3. She Hgb remained stable until yesterday, when Hgb went from 8.3 --> 7.6, now 5.4. Currently ordered for 2 units of PRBC. She was noted to have an episode of melena overnight, GI consulted for further
evaluation. She is on ASA 81mg but otherwise, no anticoagulation. No history of GI bleeding. She denies any abdominal pain.
Echo on 09/12/2024 showed preserved biventricular function with LVEF 60-65% with mild as moderate MR, and pulmonary hypertension with PASP 52 mmHg. There was normal LV diastolic function.
Past Medical History
Past Medical History: Other (History of bradycardia, hypercholesterolemia, RBBB, history of COVID-19, history of paroxysmal atrial tachycardia, history of syncopal episodes, CKD, hyperlipidemia, diastolic heart failure)
Past Surgical History:
Social History
Tobacco: Non-Smoker
Alcohol: None
Drug: None
Family History
Family History: Reviewed & Not Pertinent
Allergies / Home Medications
Allergy/AdvReac Type Severity Reaction Status Date / Time
No Known Allergies Allergy Verified 09/10/24 14:19
�Medication �Instructions �Recorded
multivitamin with folic acid 400 1 tab PO DAILY Supplement 04/13/20
mcg tablet (Tab-A-Luba)
hydralazine 25 mg tablet 50 mg (2 x 25 mg) PO BID #60 tabs 04/19/20
metoprolol succinate 25 mg 25 mg PO DAILY #30 tabs 04/19/20
tablet,extended release 24 hr
aspirin 81 mg chewable tablet 81 mg PO DAILY #30 tabs 06/17/22
atorvastatin 40 mg tablet 40 mg PO QPM #30 tabs 06/17/22
calcium carbonate 500 mg PO DAILY Supplement 04/24/24
nifedipine 30 mg tablet,extended 30 mg PO DAILY Blood Pressure 09/10/24
release 24 hr
omega 6-gnx-nkr-fish oil 1,000 mg 1 cap PO DAILY Supplement 09/10/24
(120 mg-180 mg) capsule (Fish Oil)
prednisolone 1 %-moxifloxacin 0.5 1 drp ophthalmic (eye) QID Eye 09/10/24
%-bromfenac 0.075 % eye drops susp Condition
sodium zirconium cyclosilicate 5 5 g PO DAILY Supplement 09/10/24
gram oral powder packet (Lokelma)
torsemide 5 mg tablet 5 mg PO DAILY Fluid 09/10/24
Retention/Swelling
Review of Systems
-
History Source: Patient, Family and Physician
All other systems: A 12 pt ROS was Negative except as stated above in HPI
Vital Signs
Temp Pulse Resp BP Pulse Ox
98.2 F 64 32 109/74 100
09/25/24 10:13 09/25/24 11:45 09/25/24 11:45 09/25/24 11:45 09/25/24 11:57
Physical Exam
Exam
General: No Apparent Distress and Other (Deconditioned)
HEENT: Normocephalic and Moist Mucous Membranes
GI: Soft, Non Tender, Non Distended and Normal Bowel Sounds
Results
WBC 8.9 10^3/uL (4.8-10.8) 09/25/24 04:13
Hgb 5.4 g/dL (12.0-16.0) L* D 09/25/24 04:13
Hct 16.7 % (37.0-47.0) L* 09/25/24 04:13
MCV 96.0 fL (81.0-99.0) 09/25/24 04:13
Plt Count 182 10^3/uL (130-400) 09/25/24 04:13
Absolute Neuts (auto) 7.4 10^3/uL (1.4-6.5) H 09/25/24 04:13
Sodium 135 mmol/L (135-145) 09/25/24 04:13
Potassium 4.5 mmol/L (3.5-5.1) 09/25/24 04:13
Chloride 97 mmol/L (98-107) L 09/25/24 04:13
Carbon Dioxide 36 mmol/L (22-30) H 09/25/24 04:13
BUN 89 mg/dl (7-17) H 09/25/24 04:13
Creatinine 1.5 mg/dL (0.6-1.0) H 09/25/24 04:13
Calcium 8.5 mg/dl (8.4-10.2) 09/25/24 04:13
Total Bilirubin 0.3 mg/dl (0.2-1.3) 09/23/24 06:48
AST 27 U/L (14-36) 09/23/24 06:48
ALT 22 U/L (0-35) 09/23/24 06:48
Alkaline Phosphatase 68 U/L (38-126) 09/23/24 06:48
Diagnostic Image Results:
Prior GI Procedures:
EGD:
Colonoscopy:
Assessment / Plan
-
Jojo Denney is an 84 y.o. female with pmhx bradycardia and history of syncopal episodes, CKD heart failure with preserved ejection fraction admitted with acute decompensated heart failure w/ hospital course c/b hyponatremia, hypoxemic
respiratory failure, transudative pleural effusion and anemia requiring blood transfusion, now with an episode of melena overnight and drop in hemoglobin.
#Melena with drop in drop in hemoglobin over the last 36 hours, 8.3 --> 7.6 --> 5.4. BUN has been elevated throughout her admission due to BRANDON on CKD, however, does appear to be increased compared to prior, 72 --> 89
-no obvious culprits for her bleeding, only on ASA 81mg
-transferred to IMU for closer monitoring
-check H&H q12
-PPI gtt
-active T&C, transfuse for Hgb <8 in setting of cardiac disease
-2 large peripheral gauge VIs
-remains hemodynamically stable
Her hemoglobin dropped to 5.4 this morning with an episode of melena, she was subsequently transfused with 2 units of PRBC and transferred to the IMU for closer monitoring. She has remained hemodynamically stable. I met with both daughter and
grandson at the bedside to discuss current concerns for active GI bleeding and plan moving forward. Given her hemodynamic stability and no repeated episodes of melena, we will continue to watch her closely for signs of rebleeding. If she continues
to require blood transfusions, has signs of overt GI bleeding or demonstrate signs of hemodynamic instability we will proceed with endoscopy to further evaluate. If she remains clinically stable in response to transfusions, will continue with
supportive care.
-
-
Thank you for consultation and allowing me to participate in the patient's care. Please call the investor relations manager GI physician during the after hours with any questions or concerns.
--- NOTE | 2024-09-25 12:53 | PTCARENOTE ---
2nd unit PRBCs completed, no s/s transfusion reaction. Pt still asking for water. Emotional support and education again provided.
--- NOTE | 2024-09-25 13:47 | W.PN.CARDCBS ---
Today's Communication / Plan
-
Stable cardiology status but still requiring oxygen
Diuretics on hold with GI bleeding and renal insufficiency
Being followed by nephrology, pulmonary, GI for new onset melena
Impression / Plan
-
PCP: Dr. Lindsay Machado
Primary Supervisor [employer]: Dr. Regalado
Assessment:
Melena with anemia requiring transfusion
Acute heart failure with preserved EF
CKD
Right pleural effusion/ status post thoracentesis with 400 cc on 09/19; negative for malignancy; transudative likely secondary to heart failure
Pneumonia
Chronic hyponatremia
AoC anemia requring transfusion
CAD on CT imaging with NSTEMI during COVID-pneumonia May 2022
Hyperkalemia with lisinopril
Hypertension
Paroxysmal atrial tachycardia
History of bradycardia
Hypercholesterolemia
Right bundle branch block
Echocardiogram 09/22/2024: Ejection fraction 60 to 65%, mild to moderate MR, mild TR with PA systolic of 45-50 mmHg
Echocardiogram 09/12/2024: Ejection fraction 60 to 65%, mild to moderate MR, PA systolic 52 mmHg
Echo April 2024, EF 71%, mild LVH, mild MR, mild TR with PA pressure 30
Lexiscan nuclear stress test August 13, 2022 with fixed inferior defect and no ischemia. EF 6
Plan:
She was transferred to IMU with melena and anemia requiring transfusion
GI has been consulted
She remains stable from cardiology viewpoint but still requiring low level of oxygen
Diuretics remain on hold per nephrology input but stable creatinine of 1.5
Daughter declines right heart catheterization
She may need home oxygen
Pulmonary is also following patient
Continue antibiotics for pneumonia
PAT stable on higher dose of Toprol
Progress Note - Supervisor [employer]
Subjective
Date of Service: September 25, 2024
No complaints
Objective
Labs:
09/25/24 04:13
Labs
Hgb 5.4 g/dL (12.0-16.0) L* D 09/25/24 04:13
Hct 16.7 % (37.0-47.0) L* 09/25/24 04:13
Plt Count 182 10^3/uL (130-400) 09/25/24 04:13
Sodium 135 mmol/L (135-145) 09/25/24 04:13
Potassium 4.5 mmol/L (3.5-5.1) 09/25/24 04:13
BUN 89 mg/dl (7-17) H 09/25/24 04:13
Creatinine 1.5 mg/dL (0.6-1.0) H 09/25/24 04:13
Glucose 130 mg/dl (70-99) H 09/25/24 04:13
Vital Signs and I&O:
Vital Signs
Temp Pulse Resp BP Pulse Ox
98.8 F 61 13 141/48 100
09/25/24 12:38 09/25/24 12:38 09/25/24 12:38 09/25/24 12:38 09/25/24 12:38
Vital Signs
Temp Pulse Resp BP Pulse Ox
98.8 F 61 13 141/48 100
09/25/24 12:38 09/25/24 12:38 09/25/24 12:38 09/25/24 12:38 09/25/24 12:38
Intake & Output
09/23/24 09/24/24 09/25/24 09/26/24
06:59 06:59 06:59 06:59
Intake Total 1180 / 1180 1070 / 1070 480 / 480 500 / 500
Output Total 1050 / 1050 1550 / 1550 950 / 950
Balance 130 / 130 -480 / -480 -470 / -470 500 / 500
Physical Exam
Physical Exam
General: Well developed, well nourished in NAD.
Neck: Supple, no JVD, HJR, carotids +2 B/L, no bruits bilaterally.
Heart: Non displaced PMI, RRR, no murmurs, No S3, S4, no rubs.
Lungs: Scattered rhonchi at the bases
Extremities: No clubbing, cyanosis or edema bilaterally.
Neuro: Grossly nonfocal, awake, alert and oriented x3.
--- NOTE | 2024-09-25 14:10 | W.PN.NEPH.PH ---
Today's Communication / Plan
-
Trend hemoglobin
Hold diuretics
Assessment/Plan
-
IMP:
Acute on chr HFpEF
Chronic hyponatremia
CKD [id number] cr 1.2-1.3
PAT
HTN
Chronic normocytic anemia
Hyperlipidemia
Essential hypertension
Constipation
proteinuria-1.7gm/gm of cr
Plan:
A/w CHF, fluid restriction 1440 mL/day
Patient remains hemodynamically stable
Respiratory acidosis and metabolic acidosis per review of ABG (predominantly respiratory)
Moderate right effusion s/p thoracentesis 400cc 09/19
We will withhold diuretics as creatinine escalated to 1.7
Volume status is in question right heart cath may need to be investigated,repeat echo today
CT scan of abdomen and pelvis does not reveal hydronephrosis
Repeat echo from 09/22 shows ejection fraction 60 to 65% pulmonary artery pressure 45-50. No significant change in echocardiogram from September 12
Creatinine stable at 1.5.
Holding diuretics again today.
Status post drop in hemoglobin less than 6 and a GI bleed and transferred to the ICU.
She is otherwise a comfortable.
The patient is awaiting potential transfer to [place] potentially per patient's family request
Total Time Spent with Patient (in minutes): 31
-
-
Date of Service: September 25, 2024
CC / HPI / ROS
-
Chief Complaint:
Shortness of breath and CHF
History of Present Illness:
Patient with more chronic kidney disease CHF presents with shortness of breath
Creatinine stable improved
s/p thoracentesis 400cc 09/19
Review of Systems:
Weights are unchanged
non oliguric
Labs
-
Labs:
WBC 8.9 10^3/uL (4.8-10.8) 09/25/24 04:13
RBC 1.74 10^6/uL (4.20-5.40) L 09/25/24 04:13
Plt Count 182 10^3/uL (130-400) 09/25/24 04:13
Sodium 135 mmol/L (135-145) 09/25/24 04:13
Potassium 4.5 mmol/L (3.5-5.1) 09/25/24 04:13
Chloride 97 mmol/L (98-107) L 09/25/24 04:13
Carbon Dioxide 36 mmol/L (22-30) H 09/25/24 04:13
BUN 89 mg/dl (7-17) H 09/25/24 04:13
Creatinine 1.5 mg/dL (0.6-1.0) H 09/25/24 04:13
eGFR 34.15 09/25/24 04:13
Glucose 130 mg/dl (70-99) H 09/25/24 04:13
Calcium 8.5 mg/dl (8.4-10.2) 09/25/24 04:13
[id number] Pept 74811 pg/ml 09/13/24 06:58
Albumin 2.9 g/dl (3.5-5.0) L 09/23/24 06:48
Physical Exam
-
Vital Signs:
Vital Signs
Temp Pulse Resp BP Pulse Ox
98.8 F 61 13 141/48 100
09/25/24 12:38 09/25/24 12:38 09/25/24 12:38 09/25/24 12:38 09/25/24 12:38
Cardiovascular:: Regular rate and rhythm
Respiratory:: Bilateral: Coarse
Lung Excursion:: Normal
Abdomen:: Nontender and Soft
Bowel Sounds:: Normal
Extremity Edema:: +1: Bilateral:
De Oliveira Catheter: No
[2024-09-25 16:03] LABS: Hematocrit 26.9 % (37.0-47.0); Hemoglobin 9.1 g/dL (12.0-16.0)
--- NOTE | 2024-09-25 16:23 | PTCARENOTE ---
H+H result noted (9.1/26.9) and discussed with , per GI and bright ap[place]aca for sips of clears.
--- NOTE | 2024-09-25 17:31 | PTCARENOTE ---
Addendum entered by Orville Lipscomb RN 09/25/24 17:33:
+1 edema noted to hands and around eyes. rings sl tight on fingers, ROM demonstrated and encouraged.
Original Note:
Clear liquid diet ordered by attending, dinner order placed by RN. Pt removed SCDs -refuses to allow RN to replace. Eduction provided.
[2024-09-25] MEDS: LIPITOR 40 MG PO (17:32)
--- NOTE | 2024-09-25 19:15 | PTCARENOTE ---
Patient received lying in bed, awake, alert and oriented watching TV. Daughter Thomas is at the bedside. Patient is without apparent signs of distress or discomfort. She denies pain, she denies CP or SOB. Sats 100% on 1L/nc. BBS with bases diminished
and fine scattered crackles t/o except JASON clear. Positive pulses x 4 extremities. Abdomen soft and nontender with positive bowel sounds. SR with 1st degree AVB and BBB, short run of PAT noted. S1S2 regular with positive murmur. Left arm midline
flushes easily. Right AC SL flushes easily. Swallows pills without difficulty. Fluid restriction maintained. Patient has poor eye contact and flat affect but is appropriate. Bed in low and locked position, call terry within reach.
[2024-09-25] MEDS: NSS (PRESERVATIVE FREE) 10 ML IV (19:37)
[2024-09-25] MEDS: SENOKOT-S 1 TABLET PO (19:38)
[2024-09-25] MEDS: PROTONIX IV 40 MG IV (19:38)
[2024-09-25] MEDS: MELATONIN 5 MG PO (22:49)
[2024-09-26] VITALS (17 sets, daily range): BP systolic 109–128; BP diastolic 36–60; PULSE 62; O2SAT 98; BMI 21.4; BMI 21.6
[2024-09-26 04:11] LABS: Free Kappa Light Chains,Quant 60.65 mg/L (3.30-19.40); Free Lambda Light Chains,Quant 39.38 mg/L (5.71-26.30); IgA 108 mg/dL (68-408); IgG 861 mg/dL (768-1632); IgM 55 mg/dL (35-263); Immunofixation Electrophoresis IFE Done; Kappa/Lambda Fr Light Ratio 1.54 (0.26-1.65); Total Protein-Electrophoresis 5.3 g/dL (6.3-8.2)
[2024-09-26 06:02] LABS: Blood Urea Nitrogen 81 mg/dl (7-17); Calcium 8.8 mg/dl (8.4-10.2); Carbon Dioxide 35 mmol/L (22-30); Chloride 102 mmol/L (98-107); Estimated Creatinine Clearance 24 ml/min; Glucose 97 mg/dl (70-99); Potassium 4.6 mmol/L (3.5-5.1); Sodium 137 mmol/L (135-145)
[2024-09-26 06:54] LABS: % Basophils 0.4 % (0-2); % Immature Granulocytes 3.3 % (0-0.5); % Lymphocytes 7.6 % (20.5-51.1); % Monocytes 8.1 % (1.7-9.3); % Neutrophils 78.6 % (42.2-75.2); Absolute Eosinophils 0.2 10^3/uL (0-0.7); Absolute Immature Granulocytes 0.4 10^3/uL (0-0.05); Absolute Lymphocytes 0.8 10^3/uL (1.2-3.4); Absolute Monocytes 0.9 10^3/uL (0.1-0.6); Absolute Neutrophils 8.4 10^3/uL (1.4-6.5); Hematocrit 26.8 % (37.0-47.0); Hemoglobin 9.1 g/dL (12.0-16.0); Mean Corpuscular Hgb 30.3 pg (27.0-31.0); Mean Corpuscular Volume 89.3 fL (81.0-99.0); Mean Platelet Volume 12.2 fL (7.4-10.4); Platelet Count 133 10^3/uL (130-400); Red Cell Dist. Width 16.5 % (11.5-14.5); White Blood Cell Count 10.7 10^3/uL (4.8-10.8)
--- NOTE | 2024-09-26 07:05 | PTCARENOTE ---
Report given verbally to [place] gupta RN. Questions answered.
--- NOTE | 2024-09-26 07:46 | W.PN.GI.CBS2 ---
Today's Communication / Plan
-
No melena overnight. Hgb remains stable. Okay to advance diet. GI will sign off, please call back if concerned for recurrent/active GI bleeding.
Assessment / Plan
-
Jojo Denney is an 84 y.o. female with pmhx bradycardia and history of syncopal episodes, CKD heart failure with preserved ejection fraction admitted with acute decompensated heart failure w/ hospital course c/b hyponatremia, hypoxemic
respiratory failure, transudative pleural effusion and anemia requiring blood transfusion, now with an episode of melena and drop in hemoglobin.
#Melena w/ concern for UGIB--8.3 --> 7.6 --> 5.4, she was transfused with 2 units of PRBC on 09/25 with improvement to Hgb 9.1. Repeat Hgb today is 9.1 without further episodes of melena/hematochezia noted. BUN has been elevated throughout her
admission due to BRANDON on CKD, however, does appear to be increased compared to prior, 72 --> 89--> 81
-no obvious culprits for her bleeding, only on ASA 81mg
-transferred to IMU for closer monitoring
-check H&H q12
-PPI IV BID-- recommend continuing BID for 72 hours then transition to 40mg PO once daily
-active T&C, transfuse for Hgb <8 in setting of cardiac disease
-2 large peripheral gauge VIs
-remains hemodynamically stable
Given stable hemoglobin, without episodes of bleeding overnight/signs of hemodynamic instability, no plans for endoscopic evaluation, which was the plan when discussed with patient's daughter and grandson yesterday at the bedside. Okay to advance to
diet. GI will sign off, please call with questions or concerns for recurrent/active GI bleeding.
Subjective
Subjective
Date of Service: September 26, 2024
Hemoglobin stable this morning at 9.1, repeat hemoglobin following 2 units of blood transfusion was 9.1 yesterday. No episodes of melena overnight.
Objective
Data Reviewed
Laboratory Data:
Laboratory Results
09/26/24 05:18
09/26/24 05:18
Laboratory Results
Magnesium 2.8 mg/dl (1.6-2.3) H 09/23/24 06:48
Total Bilirubin 0.3 mg/dl (0.2-1.3) 09/23/24 06:48
AST 27 U/L (14-36) 09/23/24 06:48
ALT 22 U/L (0-35) 09/23/24 06:48
Alkaline Phosphatase 68 U/L (38-126) 09/23/24 06:48
Vital Signs and I&O:
Vital Signs
Temp Pulse Resp BP Pulse Ox
98.3 F 63 22 123/47 99
09/25/24 23:01 09/26/24 06:00 09/26/24 06:00 09/26/24 06:00 09/26/24 06:00
I&O
09/25/24 09/26/24 09/27/24
06:59 06:59 06:59
Intake Total 480 / 480 575 / 575
Output Total 950 / 950 800 / 800
Balance -470 / -470 -225 / -225
Physical Exam
Physical Exam
HEENT: Anicteric and Moist mucous membranes
GI: Soft, Non Distended and Non Tender
--- NOTE | 2024-09-26 08:35 | W.PN.NEPH.PH ---
Today's Communication / Plan
-
follow BMP
Assessment/Plan
-
IMP:
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
Chronic hyponatremia
CKD [id number] cr 1.2-1.3
PAT
HTN
Chronic normocytic anemia
Hyperlipidemia
Essential hypertension
Constipation
proteinuria-1.7gm/gm of cr
Plan:
A/w CHF, fluid restriction 1440 mL/day
follow BMP, stable
holding diuretics as she appears euvolemic
RHC not needed currently
-
-
Date of Service: September 26, 2024
CC / HPI / ROS
-
Chief Complaint:
Shortness of breath and CHF
History of Present Illness:
Cr stable at 1.4
Hgb up to 9.1 after transfusion
s/p thoracentesis 400cc 09/19
Review of Systems:
Weights are unchanged
non oliguric
no CP/SOB
Labs
-
Labs:
WBC 10.7 10^3/uL (4.8-10.8) 09/26/24 05:18
RBC 3.00 10^6/uL (4.20-5.40) L 09/26/24 05:18
Hgb 9.1 g/dL (12.0-16.0) L 09/26/24 05:18
Hct 26.8 % (37.0-47.0) L 09/26/24 05:18
Plt Count 133 10^3/uL (130-400) D 09/26/24 05:18
Sodium 137 mmol/L (135-145) 09/26/24 05:18
Potassium 4.6 mmol/L (3.5-5.1) 09/26/24 05:18
Chloride 102 mmol/L (98-107) 09/26/24 05:18
Carbon Dioxide 35 mmol/L (22-30) H 09/26/24 05:18
BUN 81 mg/dl (7-17) H 09/26/24 05:18
Creatinine 1.4 mg/dL (0.6-1.0) H 09/26/24 05:18
eGFR 37.10 09/26/24 05:18
Glucose 97 mg/dl (70-99) 09/26/24 05:18
Calcium 8.8 mg/dl (8.4-10.2) 09/26/24 05:18
Bfi-H-Bduvpukzifu Pept 91846 pg/ml 09/13/24 06:58
Albumin 2.9 g/dl (3.5-5.0) L 09/23/24 06:48
Physical Exam
-
Vital Signs:
Vital Signs
Temp Pulse Resp BP Pulse Ox
98.3 F 63 22 123/47 99
09/25/24 23:01 09/26/24 06:00 09/26/24 06:00 09/26/24 06:00 09/26/24 06:00
Cardiovascular:: Regular rate and rhythm
Respiratory:: Bilateral: Coarse
Lung Excursion:: Normal
Abdomen:: Nontender and Soft
Bowel Sounds:: Normal
Extremity Edema:: None: Bilateral:
--- NOTE | 2024-09-26 08:41 | W.PN.CARDCBS ---
Today's Communication / Plan
-
Trial off nasal cannula O2
Increase activity
Monitor H&H
Continue to diuretics per nephrology
Okay from a cardiac standpoint to downgrade to telemetry
Impression / Plan
-
PCP: Dr. Lindsay Machado
Primary Bass Singer: Dr. Regalado
Assessment:
Melena with anemia requiring transfusion
Acute heart failure with preserved EF
CKD
Right pleural effusion/ status post thoracentesis with 400 cc on 09/19; negative for malignancy; transudative likely secondary to heart failure
Pneumonia
Chronic hyponatremia
AoC anemia requring transfusion
CAD on CT imaging with NSTEMI during COVID-pneumonia May 2022
Hyperkalemia with lisinopril
Hypertension
Paroxysmal atrial tachycardia
History of bradycardia
Hypercholesterolemia
Right bundle branch block
Echocardiogram 09/22/2024: Ejection fraction 60 to 65%, mild to moderate MR, mild TR with PA systolic of 45-50 mmHg
Echocardiogram 09/12/2024: Ejection fraction 60 to 65%, mild to moderate MR, PA systolic 52 mmHg
Echo April 2024, EF 71%, mild LVH, mild MR, mild TR with PA pressure 30
Lexiscan nuclear stress test August 13, 2022 with fixed inferior defect and no ischemia. EF 6
Plan:
She was transferred to IMU 09/25 with melena and acute blood loss anemia requiring 2untis PBCS
-Hemodynamically stable
-GI has been consulted and signed off with no procedures planned
-Diet resumed
-PPI
-Hemoglobin posttransfusion today 9.1 g/dL.
-Defer treatment of anemia to GI and hematology
Heart failure with preserved ejection fraction
-She remains stable from cardiology viewpoint but still requiring low level of oxygen
-Nursing to do trial off O2 today
-Diuretics remain on hold per nephrology input but stable creatinine of 1.4
-At this point no clear benefit for right heart catheterization and family reportedly declined last week
-Consider restarting torsemide at 5 mg daily
History of PAT�stable on higher doses of metoprolol.
Hypertension�blood pressure stable on current medical therapy
Chronic renal insufficiency�Case reviewed with nephrology and will continue to hold diuretics at this time
Pneumonia
-Pulmonary is following
-She may need home oxygen
-Continue antibiotics for pneumonia
From a cardiac standpoint could be downgraded to telemetry
Progress Note - Bass Singer
Subjective
Date of Service: September 26, 2024
Seen and examined with nursing at bedside. Events overnight reviewed.
Objective
Labs:
09/26/24 05:18
09/26/24 05:18
Labs
Hgb 9.1 g/dL (12.0-16.0) L 09/26/24 05:18
Hct 26.8 % (37.0-47.0) L 09/26/24 05:18
Plt Count 133 10^3/uL (130-400) D 09/26/24 05:18
Sodium 137 mmol/L (135-145) 09/26/24 05:18
Potassium 4.6 mmol/L (3.5-5.1) 09/26/24 05:18
BUN 81 mg/dl (7-17) H 09/26/24 05:18
Creatinine 1.4 mg/dL (0.6-1.0) H 09/26/24 05:18
Glucose 97 mg/dl (70-99) 09/26/24 05:18
Vital Signs and I&O:
Vital Signs
Temp Pulse Resp BP Pulse Ox
98.3 F 63 22 123/47 99
09/25/24 23:01 09/26/24 06:00 09/26/24 06:00 09/26/24 06:00 09/26/24 06:00
Vital Signs
Temp Pulse Resp BP Pulse Ox
98.3 F 63 22 123/47 99
09/25/24 23:01 09/26/24 06:00 09/26/24 06:00 09/26/24 06:00 09/26/24 06:00
Intake & Output
09/24/24 09/25/24 09/26/24 09/27/24
06:59 06:59 06:59 06:59
Intake Total 1070 / 1070 480 / 480 575 / 575
Output Total 1550 / 1550 950 / 950 800 / 800
Balance -480 / -480 -470 / -470 -225 / -225
Physical Exam
Physical Exam
GEN: No distress, awake, alert
HEENT: supple, anicteric, mmm, eomi
LUNGS: Decreased BS RLB, no wheezes
CV: Reg, S1/S2, 1/6 SM
EXT: No cyanosis, clubbing, edema
[2024-09-26] MEDS: MIRALAX PO (08:50)
[2024-09-26] MEDS: NSS (PRESERVATIVE FREE) 10 ML IV ×2 (08:50→19:59)
[2024-09-26] MEDS: PROTONIX IV 40 MG IV ×2 (08:50→19:59)
[2024-09-26] MEDS: PROCARDIA XL (EXTENDED RELEASE) 30 MG PO (08:51)
[2024-09-26] MEDS: AUGMENTIN 500 MG/125 MG 1 TABLET PO ×2 (08:52→19:59)
[2024-09-26] MEDS: THERAGRAN 1 TABLET PO (08:52)
[2024-09-26] MEDS: SENOKOT-S 1 TABLET PO ×2 (08:52→19:59)
[2024-09-26] MEDS: TOPROL XL 25 MG PO ×2 (08:53→19:59)
[2024-09-26] MEDS: APRESOLINE 50 MG PO ×2 (09:00→19:58)
--- NOTE | 2024-09-26 11:33 | W.PN.HOSP.TC ---
Addendum entered and electronically signed by Marky Toribio MD 09/26/24 14:37:
Repeat H/H down to 8.
GI updated and will await further recs.
will keep IMU level of care for now
Addendum entered and electronically signed by Marky Toribio MD 09/26/24 13:56:
Per RN, Pt had a large melanotic stool heme positive.
Repeat H/H pending.
Also to inform GI
BP stable
Original Note:
Today's Communication/Plan
-
tx to tele
trend hgb
restart diuretics per nephor
trend cbc
wean o2
Assessment / Plan
Assessment / Plan
#Acute hypoxemic respiratory insufficiency
#Right-sided transudative pleural effusion
# Multifocal pneumonia most pronounced in right lower lobe
-Status post course of IV Lasix for decompensated HFpEF; now on torsemide 10 mg daily, no GDMT
-Had chest x-ray performed 09/17 that showed moderate loculated right pleural effusion
-MRSA screen pending; blood culture NGTD; urine Legionella and streptococcal antigens negative
-Thoracentesis on 09/19 transudative per lights criteria and protein ratios; pH >7.4 low suspicion for empyema or parapneumonic
-Pulmonology following; started IV Zosyn after thoracentesis; repeat CT shows signs of multifocal pneumonia
-AFB and Pleural Cx neg;
-C/W PO augmentin to complete 7 day course; trend CBC and temperature curve
-Aspiration precautions, as needed nebs
-Serial chest x-ray to monitor effusion prn
-SpO2 goal > 90%
#Acute on chronic HFpEF
Diuretics on hold
Restart torsemide per nephrology
#BRANDON on CKD 3a
#Contraction alkalosis with respiratory acidosis
#Acidosis from acetazolamide
-Baseline creatinine in the range of 1.1-1.3; No chronic acidemia or signs of bone mineral disease
-Creatinine up to 1.7, as of 09/22, after IV diuresis; now holding acetazolamide and torsemide
-Cr improved to 1.4
-Holding torsemide -Monitor urine output closely for signs of oliguria
-Avoid nephrotoxic agents
-Continue to monitor BMP
-restart per nephro. agree can hold off on RHC
#UGIB
#Acute on chronic anemia
-Patient had melenic bowel movement overnight 09/24 into 09/25
-Received 1 unit PRBC earlier in hospital stay though workup negative
-iron studies and B vitamins without deficiency; reticulocyte 2.8%; LFTs normal; normal EPO
-Hemoglobin 5.4 after melena; 2 units PRBC ordered, will be s/p 3 units total here
-Consulted hematology, recommended checking EPO and SPEP
-Remains hemodynamically stable despite blood loss
-IV PPI
-Follow-up SPEP for completeness-normal
-Will continue to trend CBC, monitor for bleeding
-Transfuse for hemoglobin <7.0 or symptoms
-GI signed off.
#Hypervolemic hyponatremia
-Sodium as low as 125 here; associated with decompensated heart failure
-Nephrology following, s/p 1 dose of Samsca with sodium up to 140
-Continue to trend BMP
#Dyslipidemia
-No known ASCVD history, remains on statin therapy
#Primary hypertension
-No known history of hypertensive systemic diseases
-Home medications include nifedipine and hydralazine
-Blood pressure well-controlled
#Chronic RBBB
DVT prophylaxis: SCDs
CODE STATUS: Full code
tx to tele
Discussed with pulmonary
called daughter to update but no response and went to voicemail. Left message for callback.
Anticipated Discharge: 24 - 48 hours
Subjective/Interval History
-
Date of Service: September 26, 2024
feeling better-but tired little bit
on 1-2L oxygen
Objective Data
-
Labs:
Laboratory Results
09/26/24
05:18
WBC 10.7
Hgb 9.1 L
Hct 26.8 L
Plt Count 133 D
Sodium 137
Potassium 4.6
Chloride 102
Carbon Dioxide 35 H
BUN 81 H
Creatinine 1.4 H
Glucose 97
Calcium 8.8
Vital Signs:
Vital Signs
Temp Pulse Resp BP Pulse Ox
97.6 F 86 29 114/45 99
09/26/24 11:06 09/26/24 08:51 09/26/24 08:51 09/26/24 08:51 09/26/24 09:09
I&O
09/25/24 09/26/24 09/27/24
06:59 06:59 06:59
Intake Total 480 / 480 575 / 575
Output Total 950 / 950 800 / 800
Balance -470 / -470 -225 / -225
Physical Exam
-
General: Well Developed, No Apparent Distress and Other (Frail-appearing)
HEENT: Normocephalic, Atraumatic, Moist Mucous Membranes and Oxygen
Respiratory: Non Labored Respirations and Decreased Breath Sounds; Negative Wheezes, Rhonchi or Accessory Resp Muscle Use
Cardiac: Regular Rhythm and S1/S2; Negative Murmur, Rub or Gallop
GI: Soft, Nontender, Nondistended and Normal Bowel Sounds
Musculoskeletal: No Clubbing, No Cyanosis and No Edema
Skin: Warm, Dry and Normal Turgor; Negative Rash
Neuro: AO x 3 and Nonfocal/Grossly Intact; Negative Tremors
Psych: Calm
--- NOTE | 2024-09-26 13:28 | W.PN.PUL3 ---
Today's Communication / Plan
-
- Pulmonary team will sign off, please call if needed
- Recommend total 7 days of antibiotics for pneumonia
-Diuresis per cardiology and nephrology team
Assessment
-
Assessment: 84-year-old female non-smoker with a past medical history of COVID-19, CKD, chronic HFpEF, history of bradycardia and history of syncopal episodes who presented from home with shakiness and weakness. She also had facial swelling with
leg edema and shortness of breath. She had worsening shortness of breath with orthopnea and thus brought her to the ER. She had admitted to drinking more water prior to arrival with a diet that was somewhat high in salt. She was admitted on
09/10/2024 for an acute HFpEF exacerbation with initial CXR showing a suspected pneumonia at the left base. Initial WBC was 10.5 with initial proBNP of 5430. She was treated in the ER with 40 mg IV Lasix and then admitted to telemetry for suspected
CHF exacerbation. She had no infectious symptoms and procalcitonin was negative (<0.05), hence no antibiotics were started. Cardiology consulted and she was continued with torsemide which improved her clinically, and also got 40mg IV lasix on
09/10-09/11. Her creatinine slowly worsened and nephrology was consulted. Echo on 09/12/2024 showed preserved biventricular function with LVEF 60-65% with mild as moderate MR, and pulmonary hypertension with PASP 52 mmHg. There was normal LV
diastolic function. She also developed hyponatremia with sodium alec 125 mmol/L - received tolvaptan 7.5 mg on 09/13. Patient started to require supplemental oxygen on 09/13 up to 2 L/min, and had SOB when she laid on her left side. CXR on the
evening of 09/13 showed a large right-sided pleural effusion which was new compared to CXR from 3 days prior. Chest ultrasound performed on 09/14 showed a small pleural effusion on the left and a more moderate-sized effusion on the right with what
appears to be septations on the US images. She did receive 60 mg IV Lasix on 09/15. CXR on 09/17 showed persistent/slightly worsening right-sided pleural effusion with suggested loculation. Patient is pending IR thoracentesis. Pulmonary service
now consulted for additional management/recommendations.
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
Impression:
#Right sided, Pleural effusion. Initial CXR on 09/10 was without any effusion, first noted on CXR on 09/13.
s/p Thoracentesis 09/19, 400 ml sero-sanguinous fluid. Pseudo-exudate with Serum Protein-Pleural protein gradient >3.2. Heart failure appears to be the etiology
-Negative cytology. Negative culture so far.
-Continue diuretics
-f/u CT Chest 09/21: 'There is increased small right pleural effusion with new trace left pleural effusion and adjacent atelectasis. There are stable scattered opacities including the left lower lobe which may be infectious/inflammatory nature and
may represent pneumonia.'
-Effusions are small, fairly asymptomatic, monitor for now. If she develops any dyspnea or effusions get larger, will consider repeat Thoracentesis
-Volume management is very challenging with worsening renal function and concomitant CHF
-Underlying Pulmonary HTN can also cause pleural effusions
-CXR on 09/23 as well as Bedside POCUS, only trace right sided effusion noted
-Follow-up chest x-ray today 09/26, pulmonary edema resolved without any residual right-sided pleural effusion, only trace left-sided pleural effusion noted.
# Multi-focal pneumonia, most pronounced in RLL
-Started on Zosyn, follow up cultures. Transitioned to Augmentin. Recommend total of 7 days of antibiotics
-Need f/u CT in 6-8 weeks to ensure resolution and normal underlying parenchyma, no h/o smoking
-Will arrange out patient follow up with Pulmonary clinic
#Acute HFpEF exacerbation with worsened Pulmonary HTN
-PA pressure up to 52 on recent ECHO compared from 30 in the past. Suspect Group II with CHF exacerbation
-Continue O2 support to avoid hypoxia
-Out patient follow up with cardiology
#Acute respiratory failure with hypoxia due to above
-O2 as needed
Other pertinent diagnoses:
-Melena, Hb stable now, on PPI BID
-BRANDON with CKD III
-HTN
Total time spent on this consultation/encounter _35_ minutes which includes review of history, physical exam, medications, laboratory data, personal review of imaging, extensive review of outpatient records, discussion with care team and respiratory
therapy.
Data:
CT Chest 08/2024: Interval improvement within the right-sided pleural effusion with trace residual right-sided pleural effusion. No pneumothorax.
There is bilateral lower lobe bronchial wall thickening with bilateral lower lobe nodular opacities/consolidations which represent atelectasis, however is suspicious for multifocal pneumonia. Additionally there are ground glass opacities within the
right middle and upper lobes which may be infectious/inflammatory. Recommend follow-up to ensure resolution.
Diffuse hypoattenuation of the mediastinal blood pool which can be seen with anemia.
CXR 09/17/2024:
Progressed findings suggesting a loculated moderate right pleural effusion.
Moderate opacification of the right lower lung field concerning for right lower lobe pneumonia. Stable
Cardiomegaly. Stable
ECHO 08/2024: Normal LV wall thickness. Normal left ventricular chamber size. Normal left
ventricular systolic function. Left ventricular ejection fraction is 60-65% by
visual assessment. Normal diastolic function.
Mitral valve opens normally. Thickened mitral valve leaflets. Mild to moderate
mitral regurgitation.
Tricuspid valve opens normally. Mild tricuspid regurgitation. Estimated
pulmonary artery pressure of 52 mmHg, assuming a right atrial pressure of 3
mmHg.
Since echo April 2024, PA systolic pressure is increased from 30 mmHg to 52
mmHg.
Subjective Data
-
Date of Service:
Date of Service: September 26, 2024
Subjective:
Patient lying flat in bed, no orthopnea, cough, shortness of breath or chest pain.
Review of Systems
Genitourinary: Other (No new symptoms reported.)
Objective Data
Data Reviewed
Vital Signs / I&O / Oxygen:
Vital Signs
Temp Pulse Resp BP Pulse Ox
97.6 F 62 23 122/44 100
09/26/24 11:06 09/26/24 12:00 09/26/24 12:00 09/26/24 12:00 09/26/24 12:00
Intake and Output
09/25/24 09/26/24 09/27/24
06:59 06:59 06:59
Intake Total 480 / 480 575 / 575
Output Total 950 / 950 800 / 800
Balance -470 / -470 -225 / -225
SaO2 100
Nasal Cannula flow liters per 2
minute
Physical Exam
General: Comfortable
HEENT: Normocephalic and Other (Pale conjunctiva)
Cardiovascular: S1-S2 and Regular Rhythm
Respiratory: Clear, Non-Labored Respirations and Other (Good air entry both sides, no pleuritic discomfort, pain or rales on exam.)
GI: Soft and Non Distended
Neurology: Awake and Alert
Skin: Warm
Labs/Micro/Reports
Lab Data
09/26/24 05:18
09/26/24 05:18
Microbiology
09/19/24 07:44 Blood/Venous Blood Culture - Final
No Growth - Final Report
[2024-09-26 14:11] LABS: Hematocrit 24.7 % (37.0-47.0)
--- NOTE | 2024-09-26 14:31 | W.PN.UPDATE ---
Addendum entered and electronically signed by CHUY Krishna 09/26/24 15:08:
updated daughter Thomas on bleeding and hgb. Will resp issues during admission would still like to hold off but if continued drop in hbg or black stool would reassess in AM need for EGD but will need to review with family prior to proceeding. Pt
denies nausea, abdominal pain or dizziness.
Original Note:
Update Note
Progress Note Update
Asked to reassess with recurrent + black stool. noted on admission with melena with drop in hbg requiring transfusion down to 5.4. hbg improved 9.1 this am with total of 3 units required/. Repeat hbg 8.0 this afternoon. no anticoagulation
but has been on miralax and senna. cont PPI. cont to monitor stools. Dr. Aguilar reviewed with family 09/25 holding on EGD. for repeat H/H 2100. Will make NPO for am if further melena and drop hbg will need to review again with family if need
to proceed.
Laboratory Tests
09/25/24 09/25/24 09/26/24
04:13 15:14 05:18
Hgb 5.4 L* D 9.1 L D 9.1 L
09/26/24
13:58
Hgb 8.0 L
--- NOTE | 2024-09-26 15:14 | PTCARENOTE ---
Pt received in bed @ 0700. AAOx3. Denies pain or discomfort. SaO2 99% on 2L NC. Trialed on room air; SaO2 slowly to 85%. 2L NC reapplied and SaO2 janet back to 99%. Portable CXR obtained. Pt ambulating with assist x1, OOB to chair for 2 hours. No
oxygen saturations observed with ambulation on 2L NC. Pt continent of large black bowel movement. Hospitalist and GI notified. Hgb drawn and sent, resulting 8.0. New order for NPO tomorrow to evaluate need for EGD. Repeat H&H ordered for 21:00.
[2024-09-26] MEDS: LIPITOR 40 MG PO (18:07)
[2024-09-26 21:24] LABS: Hematocrit 24.1 % (37.0-47.0)
--- NOTE | 2024-09-26 21:25 | PTCARENOTE ---
Pt received from previous shift OOB --> chair. Family present. AAOx3, flat, withdrawn. Limited Tajik but able to make basic needs known. Telemetry = SR/BBC/PACs. Full physical assessment documented (refer to worklist). Pt's daughter gave pt
eye gtts. Instructed on hospital policy and that all meds need to be ordered/scanned. LAYUP WORKER covering house contacted to add eye gtt, sent to pharmacy for profiling. Pt refusing oral hygiene, will reoffer. L midline w/blood return. H/H
drawn/sent. Call terry w/in reach, bed alarm active for safety.
[2024-09-26] MEDS: NON-FORMULARY ITEM LEFT EYE (22:36)
[2024-09-26] MEDS: MELATONIN PO (22:57)
[2024-09-27] VITALS (16 sets, daily range): BP systolic 109–135; BP diastolic 37–91; PULSE 57; O2SAT 100; BMI 21.6
--- NOTE | 2024-09-27 02:47 | PTCARENOTE ---
Addendum entered by Kirsty Bear RN 09/27/24 02:57:
Instructed to draw am labs at this time. ProBNP added. Cassidy ordered, RT contacted.
Original Note:
Pt reports 'I don't feel well, head up' Assisted to high blake's position. Difficulty verbalizing what doesn't feel well. Slightly tachypneic. When asked if feeling SOB, pt states 'a little'. VSS, RR 26. TT to FOLDER OPERATOR covering.
[2024-09-27] MEDS: DUONEB 3 ML INH (03:08)
[2024-09-27 03:27] LABS: % Basophils 0.4 % (0-2); % Eosinophils 2.4 % (0-6); % Immature Granulocytes 1.9 % (0-0.5); % Lymphocytes 8.4 % (20.5-51.1); % Monocytes 8.4 % (1.7-9.3); % Neutrophils 78.5 % (42.2-75.2); Absolute Eosinophils 0.2 10^3/uL (0-0.7); Absolute Immature Granulocytes 0.2 10^3/uL (0-0.05); Absolute Lymphocytes 0.8 10^3/uL (1.2-3.4); Absolute Monocytes 0.8 10^3/uL (0.1-0.6); Absolute Neutrophils 7.6 10^3/uL (1.4-6.5); Hematocrit 24.1 % (37.0-47.0); Mean Corp Hgb Conc. 33.2 g/dL (33.0-37.0); Mean Corpuscular Hgb 30.7 pg (27.0-31.0); Mean Corpuscular Volume 92.3 fL (81.0-99.0); Mean Platelet Volume 12.8 fL (7.4-10.4); Platelet Count 142 10^3/uL (130-400); Red Blood Cell Count 2.61 10^6/uL (4.20-5.40); Red Cell Dist. Width 16.9 % (11.5-14.5); White Blood Cell Count 9.6 10^3/uL (4.8-10.8)
[2024-09-27 03:48] LABS: Blood Urea Nitrogen 71 mg/dl (7-17); Calcium 8.6 mg/dl (8.4-10.2); Carbon Dioxide 32 mmol/L (22-30); Chloride 100 mmol/L (98-107); Estimated Creatinine Clearance 28 ml/min; Glucose 105 mg/dl (70-99); Sodium 136 mmol/L (135-145); eGFR 44.64
[2024-09-27 03:57] LABS: NT-proBNP 2850 pg/ml
--- NOTE | 2024-09-27 08:45 | W.PN.CARDCBS ---
Today's Communication / Plan
-
Diuretics per nephrology.
HR and bp stable.
Please recall if needed
Impression / Plan
-
PCP: Dr. Lindsay Machado
Primary Industrial Economics Teacher: Dr. Regalado
Assessment:
Melena with anemia requiring transfusion
Acute heart failure with preserved EF
CKD
Right pleural effusion/ status post thoracentesis with 400 cc on 09/19; negative for malignancy; transudative likely secondary to heart failure
Pneumonia
Chronic hyponatremia
AoC anemia requring transfusion
CAD on CT imaging with NSTEMI during COVID-pneumonia May 2022
Hyperkalemia with lisinopril
Hypertension
Paroxysmal atrial tachycardia
History of bradycardia
Hypercholesterolemia
Right bundle branch block
Echocardiogram 09/22/2024: Ejection fraction 60 to 65%, mild to moderate MR, mild TR with PA systolic of 45-50 mmHg
Echocardiogram 09/12/2024: Ejection fraction 60 to 65%, mild to moderate MR, PA systolic 52 mmHg
Echo April 2024, EF 71%, mild LVH, mild MR, mild TR with PA pressure 30
Lexiscan nuclear stress test August 13, 2022 with fixed inferior defect and no ischemia. EF 6
Plan:
She was transferred to IMU 09/25 with melena and acute blood loss anemia requiring 2untis PBCS
Remains hemodynamically stable. HR and bp stable.
GI is not planning any procedures.
Monitor H/H
Treatment of anemia to GI and hematology
Nephrology managing diuretics. Currently on hold as pt appears euvolemic.
No benefit for RHC and family declined it last week.
HR stable on Metoprolol. hx PAT.
Cont pulm toilet.
From a cardiac standpoint could be downgraded to telemetry
Please recall if needed.
Progress Note - Industrial Economics Teacher
Subjective
Date of Service: September 27, 2024
Pt seen and examined. No chest pain.
Objective
Labs:
09/27/24 03:05
09/27/24 03:05
Labs
Hgb 8.0 g/dL (12.0-16.0) L 09/27/24 03:05
Hct 24.1 % (37.0-47.0) L 09/27/24 03:05
Plt Count 142 10^3/uL (130-400) 09/27/24 03:05
Sodium 136 mmol/L (135-145) 09/27/24 03:05
Potassium 5.0 mmol/L (3.5-5.1) 09/27/24 03:05
BUN 71 mg/dl (7-17) H 09/27/24 03:05
Creatinine 1.2 mg/dL (0.6-1.0) H 09/27/24 03:05
Glucose 105 mg/dl (70-99) H 09/27/24 03:05
Vital Signs and I&O:
Vital Signs
Temp Pulse Resp BP Pulse Ox
97.8 F 56 13 125/44 100
09/27/24 08:00 09/27/24 06:00 09/27/24 06:00 09/27/24 06:00 09/27/24 06:00
Vital Signs
Temp Pulse Resp BP Pulse Ox
97.8 F 56 13 125/44 100
09/27/24 08:00 09/27/24 06:00 09/27/24 06:00 09/27/24 06:00 09/27/24 06:00
Intake & Output
09/25/24 09/26/24 09/27/24 09/28/24
06:59 06:59 06:59 06:59
Intake Total 480 / 480 575 / 575 240 / 240
Output Total 950 / 950 800 / 800
Balance -470 / -470 -225 / -225 240 / 240
Physical Exam
Physical Exam
General: No acute distress, lethargic
Neck: Negative JVD
Heart: Regular, Negative S3 positive S1/S2, Negative S4, No murmur
Lungs: CTA b/l, negative wheezes/rales/rhonchi
Abd: Positive BS, NT/ND, neg rebound/rigidity/guarding
Ext: Negative cyanosis/clubbing/edema
Neuro: nonfocal
--- NOTE | 2024-09-27 09:09 | W.PN.NEPH.PH ---
Today's Communication / Plan
-
follow BMP
Assessment/Plan
-
IMP:
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
Chronic hyponatremia
CKD [id number] cr 1.2-1.3
PAT
HTN
Chronic normocytic anemia
Hyperlipidemia
Essential hypertension
Constipation
proteinuria-1.7gm/gm of cr
Plan:
A/w CHF, fluid restriction 1440 mL/day
follow BMP, stable
cardiology may decide on diuretics
will sign off
-
-
Date of Service: September 27, 2024
CC / HPI / ROS
-
Chief Complaint:
Shortness of breath and CHF
History of Present Illness:
Cr down to 1.2
Hgb stable low 8.0
BUN lower 71
BP stable
Review of Systems:
non oliguric
no CP/SOB
Labs
-
Labs:
WBC 9.6 10^3/uL (4.8-10.8) 09/27/24 03:05
RBC 2.61 10^6/uL (4.20-5.40) L 09/27/24 03:05
Hgb 8.0 g/dL (12.0-16.0) L 09/27/24 03:05
Hct 24.1 % (37.0-47.0) L 09/27/24 03:05
Plt Count 142 10^3/uL (130-400) 09/27/24 03:05
Sodium 136 mmol/L (135-145) 09/27/24 03:05
Potassium 5.0 mmol/L (3.5-5.1) 09/27/24 03:05
Chloride 100 mmol/L (98-107) 09/27/24 03:05
Carbon Dioxide 32 mmol/L (22-30) H 09/27/24 03:05
BUN 71 mg/dl (7-17) H 09/27/24 03:05
Creatinine 1.2 mg/dL (0.6-1.0) H 09/27/24 03:05
eGFR 44.64 09/27/24 03:05
Glucose 105 mg/dl (70-99) H 09/27/24 03:05
Calcium 8.6 mg/dl (8.4-10.2) 09/27/24 03:05
Rwm-F-Wfgfmaeqhki Pept 2850 pg/ml 09/27/24 03:05
Albumin 2.9 g/dl (3.5-5.0) L 09/23/24 06:48
Physical Exam
-
Vital Signs:
Vital Signs
Temp Pulse Resp BP Pulse Ox
97.8 F 56 13 125/44 100
09/27/24 08:00 09/27/24 06:00 09/27/24 06:00 09/27/24 06:00 09/27/24 06:00
Cardiovascular:: Regular rate and rhythm
Respiratory:: Bilateral: CTA
Lung Excursion:: Normal
Abdomen:: Nontender and Soft
Bowel Sounds:: Normal
Extremity Edema:: None: Bilateral:
[2024-09-27] MEDS: PROTONIX IV 40 MG IV ×2 (09:26→21:10)
[2024-09-27] MEDS: PROCARDIA XL (EXTENDED RELEASE) 30 MG PO (09:26)
[2024-09-27] MEDS: AUGMENTIN 500 MG/125 MG 1 TABLET PO (09:26)
[2024-09-27] MEDS: SENOKOT-S 1 TABLET PO ×2 (09:27→21:12)
[2024-09-27] MEDS: THERAGRAN 1 TABLET PO (09:27)
[2024-09-27] MEDS: TOPROL XL 25 MG PO (09:27)
[2024-09-27] MEDS: MIRALAX 17 GRAMS PO (09:28)
[2024-09-27] MEDS: NSS (PRESERVATIVE FREE) 10 ML IV ×2 (09:28→21:11)
[2024-09-27] MEDS: APRESOLINE 50 MG PO (09:28)
[2024-09-27] MEDS: NON-FORMULARY ITEM 1 DROP LEFT EYE (09:28)
--- NOTE | 2024-09-27 09:56 | W.PN.ONC2 ---
Today's Communication / Plan
-
.
Impression
Impression
Melena
acute on chronic Anemia, suspect AOCD/CKD, component of MARCIN with ferritin <100. No B12 or folate deficiency. SPEP no M splke. FLC reflect inflammation/CKD with elevation kappa/lambda w nml ratio. EPO 30. s/p 3U PRBC and a course of IV iron
Acute hypoxemic respiratory insufficiency
Right pleural effusion, cytology negative for malignancy -likely etiology CHF
Acute on chronic HFpEF
PNA
pulmonary HTN
hyponatremia
BRANDON on CKD
proteinuria-1.7gm/gm of cr
Plan
Plan
GI considering EGD for further evaluation of melena
Transfuse PRN HgB < 7 PRN.
diuresis/fluid restriction per nepro
abx per pulmonary
No further inpatient hematology recommendations. Hematology will sign off, please reach out for any further questions or concerns.
Subjective/Objective
Subjective
melana
Vital Signs:
Vital Signs
Temp Pulse Resp BP Pulse Ox
97.8 F 67 20 116/47 98
09/27/24 08:00 09/27/24 09:53 09/27/24 09:53 09/27/24 09:53 09/27/24 09:53
Lab Results:
Laboratory Data
WBC 9.6 10^3/uL (4.8-10.8) 09/27/24 03:05
Hgb 8.0 g/dL (12.0-16.0) L 09/27/24 03:05
Plt Count 142 10^3/uL (130-400) 09/27/24 03:05
eGFR 44.64 09/27/24 03:05
[2024-09-27] MEDS: DEMADEX 5 MG PO (11:20)
--- NOTE | 2024-09-27 11:48 | W.PN.GI.CBS2 ---
Today's Communication / Plan
-
-- advance diet, any overt bleeding, check hgb otherwise check in the morning
Assessment / Plan
-
Jojo Denney is an 84 y.o. female with pmhx bradycardia and history of syncopal episodes, CKD heart failure with preserved ejection fraction admitted with acute decompensated heart failure w/ hospital course c/b hyponatremia, hypoxemic
respiratory failure, transudative pleural effusion and anemia requiring blood transfusion, now with an episode of melena and drop in hemoglobin.
#Melena w/ concern for UGIB--8.3 --> 7.6 --> 5.4 - , she was transfused with 2 units of PRBC on 09/25 with improvement to Hgb 9.1 which is an overcorrection and repeat was 9.1. Her hemoglobin has been 8 on the past 3 blood draws including this
morning on 09/27/2024. Her BUN is still elevated and stable along with her abnormal renal function..
BUN has been elevated throughout her admission due to BRANDON on CKD, however, does appear to be increased compared to prior, 72 --> 89--> 81--> now back to 71
-no obvious culprits for her bleeding, only on ASA 81mg
-transferred to IMU for closer monitoring
-check H&H if she has any overt bleeding or clinical signs of bleeding, otherwise, check in the morning
-PPI IV BID-- recommend continuing BID for 1 wk, then to once daily
-active T&C, transfuse for Hgb <8 in setting of cardiac disease
-2 large peripheral gauge IVs
-remains hemodynamically stable
Given stable hemoglobin, without episodes of bleeding overnight/signs of hemodynamic instability, no plans for endoscopic evaluation today
According to Dr. Aguilar, the family was hesitant to proceed with EGD and will give her another day to declare herself
Okay to advance to diet. Will follow for now. please call with questions or concerns for recurrent/active GI bleeding.
Subjective
Subjective
Date of Service: September 27, 2024
Patient denies any chest pain shortness of breath abdominal pain. She said she had a bowel movement today but is unsure of the color
Objective
Data Reviewed
Laboratory Data:
Laboratory Results
09/27/24 03:05
09/27/24 03:05
Laboratory Results
Magnesium 2.8 mg/dl (1.6-2.3) H 09/23/24 06:48
Total Bilirubin 0.3 mg/dl (0.2-1.3) 09/23/24 06:48
AST 27 U/L (14-36) 09/23/24 06:48
ALT 22 U/L (0-35) 09/23/24 06:48
Alkaline Phosphatase 68 U/L (38-126) 09/23/24 06:48
Vital Signs and I&O:
Vital Signs
Temp Pulse Resp BP Pulse Ox
97.8 F 67 20 116/47 98
09/27/24 08:00 09/27/24 09:53 09/27/24 09:53 09/27/24 09:53 09/27/24 09:53
I&O
09/26/24 09/27/24 09/28/24
06:59 06:59 06:59
Intake Total 575 / 575 240 / 240 240 / 240
Output Total 800 / 800
Balance -225 / -225 240 / 240 240 / 240
Physical Exam
Physical Exam
HEENT: Anicteric
GI: Soft, Non Distended and Non Tender
--- NOTE | 2024-09-27 12:31 | PTCARENOTE ---
Updated assessment, vital signs ongoing and as documented. Update with daughter at bedside this am. GI teams, Hospitalist teams at bedside thru morning. Follow up plan of cares, advance diet, advance activity, and transfer orders to follow. PT/OT at
bedside working with patient. Out of bed to chair at present. Follow up safety rounds, chair alarm intact, call terry in use as needed. Continue supportive cares and teaching.
--- NOTE | 2024-09-27 12:45 | W.PN.HOSP.TC ---
Today's Communication/Plan
-
Transfer to telemetry
Restart diuretic
Trend hemoglobin
Per GI hold off on endoscopy for now
Assessment / Plan
Assessment / Plan
#Acute hypoxemic respiratory insufficiency
#Right-sided transudative pleural effusion
# Multifocal pneumonia most pronounced in right lower lobe
-Status post course of IV Lasix for decompensated HFpEF; now on torsemide 10 mg daily, no GDMT
-Had chest x-ray performed 09/17 that showed moderate loculated right pleural effusion
-MRSA screen pending; blood culture NGTD; urine Legionella and streptococcal antigens negative
-Thoracentesis on 09/19 transudative per lights criteria and protein ratios; pH >7.4 low suspicion for empyema or parapneumonic
-Pulmonology following; started IV Zosyn after thoracentesis; repeat CT shows signs of multifocal pneumonia
-AFB and Pleural Cx neg;
-C/W PO augmentin to complete 7 day course; trend CBC and temperature curve
-Aspiration precautions, as needed nebs
-Serial chest x-ray to monitor effusion prn
-SpO2 goal > 90%
#Acute on chronic HFpEF
Cardiology and nephrology correspondence noted. Restarted torsemide at 5 mg
#BRANDON on CKD 3a
#Contraction alkalosis with respiratory acidosis
#Acidosis from acetazolamide
-Baseline creatinine in the range of 1.1-1.3; No chronic acidemia or signs of bone mineral disease
-Creatinine up to 1.7, as of 09/22, after IV diuresis; now holding acetazolamide and torsemide
-Cr improved to 1.2
-Holding torsemide -Monitor urine output closely for signs of oliguria
-Avoid nephrotoxic agents
-Continue to monitor BMP
-Cardiology and nephrology correspondence noted. Will restart torsemide at 5 mg and observe
# Suspected UGIB
#Acute on chronic anemia
-Patient had melenic bowel movement overnight 09/24 into 09/25
-Received 1 unit PRBC earlier in hospital stay though workup negative
-iron studies and B vitamins without deficiency; reticulocyte 2.8%; LFTs normal; normal EPO
-Hemoglobin 5.4 after melena; 2 units PRBC ordered, will be s/p 3 units total here
-Consulted hematology, recommended checking EPO and SPEP
-Remains hemodynamically stable despite blood loss
-IV PPI
-Follow-up SPEP for completeness-normal
-Will continue to trend CBC, monitor for bleeding
-Transfuse for hemoglobin <7.0 or symptoms
-GI will hold off on endoscopy as hemoglobin remained stable at 8..
#Hypervolemic hyponatremia
-Sodium as low as 125 here; associated with decompensated heart failure
-Nephrology following, s/p 1 dose of Samsca with sodium up to 140
-Continue to trend BMP
#Dyslipidemia
-No known ASCVD history, remains on statin therapy
#Primary hypertension
-No known history of hypertensive systemic diseases
-Home medications include nifedipine and hydralazine
-Blood pressure well-controlled
#Chronic RBBB
DVT prophylaxis: SCDs
CODE STATUS: Full code
tx to tele
Updated patient daughter over the phone in details.
Anticipated Discharge: > 48 hours
Subjective/Interval History
-
Date of Service: September 27, 2024
No further episode of melanotic stools
Hemoglobin has remained stable
Remains on oxygen
Objective Data
-
Labs:
Laboratory Results
09/27/24
03:05
WBC 9.6
Hgb 8.0 L
Hct 24.1 L
Plt Count 142
Sodium 136
Potassium 5.0
Chloride 100
Carbon Dioxide 32 H
BUN 71 H
Creatinine 1.2 H
Glucose 105 H
Calcium 8.6
Vital Signs:
Vital Signs
Temp Pulse Resp BP Pulse Ox
97.7 F 62 34 125/43 89
09/27/24 12:00 09/27/24 11:14 09/27/24 11:14 09/27/24 11:14 09/27/24 11:14
I&O
09/26/24 09/27/24 09/28/24
06:59 06:59 06:59
Intake Total 575 / 575 240 / 240 240 / 240
Output Total 800 / 800
Balance -225 / -225 240 / 240 240 / 240
Physical Exam
-
General: Well Developed, No Apparent Distress and Other (Frail-appearing)
HEENT: Normocephalic, Atraumatic, Moist Mucous Membranes and Oxygen
Respiratory: Non Labored Respirations and Decreased Breath Sounds; Negative Wheezes, Rhonchi or Accessory Resp Muscle Use
Cardiac: Regular Rhythm and S1/S2; Negative Murmur, Rub or Gallop
GI: Soft, Nontender, Nondistended and Normal Bowel Sounds
Musculoskeletal: No Clubbing, No Cyanosis and No Edema
Skin: Warm, Dry and Normal Turgor; Negative Rash
Neuro: AO x 3 and Nonfocal/Grossly Intact; Negative Tremors
Psych: Calm
Data Reviewed
-
Total Time Spent with Patient (in minutes): 55
--- NOTE | 2024-09-27 14:02 | CM ---
CM following re: discharge planning.
Reviewed pt's chart, met with pt and spoke to pt's daughter Thomas to discuss discharge plan.
Pt's daughter stated that pt was born and grew up in [place], lives with her and daughter works during day and pt stays at home alone. Pt's daughter brought to me her concerns regarding safety for the pt to be at home alone. Pt's daughter has been
notified that PT and OT recommend SNF vs home PT/OT and pt's daughter stated that her mother had [facility] in the past and at this time pt's daughter feels that her mother needs to go to a SNF for a short term rehab. Pt's daughter stated her mother does
not have any experience being in any SNFs in the past.
A list of SNFs with [place] insurance network provided to pt's daughter: [facility], [facility], [facility], [facility], [facility], [facility], [facility]. Pt's daughter requested not to make any
referrals till she checks reviews of those SNFs.
D/C plan; preferred SNF when medically stable.
CM will follow to assit pt with discharge to a preferred SNF.
--- NOTE | 2024-09-27 16:13 | PTCARENOTE ---
Patient assessment unchanged. Patient continues with mobility improvement. In and out of bed to chair, one person assist to ambulate room and to bathroom. Continue to reinforce plan of cares. 100% of lunch taken. Return to bed. Continue supportive
care, teaching and emotion al support. Update daughter on phone. Continue hourly rounds, use of call terry and frequent patient safety checks.
--- NOTE | 2024-09-27 17:42 | PTCARENOTE ---
Updated transfer to [facility]. Update with daughter at bedside. Patient with soft brown stool prior to transfer. Ambulate to bathroom and to bed. Ordered patient dinner and updated at your request patient new room.
--- NOTE | 2024-09-27 17:52 | PTCARENOTE ---
Received pt from ICU via wheelchair. AAOx3. security monitor placed. No complaints of pain. VSS. Call terry within close reach. Will continue to monitor.
[2024-09-27] MEDS: LIPITOR 40 MG PO (18:17)
[2024-09-27] MEDS: APRESOLINE PO (21:09)
[2024-09-27] MEDS: TOPROL XL PO (21:10)
[2024-09-27] MEDS: MELATONIN 5 MG PO (21:12)
[2024-09-27] MEDS: NON-FORMULARY ITEM LEFT EYE (23:00)
[2024-09-28 03:45] VITALS: BP 155/61
[2024-09-28 04:27] LABS: % Basophils 0.4 % (0-2); % Eosinophils 2.5 % (0-6); % Immature Granulocytes 1.1 % (0-0.5); % Lymphocytes 9.8 % (20.5-51.1); % Monocytes 8.3 % (1.7-9.3); % Neutrophils 77.9 % (42.2-75.2); Absolute Eosinophils 0.2 10^3/uL (0-0.7); Absolute Immature Granulocytes 0.1 10^3/uL (0-0.05); Absolute Lymphocytes 0.8 10^3/uL (1.2-3.4); Absolute Monocytes 0.7 10^3/uL (0.1-0.6); Absolute Neutrophils 6.2 10^3/uL (1.4-6.5); Hematocrit 25.9 % (37.0-47.0); Hemoglobin 8.3 g/dL (12.0-16.0); Mean Corpuscular Hgb 30.2 pg (27.0-31.0); Mean Corpuscular Volume 94.2 fL (81.0-99.0); Mean Platelet Volume 11.7 fL (7.4-10.4); Nucleated Red Blood Cells % 0.9 %; Platelet Count 160 10^3/uL (130-400); Red Blood Cell Count 2.75 10^6/uL (4.20-5.40); Red Cell Dist. Width 16.4 % (11.5-14.5); White Blood Cell Count 7.9 10^3/uL (4.8-10.8)
[2024-09-28 04:52] LABS: Blood Urea Nitrogen 54 mg/dl (7-17); Calcium 8.8 mg/dl (8.4-10.2); Carbon Dioxide 37 mmol/L (22-30); Chloride 102 mmol/L (98-107); Estimated Creatinine Clearance 28 ml/min; Glucose 106 mg/dl (70-99); Potassium 4.7 mmol/L (3.5-5.1); Sodium 139 mmol/L (135-145); eGFR 44.64
[2024-09-28 06:00] VITALS: BMI 21.5
[2024-09-28 07:30] VITALS: BP 164/59
[2024-09-28] MEDS: APRESOLINE 50 MG PO (08:15)
[2024-09-28] MEDS: MIRALAX 17 GRAMS PO (08:17)
[2024-09-28] MEDS: PROCARDIA XL (EXTENDED RELEASE) 30 MG PO (08:19)
[2024-09-28] MEDS: THERAGRAN 1 TABLET PO (08:19)
[2024-09-28] MEDS: SENOKOT-S 1 TABLET PO (08:19)
[2024-09-28] MEDS: DEMADEX 5 MG PO (08:19)
[2024-09-28] MEDS: TOPROL XL 25 MG PO (08:19)
[2024-09-28] MEDS: PROTONIX IV 40 MG IV ×2 (08:20→21:35)
[2024-09-28] MEDS: NSS (PRESERVATIVE FREE) 10 ML IV ×2 (08:20→21:33)
[2024-09-28] MEDS: NON-FORMULARY ITEM 1 DROP LEFT EYE ×2 (09:30→21:34)
[2024-09-28 11:05] VITALS: BP 130/44
--- NOTE | 2024-09-28 11:12 | W.PN.HOSP.TC ---
Today's Communication/Plan
-
Start dispo
start probiotics
gas x
OOB
wean o2
Assessment / Plan
Assessment / Plan
#Acute hypoxemic respiratory insufficiency
#Right-sided transudative pleural effusion
# Multifocal pneumonia most pronounced in right lower lobe
-Status post course of IV Lasix for decompensated HFpEF; now on torsemide 10 mg daily, no GDMT
-Had chest x-ray performed 09/17 that showed moderate loculated right pleural effusion
-MRSA screen pending; blood culture NGTD; urine Legionella and streptococcal antigens negative
-Thoracentesis on 09/19 transudative per lights criteria and protein ratios; pH >7.4 low suspicion for empyema or parapneumonic
-Pulmonology following; started IV Zosyn after thoracentesis; repeat CT shows signs of multifocal pneumonia
-AFB and Pleural Cx neg;
-C/W PO augmentin to complete 7 day course; trend CBC and temperature curve
-Aspiration precautions, as needed nebs
-Serial chest x-ray to monitor effusion prn
-SpO2 goal > 90%
#Acute on chronic HFpEF
Cardiology and nephrology correspondence noted. Restarted torsemide at 5 mg
mild uptrend in weight. Will monitor for now
#BRANDON on CKD 3a
#Contraction alkalosis with respiratory acidosis
#Acidosis from acetazolamide
-Baseline creatinine in the range of 1.1-1.3; No chronic acidemia or signs of bone mineral disease
-Creatinine up to 1.7, as of 09/22, after IV diuresis; now holding acetazolamide and torsemide
-Cr improved to 1.2
-Holding torsemide -Monitor urine output closely for signs of oliguria
-Avoid nephrotoxic agents
-Continue to monitor BMP
-Cardiology and nephrology correspondence noted. Will restart torsemide at 5 mg and observe
# Suspected UGIB
#Acute on chronic anemia
-Patient had melenic bowel movement overnight 09/24 into 09/25
-Received 1 unit PRBC earlier in hospital stay though workup negative
-iron studies and B vitamins without deficiency; reticulocyte 2.8%; LFTs normal; normal EPO
-Hemoglobin 5.4 after melena; 2 units PRBC ordered, will be s/p 3 units total here
-Consulted hematology, recommended checking EPO and SPEP
-Remains hemodynamically stable despite blood loss
-IV PPI
-Follow-up SPEP for completeness-normal
-Will continue to trend CBC, monitor for bleeding
-Transfuse for hemoglobin <7.0 or symptoms
-GI will hold off on endoscopy as hemoglobin remained stable at 8.3
#Hypervolemic hyponatremia
-Sodium as low as 125 here; associated with decompensated heart failure
-Nephrology following, s/p 1 dose of Samsca with sodium up to 140
-Continue to trend BMP
#Dyslipidemia
-No known ASCVD history, remains on statin therapy
#Primary hypertension
-No known history of hypertensive systemic diseases
-Home medications include nifedipine and hydralazine
-Blood pressure well-controlled
#Chronic RBBB
DVT prophylaxis: SCDs
CODE STATUS: Full code
PT/OT-SNF vs. . PT/daughter prefers SNF. CM aware. Start
Updated patient daughter at bedside in details
Anticipated Discharge: Within 24 hours
Subjective/Interval History
-
Date of Service: September 28, 2024
Last night felt mild sob but not this morning
states of abd bloating
Objective Data
-
Labs:
Laboratory Results
09/28/24
04:15
WBC 7.9
Hgb 8.3 L
Hct 25.9 L
Plt Count 160
Sodium 139
Potassium 4.7
Chloride 102
Carbon Dioxide 37 H
BUN 54 H
Creatinine 1.2 H
Glucose 106 H
Calcium 8.8
Vital Signs:
Vital Signs
Temp Pulse Resp BP Pulse Ox
98.1 F 84 18 164/59 93
09/28/24 07:30 09/28/24 08:15 09/28/24 07:30 09/28/24 08:15 09/28/24 07:30
I&O
09/27/24 09/28/24 09/29/24
06:59 06:59 06:59
Intake Total 240 / 240 1080 / 1080
Balance 240 / 240 1080 / 1080
Physical Exam
-
General: Well Developed, No Apparent Distress and Other (Frail-appearing)
HEENT: Normocephalic, Atraumatic, Moist Mucous Membranes and Oxygen
Respiratory: Non Labored Respirations and Decreased Breath Sounds; Negative Wheezes, Rhonchi or Accessory Resp Muscle Use
Cardiac: Regular Rhythm and S1/S2; Negative Murmur, Rub or Gallop
GI: Soft, Nontender, Nondistended and Normal Bowel Sounds
Musculoskeletal: No Clubbing, No Cyanosis and No Edema
Skin: Warm, Dry and Normal Turgor; Negative Rash
Neuro: AO x 3 and Nonfocal/Grossly Intact; Negative Tremors
Psych: Calm
Data Reviewed
-
Total Time Spent with Patient (in minutes): 55
[2024-09-28] MEDS: VISBIOME 1 CAP PO (11:21)
[2024-09-28] MEDS: MYLICON 80 MG PO (11:21)
--- NOTE | 2024-09-28 13:39 | W.PN.NEPH.PH ---
Today's Communication / Plan
-
observe
Assessment/Plan
-
IMP:
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
Chronic hyponatremia
CKD [id number] cr 1.2-1.3
PAT
HTN
Chronic normocytic anemia
Hyperlipidemia
Essential hypertension
Constipation
proteinuria-1.7gm/gm of cr
Plan:
saw pt today with daughter request
BRANDON-improving and cr now at baseline
ok for Torsemide 5mg as she seem to tolerate
met alkalosis however seem to have primary resp acidosis
hb stable
maintain FR
BP stable with meds
d/c plan to SNF
d/w daughter on phone
f/u nephro if family wishes
will s/o
-
-
Date of Service: September 28, 2024
CC / HPI / ROS
-
Chief Complaint:
Shortness of breath and CHF
History of Present Illness:
Cr down to 1.2, BUN 54
Hgb stable low 8.3
BP stable
Review of Systems:
sleeping during visit
offer no pain or sob
Labs
-
Labs:
WBC 7.9 10^3/uL (4.8-10.8) 09/28/24 04:15
RBC 2.75 10^6/uL (4.20-5.40) L 09/28/24 04:15
Hgb 8.3 g/dL (12.0-16.0) L 09/28/24 04:15
Hct 25.9 % (37.0-47.0) L 09/28/24 04:15
Plt Count 160 10^3/uL (130-400) 09/28/24 04:15
Sodium 139 mmol/L (135-145) 09/28/24 04:15
Potassium 4.7 mmol/L (3.5-5.1) 09/28/24 04:15
Chloride 102 mmol/L (98-107) 09/28/24 04:15
Carbon Dioxide 37 mmol/L (22-30) H 09/28/24 04:15
BUN 54 mg/dl (7-17) H 09/28/24 04:15
Creatinine 1.2 mg/dL (0.6-1.0) H 09/28/24 04:15
eGFR 44.64 09/28/24 04:15
Glucose 106 mg/dl (70-99) H 09/28/24 04:15
Calcium 8.8 mg/dl (8.4-10.2) 09/28/24 04:15
Ktc-L-Orrgxahztgt Pept 2850 pg/ml 09/27/24 03:05
Albumin 2.9 g/dl (3.5-5.0) L 09/23/24 06:48
Physical Exam
-
Vital Signs:
Vital Signs
Temp Pulse Resp BP Pulse Ox
97.7 F 62 18 130/44 98
09/28/24 11:05 09/28/24 11:05 09/28/24 11:05 09/28/24 11:05 09/28/24 11:05
Cardiovascular:: Regular rate and rhythm
Respiratory:: Bilateral: CTA (decreased)
Lung Excursion:: Normal
Abdomen:: Nontender and Soft
Bowel Sounds:: Normal
Extremity Edema:: None: Bilateral:
De Oliveira Catheter: No
--- NOTE | 2024-09-28 14:19 | W.PN.GI.CBS2 ---
Addendum entered and electronically signed by Nguyen Parr DO 09/28/24 16:15:
Patient seen and examined independently of MOSS PICKER. I agree with her note with my additions below
No further overt bleeding and hemoglobin is stable and BUN also continues to drop as well as improving renal function
No current urgent indication for EGD.
Please call us back if patient has any significant overt bleeding. If she remains stable transition to twice daily PPI for 4 weeks then once daily indefinitely
Patient denies any complaints
GI will sign off. Please call back if she has any overt bleeding
Original Note:
Today's Communication / Plan
-
likely resolving GI bleed with drop in hbg and rise in BUN
daughter wished to hold off on scope with other med problems
hbg now stable 8 range with BUN down to 8.3
stool dark brown today
pt was not on PPI prior to admission - if remain stable transition to PO BID x 4 weeks then daily x 4 weeks
if recurent bleeding review with family again for EGD
Assessment / Plan
-
Jojo Denney is an 84 y.o. female with pmhx bradycardia and history of syncopal episodes, CKD heart failure with preserved ejection fraction admitted with acute decompensated heart failure w/ hospital course c/b hyponatremia, hypoxemic
respiratory failure, transudative pleural effusion and anemia requiring blood transfusion,seen by GI for melena and drop in hemoglobin.
#Melena with anemia and drop in hbg w/ concern for UGIB--8.3 --> 7.6 --> 5.4 - , she was transfused with 2 units of PRBC on 09/25 with improvement to Hgb 9.1 then maintained on 8 range since that time
pt with dark brown stool today and feeling better
BUN improving
reviewed with daughter 09/26 would like to hold EGD but can re discuss if further bleeding or drop in hbg
cont diet
cont PPI BID if stable in AM consider transition to PO dosing
Subjective
Subjective
Date of Service: September 28, 2024
4/7 black stool and per staff dark brown today, on low residue diet
Objective
Data Reviewed
Laboratory Data:
Laboratory Results
09/28/24 04:15
09/28/24 04:15
Laboratory Results
Magnesium 2.8 mg/dl (1.6-2.3) H 09/23/24 06:48
Total Bilirubin 0.3 mg/dl (0.2-1.3) 09/23/24 06:48
AST 27 U/L (14-36) 09/23/24 06:48
ALT 22 U/L (0-35) 09/23/24 06:48
Alkaline Phosphatase 68 U/L (38-126) 09/23/24 06:48
Vital Signs and I&O:
Vital Signs
Temp Pulse Resp BP Pulse Ox
97.7 F 62 18 130/44 98
09/28/24 11:05 09/28/24 11:05 09/28/24 11:05 09/28/24 11:05 09/28/24 11:05
I&O
09/27/24 09/28/24 09/29/24
06:59 06:59 06:59
Intake Total 240 / 240 1080 / 1080
Balance 240 / 240 1080 / 1080
Physical Exam
Physical Exam
HEENT: Anicteric and Moist mucous membranes
Cardiology: Normal Sinus Rhythm
Pulmonary: Other (decreased )
GI: Non Distended and Non Tender
Extremities: No Edema
Neuro: Non Focal
[2024-09-28 15:29] VITALS: BP 120/50
--- NOTE | 2024-09-28 16:19 | CM ---
Spoke with dgt Thomas [phone] she said she had not received pac data from former CM .
Pt and dgt [place]
Dgt to review SNF closer to [place] .
Dgt to call tomorrow [facility]F choices.
PLAN To SNf after located and accepted
[2024-09-28] MEDS: LIPITOR 40 MG PO (17:12)
[2024-09-28 19:00] VITALS: BP 104/45
[2024-09-28] MEDS: APRESOLINE PO (21:31)
[2024-09-28] MEDS: MELATONIN 5 MG PO (21:35)
[2024-09-28] MEDS: TOPROL XL PO (21:43)
[2024-09-28 23:00] VITALS: BP 138/42
[2024-09-29 03:00] VITALS: BP 105/65
[2024-09-29 05:32] LABS: % Basophils 0.3 % (0-2); % Immature Granulocytes 0.9 % (0-0.5); % Monocytes 8.4 % (1.7-9.3); % Neutrophils 80.4 % (42.2-75.2); Absolute Eosinophils 0.2 10^3/uL (0-0.7); Absolute Immature Granulocytes 0.1 10^3/uL (0-0.05); Absolute Lymphocytes 0.6 10^3/uL (1.2-3.4); Absolute Monocytes 0.6 10^3/uL (0.1-0.6); Absolute Neutrophils 6.1 10^3/uL (1.4-6.5); Hematocrit 24.6 % (37.0-47.0); Hemoglobin 7.9 g/dL (12.0-16.0); Mean Corp Hgb Conc. 32.1 g/dL (33.0-37.0); Mean Corpuscular Hgb 30.4 pg (27.0-31.0); Mean Corpuscular Volume 94.6 fL (81.0-99.0); Mean Platelet Volume 12.6 fL (7.4-10.4); Nucleated Red Blood Cells % 0.4 %; Platelet Count 164 10^3/uL (130-400); Red Cell Dist. Width 16.3 % (11.5-14.5); White Blood Cell Count 7.6 10^3/uL (4.8-10.8)
[2024-09-29 05:54] LABS: Blood Urea Nitrogen 42 mg/dl (7-17); Calcium 8.5 mg/dl (8.4-10.2); Carbon Dioxide 36 mmol/L (22-30); Chloride 100 mmol/L (98-107); Estimated Creatinine Clearance 30 ml/min; Glucose 99 mg/dl (70-99); Potassium 5.2 mmol/L (3.5-5.1); Sodium 137 mmol/L (135-145); eGFR 49.55
[2024-09-29 06:00] VITALS: BMI 21.5
[2024-09-29 07:26] VITALS: BP 155/60
[2024-09-29] MEDS: THERAGRAN 1 TABLET PO (08:01)
[2024-09-29] MEDS: PROTONIX IV 40 MG IV (08:01)
[2024-09-29] MEDS: NSS (PRESERVATIVE FREE) 10 ML IV (08:01)
[2024-09-29] MEDS: DEMADEX 5 MG PO (08:01)
[2024-09-29] MEDS: PROCARDIA XL (EXTENDED RELEASE) 30 MG PO (08:02)
[2024-09-29] MEDS: APRESOLINE 50 MG PO ×2 (08:02→20:11)
[2024-09-29] MEDS: VISBIOME 1 CAP PO (08:02)
[2024-09-29] MEDS: TOPROL XL 25 MG PO ×2 (08:02→20:11)
[2024-09-29] MEDS: NON-FORMULARY ITEM 1 DROP LEFT EYE (08:02)
[2024-09-29] MEDS: FLUSH (NSS) 2 FLUSH IV (08:05)
--- NOTE | 2024-09-29 11:36 | W.PN.HOSP.TC ---
Addendum entered and electronically signed by Marky Toribio MD 09/29/24 18:13:
Discussed the chest x-ray finding with patient daughter. Explained the rationale for the Lasix as patient with shortness of breath with exertion. Currently patient is comfortable on room air at rest and not requiring oxygenation
Will give 40 mg of Lasix x 1 dose only. Trend creatinine.
With increasing weight of 3 kg will ask nephrology for further input tomorrow..
Original Note:
Today's Communication/Plan
-
trend h/h
wean o2
await placement
if w/ repeat SOB episode check CXR and probnp
Assessment / Plan
Assessment / Plan
#Acute hypoxemic respiratory insufficiency
#Right-sided transudative pleural effusion
# Multifocal pneumonia most pronounced in right lower lobe
-Status post course of IV Lasix for decompensated HFpEF; now on torsemide 10 mg daily, no GDMT
-Had chest x-ray performed 09/17 that showed moderate loculated right pleural effusion
-MRSA screen pending; blood culture NGTD; urine Legionella and streptococcal antigens negative
-Thoracentesis on 09/19 transudative per lights criteria and protein ratios; pH >7.4 low suspicion for empyema or parapneumonic
-Pulmonology following; started IV Zosyn after thoracentesis; repeat CT shows signs of multifocal pneumonia
-AFB and Pleural Cx neg;
-C/W PO augmentin to complete 7 day course; trend CBC and temperature curve
-Aspiration precautions, as needed nebs
-Serial chest x-ray to monitor effusion prn
-SpO2 goal > 90%
#Acute on chronic HFpEF
Cardiology and nephrology correspondence noted. Restarted torsemide at 5 mg
mild uptrend in weight. Will monitor for now
#BRANDON on CKD 3a
#Contraction alkalosis with respiratory acidosis
#Acidosis from acetazolamide
-Baseline creatinine in the range of 1.1-1.3; No chronic acidemia or signs of bone mineral disease
-Creatinine up to 1.7, as of 09/22, after IV diuresis; now holding acetazolamide and torsemide
-Cr improved to 1.1
-Avoid nephrotoxic agents
-Continue to monitor BMP
-Cardiology and nephrology correspondence noted. Will restart torsemide at 5 mg and observe. If needed can dose to 10mg if w/SOB.
# Suspected UGIB
#Acute on chronic anemia
-Patient had melenic bowel movement overnight 09/24 into 09/25
-Received 1 unit PRBC earlier in hospital stay though workup negative
-iron studies and B vitamins without deficiency; reticulocyte 2.8%; LFTs normal; normal EPO
-Hemoglobin 5.4 after melena; 2 units PRBC ordered, will be s/p 3 units total here
-Consulted hematology, recommended checking EPO and SPEP
-Remains hemodynamically stable despite blood loss
-PPI IV bid x 4 week than daily afterwards
-Follow-up SPEP for completeness-normal
-Will continue to trend CBC, monitor for bleeding
-Transfuse for hemoglobin <7.0 or symptoms
-GI will hold off on endoscopy for now. Having formed brown BM.
#Hypervolemic hyponatremia
-Sodium as low as 125 here; associated with decompensated heart failure
-Nephrology following, s/p 1 dose of Samsca with sodium up to 140
-Continue to trend BMP
#Abdomen bloating
-holding bowel regimen
-Gas x
#Dyslipidemia
-No known ASCVD history, remains on statin therapy
#Primary hypertension
-No known history of hypertensive systemic diseases
-Home medications include nifedipine and hydralazine
-Blood pressure well-controlled
#Chronic RBBB
DVT prophylaxis: SCDs
CODE STATUS: Full code
PT/OT-SNF vs. HH. PT/daughter prefers SNF which would be advisable as patient will be by herself at home while family is working. CM aware. Start dispo. Recommend out of bed to chair with assistance.
Updated patient daughter over the phone in details.
Anticipated Discharge: 24 - 48 hours
Subjective/Interval History
-
Date of Service: September 29, 2024
Denies any bloating and or gas pain compared to yesterday
felt sob last night but nothing morning
eating breakfast
last bm yesterday-brown formed
Objective Data
-
Labs:
Laboratory Results
09/29/24
04:54
WBC 7.6
Hgb 7.9 L
Hct 24.6 L
Plt Count 164
Sodium 137
Potassium 5.2 H
Chloride 100
Carbon Dioxide 36 H
BUN 42 H
Creatinine 1.1 H
Glucose 99
Calcium 8.5
Vital Signs:
Vital Signs
Temp Pulse Resp BP Pulse Ox
97.8 F 75 14 155/60 97
09/29/24 07:26 09/29/24 08:01 09/29/24 07:26 09/29/24 08:01 09/29/24 07:26
I&O
09/28/24 09/29/24 09/30/24
06:59 06:59 06:59
Intake Total 1080 / 1080 720 / 720
Balance 1080 / 1080 720 / 720
Data Reviewed
-
Total Time Spent with Patient (in minutes): 55
[2024-09-29 15:08] VITALS: BP 145/55; PULSE 69; O2SAT 99
--- NOTE | 2024-09-29 15:08 | PTCARENOTE ---
Pt s/o SOB while working with PT. 99% on room air. made aware.
[2024-09-29 15:18] VITALS: BP 145/55
[2024-09-29 15:43] VITALS: BP 145/55; PULSE 68; O2SAT 99
[2024-09-29] MEDS: LASIX 40 MG IV (16:20)
[2024-09-29] MEDS: FLUSH (NSS) 1 FLUSH IV (16:23)
--- NOTE | 2024-09-29 17:19 | CM ---
Spoke with t Thomas [phone] she requested referral for [facility] [place].
Referral placed.
[facility] from [facility] call [phone] Call [facility] 09/30/24 for bed availability.
PLAN To SNf after located and accepted
[2024-09-29] MEDS: LIPITOR 40 MG PO (17:47)
[2024-09-29 23:00] VITALS: BP 176/58
[2024-09-30] MEDS: NON-FORMULARY ITEM 1 DROP LEFT EYE ×3 (00:06→20:28)
[2024-09-30] MEDS: NSS (PRESERVATIVE FREE) 10 ML IV ×3 (00:06→20:28)
[2024-09-30] MEDS: PROTONIX IV 40 MG IV ×3 (00:11→20:27)
[2024-09-30] MEDS: MELATONIN PO (00:11)
[2024-09-30 03:00] VITALS: BP 158/58
[2024-09-30 04:20] LABS: % Basophils 0.4 % (0-2); % Eosinophils 2.2 % (0-6); % Immature Granulocytes 0.5 % (0-0.5); % Lymphocytes 6.3 % (20.5-51.1); % Monocytes 6.8 % (1.7-9.3); % Neutrophils 83.8 % (42.2-75.2); Absolute Eosinophils 0.2 10^3/uL (0-0.7); Absolute Lymphocytes 0.5 10^3/uL (1.2-3.4); Absolute Monocytes 0.5 10^3/uL (0.1-0.6); Absolute Neutrophils 6.5 10^3/uL (1.4-6.5); Hematocrit 26.2 % (37.0-47.0); Hemoglobin 8.3 g/dL (12.0-16.0); Mean Corp Hgb Conc. 31.7 g/dL (33.0-37.0); Mean Corpuscular Hgb 30.2 pg (27.0-31.0); Mean Corpuscular Volume 95.3 fL (81.0-99.0); Mean Platelet Volume 11.8 fL (7.4-10.4); Nucleated Red Blood Cells % 0.3 %; Platelet Count 188 10^3/uL (130-400); Red Blood Cell Count 2.75 10^6/uL (4.20-5.40); Red Cell Dist. Width 16.7 % (11.5-14.5); White Blood Cell Count 7.8 10^3/uL (4.8-10.8)
[2024-09-30 04:43] LABS: Blood Urea Nitrogen 36 mg/dl (7-17); Calcium 8.5 mg/dl (8.4-10.2); Chloride 98 mmol/L (98-107); Estimated Creatinine Clearance 33 ml/min; Glucose 103 mg/dl (70-99); Potassium 5.1 mmol/L (3.5-5.1); Sodium 139 mmol/L (135-145); eGFR 55.55
[2024-09-30 04:55] LABS: Carbon Dioxide 38 mmol/L (22-30)
[2024-09-30 07:40] VITALS: BP 170/53
[2024-09-30 08:33] VITALS: BMI 20.9
[2024-09-30] MEDS: DEMADEX 5 MG PO (09:09)
[2024-09-30] MEDS: TOPROL XL 25 MG PO ×2 (09:09→20:27)
[2024-09-30] MEDS: VISBIOME 1 CAP PO (09:10)
[2024-09-30] MEDS: APRESOLINE 50 MG PO ×2 (09:10→20:26)
[2024-09-30] MEDS: THERAGRAN 1 TABLET PO (09:10)
[2024-09-30] MEDS: PROCARDIA XL (EXTENDED RELEASE) 30 MG PO (09:13)
[2024-09-30 11:18] VITALS: BP 133/45
--- NOTE | 2024-09-30 12:00 | W.PN.HOSP.TC ---
Today's Communication/Plan
-
wean o2
Po diuretics
await placement
Recommend IS usage
Assessment / Plan
Assessment / Plan
#Acute hypoxemic respiratory insufficiency
#Right-sided transudative pleural effusion
# Multifocal pneumonia most pronounced in right lower lobe
-Status post course of IV Lasix for decompensated HFpEF; now on torsemide 10 mg daily, no GDMT
-Had chest x-ray performed 09/17 that showed moderate loculated right pleural effusion
-MRSA screen pending; blood culture NGTD; urine Legionella and streptococcal antigens negative
-Thoracentesis on 09/19 transudative per lights criteria and protein ratios; pH >7.4 low suspicion for empyema or parapneumonic
-Pulmonology following; started IV Zosyn after thoracentesis; repeat CT shows signs of multifocal pneumonia
-AFB and Pleural Cx neg;
-PO augmentin to completed 7 day course;
-Aspiration precautions, as needed nebs
-Serial chest x-ray to monitor effusion prn
-SpO2 goal > 90%. Incentive spirometry
#Acute on chronic HFpEF
Cardiology and nephrology correspondence noted. Restarted torsemide at 5 mg
mild uptrend in weight s/p 40mg Lasix on 09/29.
Wt downtrended.
#BRANDON on CKD 3a
#Contraction alkalosis with respiratory acidosis
#Acidosis from acetazolamide
-Baseline creatinine in the range of 1.1-1.3; No chronic acidemia or signs of bone mineral disease
-Creatinine up to 1.7, as of 09/22, after IV diuresis; now holding acetazolamide and torsemide
-Cr improved to 1.1
-Avoid nephrotoxic agents
-Continue to monitor BMP
-Cardiology and nephrology correspondence noted. Will restart torsemide at 5 mg and observe. If needed can dose to 10mg if w/SOB.
# Suspected UGIB
#Acute on chronic anemia
-Patient had melenic bowel movement overnight 09/24 into 09/25
-Received 1 unit PRBC earlier in hospital stay though workup negative
-iron studies and B vitamins without deficiency; reticulocyte 2.8%; LFTs normal; normal EPO
-Hemoglobin 5.4 after melena; s/p 3 units total here
-Consulted hematology, recommended checking EPO and SPEP
-Remains hemodynamically stable despite blood loss
-PPI IV bid x 4 week than daily afterwards
-Follow-up SPEP for completeness-normal
-Will continue to trend CBC, monitor for bleeding
-Transfuse for hemoglobin <7.0 or symptoms
-GI will hold off on endoscopy for now. Daughter highly hesistant for any procedures. Having formed brown BM.
#Hypervolemic hyponatremia
-Sodium as low as 125 here; associated with decompensated heart failure
-Nephrology following, s/p 1 dose of Samsca with sodium up to 140
-Continue to trend BMP
#Abdomen bloating
-holding bowel regimen
-Gas x
#Dyslipidemia
-No known ASCVD history, remains on statin therapy
#Primary hypertension
-No known history of hypertensive systemic diseases
-Home medications include nifedipine and hydralazine
-Blood pressure well-controlled
#Chronic RBBB
DVT prophylaxis: SCDs
CODE STATUS: Full code
PT/OT-SNF vs. HH. PT/daughter prefers SNF which would be advisable as patient will be by herself at home while family is working. CM aware. Start dispo. Recommend out of bed to chair with assistance.
Updated patient daughter at bedside in details
Anticipated Discharge: Within 24 hours
Subjective/Interval History
-
Date of Service: September 30, 2024
Passed increasing amount of urine yesterday
denies feeling sob yesterday and today
Objective Data
-
Labs:
Laboratory Results
09/30/24
03:59
WBC 7.8
Hgb 8.3 L
Hct 26.2 L
Plt Count 188
Sodium 139
Potassium 5.1
Chloride 98
Carbon Dioxide 38 H
BUN 36 H
Creatinine 1.0
Glucose 103 H
Calcium 8.5
Vital Signs:
Vital Signs
Temp Pulse Resp BP Pulse Ox
97.1 F 55 15 133/45 100
09/30/24 11:18 09/30/24 11:18 09/30/24 11:18 09/30/24 11:18 09/30/24 11:18
I&O
09/29/24 09/30/24 10/01/24
06:59 06:59 06:59
Intake Total 720 / 720 900 / 900
Balance 720 / 720 900 / 900
[2024-09-30 15:07] VITALS: BP 131/43
--- NOTE | 2024-09-30 16:38 | CM ---
assistant banquet manager continues to follow with patient progress and per admissions at [facility] they have no beds, patient has been accepted at [facility] and [facility] will need to follow up with daughter.
Plan; Skilled placement need to follow up with [place] and [facility]
[2024-09-30] MEDS: LIPITOR 40 MG PO (17:05)
[2024-09-30] MEDS: MELATONIN 5 MG PO (20:26)
[2024-09-30 23:00] VITALS: BP 159/55
--- NOTE | 2024-10-01 04:23 | PTCARENOTE ---
Low temp noted, axillary obtained per patient request 96.6F -- patient feeling cold during VS check. Rechecked rectal at 96.2F. Warm blankets provided to patient, rechecked temp 97.2F axillary. Will recheck again and monitor closely.
[2024-10-01 06:00] VITALS: BMI 19.5
[2024-10-01 06:12] LABS: % Basophils 0.3 % (0-2); % Eosinophils 2.4 % (0-6); % Immature Granulocytes 0.6 % (0-0.5); % Lymphocytes 7.2 % (20.5-51.1); % Monocytes 7.2 % (1.7-9.3); % Neutrophils 82.3 % (42.2-75.2); Absolute Eosinophils 0.2 10^3/uL (0-0.7); Absolute Immature Granulocytes 0.1 10^3/uL (0-0.05); Absolute Lymphocytes 0.6 10^3/uL (1.2-3.4); Absolute Monocytes 0.6 10^3/uL (0.1-0.6); Absolute Neutrophils 6.6 10^3/uL (1.4-6.5); Hematocrit 26.8 % (37.0-47.0); Hemoglobin 8.4 g/dL (12.0-16.0); Mean Corp Hgb Conc. 31.3 g/dL (33.0-37.0); Mean Corpuscular Hgb 30.4 pg (27.0-31.0); Mean Corpuscular Volume 97.1 fL (81.0-99.0); Mean Platelet Volume 11.5 fL (7.4-10.4); Nucleated Red Blood Cells % 0 %; Platelet Count 183 10^3/uL (130-400); Red Blood Cell Count 2.76 10^6/uL (4.20-5.40); Red Cell Dist. Width 16.7 % (11.5-14.5)
[2024-10-01 06:33] LABS: Blood Urea Nitrogen 36 mg/dl (7-17); Calcium 8.4 mg/dl (8.4-10.2); Carbon Dioxide 37 mmol/L (22-30); Chloride 97 mmol/L (98-107); Estimated Creatinine Clearance 32 ml/min; Glucose 97 mg/dl (70-99); Potassium 5.4 mmol/L (3.5-5.1); Sodium 136 mmol/L (135-145); eGFR 55.55
[2024-10-01] MEDS: DUONEB 3 ML INH (07:20)
[2024-10-01] MEDS: NSS (PRESERVATIVE FREE) 10 ML IV ×2 (07:48→20:29)
[2024-10-01] MEDS: PROCARDIA XL (EXTENDED RELEASE) 30 MG PO (07:48)
[2024-10-01] MEDS: TOPROL XL 25 MG PO ×2 (07:48→20:30)
[2024-10-01] MEDS: NON-FORMULARY ITEM 1 DROP LEFT EYE ×2 (07:48→20:30)
[2024-10-01] MEDS: PROTONIX IV 40 MG IV ×2 (07:48→20:29)
[2024-10-01] MEDS: VISBIOME 1 CAP PO (07:48)
[2024-10-01] MEDS: THERAGRAN 1 TABLET PO (07:48)
[2024-10-01] MEDS: APRESOLINE 50 MG PO (07:48)
[2024-10-01] MEDS: DEMADEX 5 MG PO (07:50)
[2024-10-01 12:06] VITALS: BP 111/45
--- NOTE | 2024-10-01 12:14 | W.PN.HOSP.TC ---
Today's Communication/Plan
-
Increase hydralazine
Continue with torsemide
Awaiting placement
Assessment / Plan
Assessment / Plan
#Acute hypoxemic respiratory insufficiency
#Right-sided transudative pleural effusion
# Multifocal pneumonia most pronounced in right lower lobe
-Status post course of IV Lasix for decompensated HFpEF; now on torsemide 10 mg daily, no GDMT
-Had chest x-ray performed 09/17 that showed moderate loculated right pleural effusion
-MRSA screen pending; blood culture NGTD; urine Legionella and streptococcal antigens negative
-Thoracentesis on 09/19 transudative per lights criteria and protein ratios; pH >7.4 low suspicion for empyema or parapneumonic
-Pulmonology following; started IV Zosyn after thoracentesis; repeat CT shows signs of multifocal pneumonia
-AFB and Pleural Cx neg;
-Complete augmentin 7 day course;
-Aspiration precautions, as needed nebs
-Serial chest x-ray to monitor effusion prn
-SpO2 goal > 90%. Incentive spirometry
#Acute on chronic HFpEF
Cardiology and nephrology correspondence noted. Restarted torsemide at 5 mg
mild uptrend in weight s/p 40mg Lasix on 09/29.
Wt downtrended.
#BRANDON on CKD 3a
# Mild hyperkalemia. Already on diuretics. Monitor for now.
#Contraction alkalosis with respiratory acidosis
#Acidosis from acetazolamide
-Baseline creatinine in the range of 1.1-1.3; No chronic acidemia or signs of bone mineral disease
-Creatinine up to 1.7, as of 09/22, after IV diuresis; now holding acetazolamide and torsemide
-Cr improved
-Avoid nephrotoxic agents
-Continue to monitor BMP
-Cardiology and nephrology correspondence noted. Will restart torsemide at 5 mg and observe. If needed can dose to 10mg if w/SOB.
# Suspected UGIB
#Acute on chronic anemia
-Patient had melenic bowel movement overnight 09/24 into 09/25
-Received 1 unit PRBC earlier in hospital stay though workup negative
-iron studies and B vitamins without deficiency; reticulocyte 2.8%; LFTs normal; normal EPO
-Hemoglobin 5.4 after melena; s/p 3 units total here
-Consulted hematology, recommended checking EPO and SPEP
-Remains hemodynamically stable despite blood loss
-PPI IV bid x 4 week than daily afterwards
-Follow-up SPEP for completeness-normal
-Will continue to trend CBC, monitor for bleeding
-Transfuse for hemoglobin <7.0 or symptoms
-GI will hold off on endoscopy for now. Daughter highly hesistant for any procedures. Having formed brown BM.
#Hypervolemic hyponatremia
-Sodium as low as 125 here; associated with decompensated heart failure
-Nephrology following, s/p 1 dose of Samsca with sodium up to 140
-Continue to trend BMP
#Abdomen bloating
-holding bowel regimen
-Gas x
#Dyslipidemia
-No known ASCVD history, remains on statin therapy
#Primary hypertension
-No known history of hypertensive systemic diseases
-Home medications include nifedipine and hydralazine. Hydralazine evening dose increased
-Blood pressure elevated during overnight
#Chronic RBBB
DVT prophylaxis: SCDs
CODE STATUS: Full code
PT/OT-SNF vs. HH. PT/daughter prefers SNF which would be advisable as patient will be by herself at home while family is working. CM aware. Start dispo. Recommend out of bed to chair with assistance. Because [facility] [place][Note 2]. Number.
Updated patient daughter over the phone in details
Anticipated Discharge: Within 24 hours
Subjective/Interval History
-
Date of Service: October 01, 2024
states of being tired in hospital
BP elevated at night times
Objective Data
-
Labs:
Laboratory Results
10/01/24
05:48
WBC 8.0
Hgb 8.4 L
Hct 26.8 L
Plt Count 183
Sodium 136
Potassium 5.4 H
Chloride 97 L
Carbon Dioxide 37 H
BUN 36 H
Creatinine 1.0
Glucose 97
Calcium 8.4
Vital Signs:
Vital Signs
Temp Pulse Resp BP Pulse Ox
97.5 F 62 16 111/45 99
10/01/24 07:54 10/01/24 12:06 10/01/24 07:54 10/01/24 12:06 10/01/24 09:30
I&O
09/30/24 10/01/24 10/02/24
06:59 06:59 06:59
Intake Total 900 / 900 740 / 740
Output Total 200 / 200 500 / 500
Balance 900 / 900 -200 / -200 240 / 240
--- NOTE | 2024-10-01 13:19 | CM ---
Spoke with daughter Thomas [phone]
Does not want [facility]
Would prefer [facility] will tour facility
Called [facility] to check on bed availavility
no pre auth needed
PLAN: SNF, pending bed availability, await call back from [facility]
[2024-10-01 15:00] VITALS: BP 125/46
[2024-10-01] MEDS: APRESOLINE 75 MG PO (17:10)
[2024-10-01] MEDS: LIPITOR 40 MG PO (17:11)
[2024-10-01] MEDS: MELATONIN PO (20:30)
[2024-10-01 23:53] VITALS: BP 157/59
[2024-10-02 07:00] VITALS: BP 143/58
[2024-10-02] MEDS: DEMADEX 5 MG PO (09:22)
[2024-10-02] MEDS: THERAGRAN 1 TABLET PO (09:22)
[2024-10-02] MEDS: TOPROL XL 25 MG PO (09:22)
[2024-10-02] MEDS: PROCARDIA XL (EXTENDED RELEASE) 30 MG PO (09:22)
[2024-10-02] MEDS: APRESOLINE 50 MG PO (09:22)
[2024-10-02] MEDS: NSS (PRESERVATIVE FREE) 10 ML IV ×2 (09:22→20:40)
[2024-10-02] MEDS: PROTONIX IV 40 MG IV ×2 (09:23→20:40)
[2024-10-02] MEDS: VISBIOME 1 CAP PO (09:23)
[2024-10-02] MEDS: NON-FORMULARY ITEM 1 DROP LEFT EYE ×2 (09:23→20:52)
[2024-10-02 09:27] LABS: % Basophils 0.1 % (0-2); % Eosinophils 1.5 % (0-6); % Immature Granulocytes 0.4 % (0-0.5); % Monocytes 6.7 % (1.7-9.3); % Neutrophils 84.3 % (42.2-75.2); Absolute Eosinophils 0.1 10^3/uL (0-0.7); Absolute Lymphocytes 0.5 10^3/uL (1.2-3.4); Absolute Monocytes 0.5 10^3/uL (0.1-0.6); Absolute Neutrophils 6.1 10^3/uL (1.4-6.5); Hematocrit 26.6 % (37.0-47.0); Hemoglobin 8.3 g/dL (12.0-16.0); Mean Corp Hgb Conc. 31.2 g/dL (33.0-37.0); Mean Corpuscular Hgb 30.1 pg (27.0-31.0); Mean Corpuscular Volume 96.4 fL (81.0-99.0); Mean Platelet Volume 12.4 fL (7.4-10.4); Nucleated Red Blood Cells % 0 %; Platelet Count 188 10^3/uL (130-400); Red Blood Cell Count 2.76 10^6/uL (4.20-5.40); Red Cell Dist. Width 16.5 % (11.5-14.5); White Blood Cell Count 7.3 10^3/uL (4.8-10.8)
[2024-10-02 09:48] LABS: Blood Urea Nitrogen 36 mg/dl (7-17); Calcium 8.7 mg/dl (8.4-10.2); Carbon Dioxide 35 mmol/L (22-30); Chloride 96 mmol/L (98-107); Estimated Creatinine Clearance 29 ml/min; Glucose 93 mg/dl (70-99); Potassium 5.1 mmol/L (3.5-5.1); Sodium 133 mmol/L (135-145); eGFR 49.55
--- NOTE | 2024-10-02 11:04 | W.PN.HOSP.TC ---
Today's Communication/Plan
-
Continue with p.o. torsemide
Continue with increased dose of hydralazine
Wean oxygen
Assessment / Plan
Assessment / Plan
#Acute hypoxemic respiratory insufficiency
#Right-sided transudative pleural effusion
# Multifocal pneumonia most pronounced in right lower lobe
-Status post course of IV Lasix for decompensated HFpEF; now on torsemide 10 mg daily, no GDMT
-Had chest x-ray performed 09/17 that showed moderate loculated right pleural effusion
-MRSA screen pending; blood culture NGTD; urine Legionella and streptococcal antigens negative
-Thoracentesis on 09/19 transudative per lights criteria and protein ratios; pH >7.4 low suspicion for empyema or parapneumonic
-Pulmonology following; started IV Zosyn after thoracentesis; repeat CT shows signs of multifocal pneumonia
-AFB and Pleural Cx neg;
-Complete augmentin 7 day course;
-Aspiration precautions, as needed nebs
-Serial chest x-ray to monitor effusion prn
-SpO2 goal > 90%. Incentive spirometry
#Acute on chronic HFpEF
Cardiology and nephrology correspondence noted. Restarted torsemide at 5 mg
mild uptrend in weight s/p 40mg Lasix on 09/29.
Wt downtrended.
#BRANDON on CKD 3a
# Mild hyperkalemia. Already on diuretics. Monitor for now.
#Contraction alkalosis with respiratory acidosis
#Acidosis from acetazolamide
-Baseline creatinine in the range of 1.1-1.3; No chronic acidemia or signs of bone mineral disease
-Creatinine up to 1.7, as of 09/22, after IV diuresis; now holding acetazolamide and torsemide
-Cr improved
-Avoid nephrotoxic agents
-Continue to monitor BMP
-Cardiology and nephrology correspondence noted. Will restart torsemide at 5 mg and observe. If needed can dose to 10mg if w/SOB.
# Suspected UGIB
#Acute on chronic anemia
-Patient had melenic bowel movement overnight 09/24 into 09/25
-Received 1 unit PRBC earlier in hospital stay though workup negative
-iron studies and B vitamins without deficiency; reticulocyte 2.8%; LFTs normal; normal EPO
-Hemoglobin 5.4 after melena; s/p 3 units total here
-Consulted hematology, recommended checking EPO and SPEP
-Remains hemodynamically stable despite blood loss
-PPI IV bid x 4 week than daily afterwards
-Follow-up SPEP for completeness-normal
-Will continue to trend CBC, monitor for bleeding
-Transfuse for hemoglobin <7.0 or symptoms
-GI will hold off on endoscopy for now. Daughter highly hesitant for any procedures. Having formed brown BM.
#Hypervolemic hyponatremia
-Sodium as low as 125 here; associated with decompensated heart failure
-Nephrology following, s/p 1 dose of Samsca with sodium up to 140
-Continue to trend BMP
#Abdomen bloating
-holding bowel regimen
-Gas x
#Dyslipidemia
-No known ASCVD history, remains on statin therapy
#Primary hypertension
-No known history of hypertensive systemic diseases
-Home medications include nifedipine and hydralazine. Hydralazine evening dose increased
-Blood pressure elevated during overnight
#Chronic RBBB
DVT prophylaxis: SCDs
CODE STATUS: Full code
PT/OT-SNF vs. HH. PT/daughter prefers SNF which would be advisable as patient will be by herself at home while family is working. CM aware. Start dispo. Daughter stated if doing facility available in the next 24 to 48 hours then might consider
taking patient home with [facility].
Updated patient daughter over the phone in details on at bedside throughout the whole week.
Anticipated Discharge: 24 - 48 hours
Subjective/Interval History
-
Date of Service: October 02, 2024
on 1L but 100%
oxygen for comfort
Objective Data
-
Labs:
Laboratory Results
10/02/24
09:04
WBC 7.3
Hgb 8.3 L
Hct 26.6 L
Plt Count 188
Sodium 133 L
Potassium 5.1
Chloride 96 L
Carbon Dioxide 35 H
BUN 36 H
Creatinine 1.1 H
Glucose 93
Calcium 8.7
Vital Signs:
Vital Signs
Temp Pulse Resp BP Pulse Ox
97.4 F 77 16 143/58 94
10/02/24 07:00 10/02/24 07:00 10/02/24 07:00 10/02/24 07:00 10/02/24 07:00
I&O
10/01/24 10/02/24 10/03/24
06:59 06:59 06:59
Intake Total 1700 / 1700
Output Total 200 / 200 500 / 500
Balance -200 / -200 1200 / 1200
[2024-10-02 15:00] VITALS: BP 134/54
[2024-10-02] MEDS: APRESOLINE 75 MG PO (17:21)
[2024-10-02] MEDS: LIPITOR 40 MG PO (17:21)
[2024-10-02 20:10] VITALS: BP 100/64
[2024-10-02] MEDS: XANAX 0.25 MG PO (20:39)
[2024-10-02] MEDS: TOPROL XL PO (20:41)
[2024-10-02 23:27] VITALS: BP 152/64
[2024-10-03 05:21] VITALS: BMI 21.4
[2024-10-03 07:40] VITALS: BP 184/77
[2024-10-03] MEDS: PROTONIX IV 40 MG IV (08:01)
[2024-10-03] MEDS: NSS (PRESERVATIVE FREE) 10 ML IV (08:01)
[2024-10-03] MEDS: VISBIOME 1 CAP PO (08:02)
[2024-10-03] MEDS: LOW STRENGTH ASPIRIN 81 MG PO (08:02)
[2024-10-03] MEDS: APRESOLINE 50 MG PO (08:02)
[2024-10-03] MEDS: THERAGRAN 1 TABLET PO (08:02)
[2024-10-03] MEDS: TOPROL XL 25 MG PO (08:02)
[2024-10-03] MEDS: PROCARDIA XL (EXTENDED RELEASE) 30 MG PO (08:02)
[2024-10-03] MEDS: NON-FORMULARY ITEM 1 DROP LEFT EYE (08:03)
[2024-10-03] MEDS: DEMADEX 5 MG PO (08:03)
[2024-10-03 10:02] LABS: % Basophils 0.6 % (0-2); % Eosinophils 2.2 % (0-6); % Immature Granulocytes 0.4 % (0-0.5); % Lymphocytes 9.2 % (20.5-51.1); % Monocytes 6.8 % (1.7-9.3); % Neutrophils 80.8 % (42.2-75.2); Absolute Eosinophils 0.1 10^3/uL (0-0.7); Absolute Lymphocytes 0.5 10^3/uL (1.2-3.4); Absolute Monocytes 0.3 10^3/uL (0.1-0.6); Hematocrit 26.1 % (37.0-47.0); Hemoglobin 8.5 g/dL (12.0-16.0); Mean Corp Hgb Conc. 32.6 g/dL (33.0-37.0); Mean Corpuscular Hgb 30.8 pg (27.0-31.0); Mean Corpuscular Volume 94.6 fL (81.0-99.0); Mean Platelet Volume 11.7 fL (7.4-10.4); Nucleated Red Blood Cells % 0 %; Platelet Count 176 10^3/uL (130-400); Red Blood Cell Count 2.76 10^6/uL (4.20-5.40); Red Cell Dist. Width 16.5 % (11.5-14.5)
[2024-10-03 10:55] VITALS: BP 122/43
[2024-10-03 11:36] LABS: Blood Urea Nitrogen 35 mg/dl (7-17); Calcium 8.4 mg/dl (8.4-10.2); Carbon Dioxide 28 mmol/L (22-30); Chloride 94 mmol/L (98-107); Estimated Creatinine Clearance 33 ml/min; Glucose 107 mg/dl (70-99); Potassium 4.7 mmol/L (3.5-5.1); Sodium 131 mmol/L (135-145); eGFR 55.55
--- NOTE | 2024-10-03 12:46 | W.PN.HOSP.TC ---
Today's Communication/Plan
-
Discharge to SNF this evening
BMP and CBC in 1 week
Torsemide 5 mg
No added salt diet
Assessment / Plan
Assessment / Plan
#Acute hypoxemic respiratory insufficiency
#Right-sided transudative pleural effusion
#Multifocal pneumonia most pronounced in right lower lobe
-Status post course of IV Lasix for decompensated HFpEF; now on torsemide 10 mg daily, no GDMT
-Had chest x-ray performed 09/17 that showed moderate loculated right pleural effusion
-MRSA screen pending; blood culture NGTD; urine Legionella and streptococcal antigens negative
-Thoracentesis on 09/19 transudative per lights criteria and protein ratios; pH >7.4 low suspicion for empyema or parapneumonic
-Pulmonology following; started IV Zosyn after thoracentesis; repeat CT shows signs of multifocal pneumonia
-AFB and Pleural Cx neg; Complete augmentin 7 day course
-Aspiration precautions, as needed nebs
-Serial chest x-ray to monitor effusion prn
-SpO2 goal > 90%. Incentive spirometry
-On room air with SpO2 100% today
#Acute on chronic HFpEF
-Cardiology and nephrology correspondence noted. Restarted torsemide at 5 mg
-mild uptrend in weight s/p 40mg Lasix on 09/29.
-Continue with torsemide 5 mg daily
-Wt downtrended, appears euvolemic
#BRANDON on CKD 3a
#Mild hyperkalemia
#Contraction alkalosis with respiratory acidosis
#Acidosis from acetazolamide
-Baseline creatinine in the range of 1.1-1.3; No chronic acidemia or signs of bone mineral disease
-Creatinine up to 1.7, as of 09/22, after IV diuresis; now holding acetazolamide and torsemide
-Cr improved
-Avoid nephrotoxic agents
-Continue to monitor BMP
-Cardiology and nephrology correspondence noted.
-C/w torsemide at 5 mg and observe. If needed can dose to 10mg if w/SOB.
#Suspected UGIB
#Acute on chronic anemia
-Patient had melenic bowel movement overnight 09/24 into 09/25
-Received 1 unit PRBC earlier in hospital stay though workup negative
-iron studies and B vitamins without deficiency; reticulocyte 2.8%; LFTs normal; normal EPO
-Hemoglobin 5.4 after melena; s/p 3 units total here
-Consulted hematology, recommended checking EPO and SPEP
-Remains hemodynamically stable despite blood loss
-PPI IV bid x 4 week than daily afterwards
-Follow-up SPEP for completeness-normal
-Will continue to trend CBC, monitor for bleeding
-Transfuse for hemoglobin <7.0 or symptoms
-GI will hold off on endoscopy for now. Daughter highly hesitant for any procedures. Having formed brown BM.
#Hypervolemic hyponatremia
-Sodium as low as 125 here; associated with decompensated heart failure
-Nephrology following, s/p 1 dose of Samsca with sodium up to 140
-Continue to trend BMP
-Serum sodium stable in the range of 130-135
#Abdomen bloating
-holding bowel regimen
-Gas x
#Dyslipidemia
-No known ASCVD history, remains on statin therapy
#Primary hypertension
-No known history of hypertensive systemic diseases
-Home medications include nifedipine and hydralazine. Hydralazine evening dose increased
-Blood pressure elevated during overnight
#Chronic RBBB
DVT prophylaxis: SCDs
CODE STATUS: Full code
Disposition: Plan for SNF, daughter to transport at 6 PM
Anticipated Discharge: Today
Subjective/Interval History
-
Date of Service: October 03, 2024
Seen and examined at the bedside. No acute events reported overnight. AFVSS this morning
Patient appears very well. Hemoglobin and renal function stable. Sodium slightly down, from 133-131 today
She denies any acute complaints and states she feels very well
Objective Data
-
Labs:
Laboratory Results
10/03/24
09:55
WBC 5.0
Hgb 8.5 L
Hct 26.1 L
Plt Count 176
Sodium 131 L
Potassium 4.7
Chloride 94 L
Carbon Dioxide 28
BUN 35 H
Creatinine 1.0
Glucose 107 H
Calcium 8.4
Vital Signs:
Vital Signs
Temp Pulse Resp BP Pulse Ox
97.6 F 59 16 122/43 100
10/03/24 07:40 10/03/24 10:55 10/03/24 07:40 10/03/24 10:55 10/03/24 07:40
I&O
10/02/24 10/03/24 10/04/24
06:59 06:59 06:59
Intake Total 1700 / 1700 1200 / 1200
Output Total 500 / 500
Balance 1200 / 1200 1200 / 1200
Review of Systems
-
History Source: Patient
All other systems: Reviewed and negative
Physical Exam
-
General: Well Developed, No Apparent Distress, Comfortable, Appears Chronically Ill and Other (Frail-appearing)
HEENT: Normocephalic, Atraumatic, Moist Mucous Membranes and Anicteric
Respiratory: Non Labored Respirations and Decreased Breath Sounds; Negative Accessory Resp Muscle Use
Cardiac: Regular Rhythm and S1/S2; Negative Murmur, Rub, JVD or Gallop
GI: Soft, Nontender, Nondistended and Normal Bowel Sounds
Musculoskeletal: No Clubbing, No Cyanosis and No Edema
Skin: Warm, Dry and Normal Turgor; Negative Rash
Neuro: AO x 3 and Nonfocal/Grossly Intact
Psych: Calm
Data Reviewed
-
Labs: Labs Reviewed by me, Discussed with Physician and Discussed with Patient
[2024-10-03 13:01] VITALS: BP 137/59; PULSE 66; O2SAT 89
--- NOTE | 2024-10-03 13:03 | CM ---
MD indicated pt ready for dc .
No Bed at [facility].
Berta from [facility] call [phone] has bed availability.
Spoke with jad Guzman [phone] she agrees with [facility] Pt still need oxygen( new oxygen ).
Medical nec form completed for ambulance.
IMM reviewed with dgt emailed copy [email or web address]
[facility]
report [phone]
fax [phone]
PLAN To [facility] today
[2024-10-03 13:46] VITALS: BP 137/59; PULSE 66; O2SAT 90
[2024-10-03 15:42] VITALS: BP 140/61
--- NOTE | 2024-10-03 16:00 | W.DCSUMMARY ---
Discharge Summary
Discharge Data
Date of Admission: 09/10/24
Date of Discharge: 10/03/24
Total time spent discharging patient (in min): 36
-
Pending Results: No
Hospital Course
Discharging Physician :�Art Rivera DO
Disposition :���� SNF
Principal Discharge diagnosis :�
Acute hypoxemic respiratory insufficiency
Right-sided transudative pleural effusion s/p thoracentesis
Acute on chronic HFpEF
BRANDON on CKD
Mild hyperkalemia
Contraction alkalosis with respiratory acidosis
Upper GI bleeding and acute blood loss anemia
Status post 3 units of PRBC
Hypervolemic hyponatremia
Chronic Discharge diagnosis :�
HTN
HLD
RBBB
HFpEF
CKD 3a
Hospital Course :
84-year-old female that initially presented to the hospital with shortness of breath and diagnosis of acute HFpEF. Was treated with IV diuretics however ultimately transition to oral regimen. Developed pleural effusion secondary to HFpEF,
transudative fluid studies after thoracentesis. Developed BRANDON from overdiuresis and torsemide was held, as well as acetazolamide which was used over multiple days. Developed contraction alkalosis with compensatory respiratory acidosis. Was stable
on 1 L of oxygen over multiple days in the hospital, no significant respiratory distress. Renal function ultimately improved off of diuretics and she was resumed on torsemide 5 mg at time of discharge. Recommendation for right heart cath inpatient
however family did not want any procedures after thoracentesis. Home hydralazine was adjusted due to elevated blood pressure later in hospital course
Did have moderate hyponatremia, likely hypervolemic, in the context of her HFpEF on arrival. Received 1 dose of Samsca at nephrology's discretion. Sodium improved to normal range and by time of discharge was in the range of 130-135 on torsemide 5
mg. Recommendation to repeat renal function 1 week after discharge while at SNF.
Developed downtrending hemoglobin of unclear etiology. Evaluated by GI and hematology, EPO levels were normal and SPEP was unremarkable. Iron studies inconclusive without significant MARCIN. Did receive IV iron in the hospital at nephrology's
recommendation. Eventually developed melena with significant drop in hemoglobin down to 5.2. Received ultimately 3 units of PRBCs while in the hospital and hemoglobin stabilized in the range of 8-8.5. Was treated with IV PPI twice daily with
transition to oral regimen for 4 weeks. At the end of 4 weeks will continue on daily PPI for an additional 4 weeks.
Consultants :
Cardiology: Joel Dickson MD
Nephrology: Isaura Matos MD
Pulmonology: Rome Arita MD
Gastroenterology: Margoth Aguilar DO
Hematology: Keon Arce DO
Important imaging findings :�
TTE (09/22/24)
Normal left ventricular chamber size. Normal left ventricular systolic function.
Left ventricular ejection fraction is 60-65%. Normal regional wall motion.
Normal left ventricular wall thickness.
Mild to moderate mitral regurgitation.
Mild tricuspid regurgitation.
Estimated pulmonary artery pressure of 45-50 mmHg assuming a right atrial pressure of 3 mmHg.
When compared to prior echocardiogram from September 12, 2024, there is no significant change.
Chest CT without IV contrast (09/19/2024)
IMPRESSION: Interval improvement within the right-sided pleural effusion with trace residual right-sided pleural effusion. No pneumothorax.There is bilateral lower lobe bronchial wall thickening with bilateral lower lobe nodular
opacities/consolidations which represent atelectasis, however is suspicious for multifocal pneumonia. Additionally there are ground glass opacities within the right middle and upper lobes which may be infectious/inflammatory. Recommend follow-up to
ensure resolution. Diffuse hypoattenuation of the mediastinal blood pool which can be seen with anemia.
CT C/A/P without IV contrast (09/22/2024)
IMPRESSION: There is no evidence of retroperitoneal hematoma. There is increased small right pleural effusion with new trace left pleural effusion and adjacent atelectasis. There are stable scattered opacities including the left lower lobe which may
be infectious/inflammatory nature and may represent pneumonia. Cholelithiasis. There is mild stranding surrounding the gallbladder which is nondistended. Findings are mildly suspicious for cholecystitis. Consider correlation with right upper
quadrant ultrasound. 4 mm nonobstructing stone in the interpole the left kidney. Mild colonic stool burden.
Procedure findings :� N/A
Follow-up :
Follow-up with primary care, pulmonology referral, cardiology referral, and primary technical artist
CBC and BMP 1 week after discharge
Discharge Plan
-
Patient Disposition: Care Home/SNF
Discharge Diagnosis/Procedures: Acute hypoxic respiratory insufficiency
Right-sided pleural effusion status post thoracentesis
Acute on chronic diastolic heart failure exacerbation
Acute kidney injury chronic kidney disease
Mild hyperkalemia
Contraction alkalosis with respiratory acidosis
Suspected upper GI bleeding
Acute on chronic anemia
Blood transfusion
Hypervolemic hyponatremia
Abdominal bloating
Condition: Fair
Diet: No added salt and Restrict fluids to 48 oz
Activity: As tolerated
Driving Restrictions: Not until seen by your Dr
Bathing Restrictions: None
Blood Work: BMP and CBC in 1 week
Other Services: PT and OT
Activity Restrictions/Additional Instructions:
After discharge from the hospital you should follow-up with your family doctor. Should be seen in the office within 1 to 2 weeks of discharge from the hospital
Follow-up with cardiology, appointment scheduled on 11/07/2024 at 11:20 AM
Call pulmonology referral office to schedule an appointment within 3 to 4 weeks of discharge from the hospital
Instructions: *[facility] Heart Failure Instructions
Referrals:
Lindsay Machado MD [Family Provider] - in less than 1 week
Rome Arita MD [Active] - in three to four weeks (full PFTs on day of office visit)
Rose Regalado DO [Active] - 11/07/24 11:20 am (You have a cardiology follow-up appointment at the [facility] office. Please call with questions)
Additional Discharge Medication Instructions: Continue torsemide 5 mg daily
Continue hydralazine 50 mg in the morning and 75 mg in the evening
Continue pantoprazole 40 mg twice daily for 4 weeks. On October 24, 2024 can de-escalate to 40 mg once daily to complete another 4 weeks
Prescriptions:
New
hydralazine 50 mg Tablet
50 mg PO DAILY Qty: 30 0RF
hydralazine 25 mg Tablet
75 mg PO QPM 30 Days Qty: 90 0RF
pantoprazole [Protonix] 40 mg tablet,delayed release (DR/EC)
40 mg PO BID Qty: 60 0RF
Rx Instructions:
Protonix twice daily for 4 weeks then daily
lorazepam 0.5 mg Tablet
0.5 mg PO Q4HPRN PRN (Reason: anxiety) 5 Days Qty: 20 0RF
Continued
multivitamin with folic acid [Tab-A-Luba] 1 TABLET tablet
1 tab PO DAILY
metoprolol succinate 25 MG tablet extended release 24 hr
25 mg PO DAILY Qty: 30 0RF
atorvastatin 40 mg Tablet
40 mg PO QPM Qty: 30 0RF
aspirin 81 mg Tablet,Chewable
81 mg PO DAILY Qty: 30 1RF
calcium carbonate 500 mg calcium (1,250 mg) Tablet
500 mg PO DAILY
nifedipine 30 mg Tablet Extended Release 24hr
30 mg PO DAILY
omega 6-bbi-aug-fish oil [Fish Oil] 1,000 (120-180) mg Capsule
1 cap PO DAILY
Lokelma 5 gram Powder In Packet
5 g PO DAILY
Patient Comments:
patient has samples from
[id number] 1-0.5-0.075 % Drops,Suspension
1 drp ophthalmic (eye) BID
Patient Comments:
patient's daughter showed me an email confirmation regarding this drug from [facility]. I tried to call them, but they are closed.
Rx Instructions:
left eye - medication started on 09/06, now reduced to BID. Last dose 10/04.
Changed
torsemide 5 mg Tablet
10 mg PO DAILY Qty: 60 0RF
Discontinued
hydralazine 25 MG tablet
50 mg PO BID Qty: 60 0RF
Discharge Orders:
Discharge Patient (As Directed); Ordered 10/03/24
Ordered By: Art Rivera
Discharge Date and Time
Print Language: MALTESE
== END 2024-10-03 16:02 | DRG 291 ==
LOC: 3 WEST ACU 17:22
PROVIDERS: Hospitalist; Internal Medicine; Internal Medicine Cardiovascular Disease; Nurse Practitioner Acute Care; Nurse Practitioner Family; Radiology Vascular & Interventional Radiology; Registered Nurse; Specialist; ADMITTING PHYSICIAN Hospitalist; ATTENDING PHYSICIAN Internal Medicine; CONSULT PHYSICIAN Internal Medicine; CONSULT PHYSICIAN Internal Medicine Cardiovascular Disease; CONSULT PHYSICIAN Internal Medicine Critical Care Medicine; EMERGENCY PHYSICIAN Student in an Organized Health Care Education/Training Program; FAMILY PHYSICIAN Emergency Medicine; OTHER PHYSICIAN Internal Medicine Hematology & Oncology
PROC: 0W993ZZ Drainage of Right Pleural Cavity, Percutaneous Approach (ICD-10-PCS; 2024-09-19)
PROC: 30233N1 Transfusion of Nonautologous Red Blood Cells into Peripheral Vein, Percutaneous Approach (ICD-10-PCS; 2024-09-21)
PROC: 5A0935A Assistance with Respiratory Ventilation, Less than 24 Consecutive Hours, High Flow/Velocity Cannula (ICD-10-PCS; 2024-09-30)
DX: I13.0 Hypertensive heart and chronic kidney disease with heart failure and stage 1 through stage 4 chronic kidney disease, or unspecified chronic kidney disease (principal); I50.33 Acute on chronic diastolic (congestive) heart failure; J18.9 Pneumonia, unspecified organism; N17.9 Acute kidney failure, unspecified; E87.1 Hypo-osmolality and hyponatremia; E87.20 Acidosis, unspecified; I47.19 Other supraventricular tachycardia; J91.8 Pleural effusion in other conditions classified elsewhere; E87.29 Other acidosis; E87.3 Alkalosis; K92.1 Melena; E78.00 Pure hypercholesterolemia, unspecified; I25.10 Atherosclerotic heart disease of native coronary artery without angina pectoris; M54.6 Pain in thoracic spine; D63.1 Anemia in chronic kidney disease; Z86.16 Personal history of COVID-19; Z87.01 Personal history of pneumonia (recurrent); Z11.52 Encounter for screening for COVID-19; E87.5 Hyperkalemia; I25.2 Old myocardial infarction; R06.89 Other abnormalities of breathing; R09.02 Hypoxemia; K59.00 Constipation, unspecified; N18.31 Chronic kidney disease, stage 3a; T50.2X5A Adverse effect of carbonic-anhydrase inhibitors, benzothiadiazides and other diuretics, initial encounter; I27.20 Pulmonary hypertension, unspecified; I45.10 Unspecified right bundle-branch block; Z79.899 Other long term (current) drug therapy; Z79.82 Long term (current) use of aspirin
CPT/HCPCS: 88305; 93308; 32555; 36600; 71045; 71046; 71250; 74176; 76604; 80048; 80053; 81003; 81015; 82040; 82150; 82248; 82570; 82607; 82668; 82728; 82746; 82784; 82805; 82945; 83521; 83540; 83550; 83615; 83735; 83880; 83930; 83935; 83986; 84145; 84155; 84156; 84157; 84165; 84300; 84443; 84478; 84484; 85014; 85018; 85025; 85027; 85045; 86334; 86850; 86900; 86901; 86920; 87015; 87040; 87070; 87102; 87116; 87205; 87206; 87449; 87502; 87811; 87899; 88112; 89051; 92610; 93005; 93306; 93321; 93325; 94640; 97116; 97162; 97167; 97530; 97535; 99285; J2916; P9016